=== PATIENT | female | born 1935 | race Caucasian/White ===

== ENCOUNTER → 2016-04-23 | Outpatient (CLI) | payer MEDICARE ==
--- NOTE | 2016-04-27 07:36 | CAROTID DOPPLER PRO FEE REPORT ---
CAROTID DUPLEX DOPPLER REPORT PAT[id number] ROOM#: DATE OF STUDY: 04/23/16 DATE OF : 1935 REFERRING MD: PACHECO FRAUSTO M.D. ORDER NO: [id number] TECHNOLOGIST: VINNY INDICATION: Syncope and TIA. STUDY: The color carotid duplex scan was performed with real time images and real time Doppler velocity measurements. Real time images indicated moderate bilateral heterogenous plaque formation in both carotid arteries. Doppler velocity measurements were as follows: MEASUREMENT: RIGHT LEFT CCA PSV (prox/mid) 84 cm/sec 86 cm/sec CCA PSV (distal) 58 cm/sec 82 cm/sec CCA EDV (prox/mid) 14 cm/sec 14 cm/sec CCA EDV (distal) 12 cm/sec 15 cm/sec ICA PSV (proximal) 51 cm/sec 73 cm/sec ICA PSV (distal) 49 cm/sec 108 cm/sec ICA EDV (proximal) 14 cm/sec 20 cm/sec ICA EDV (distal) 16 cm/sec 26 cm/sec ECA 49 cm/sec 59 cm/sec ICA/CCA RATIO: 0.9 1.3 Vertebrals are patent. Flow is cephalad. FINAL IMPRESSION: MODERATE BILATERAL PLAQUE FORMATION. LESS THAN 50% STENOTIC FLOW. INTERPRETING PHYSICIAN: PACHECO FRAUSTO M.D. /: LSUD TT: [id number] ID: [id number] /: [id number] TD: 1334 JOB: [id number] cc:PACHECO FRAUSTO M.D. >
== END ==
LOC: SP 10:10
PROVIDERS: ATTEND Specialist
DX: G45.9 Transient cerebral ischemic attack, unspecified (principal); R56.9 Unspecified convulsions; R55 Syncope and collapse
CPT/HCPCS: 93880

== ENCOUNTER → 2016-10-12 | Outpatient (CLI) | payer MEDICARE ==
--- NOTE | 2016-10-12 16:46 | RADIOLOGY REPORT (SQ) ---
EXAM DESCRIPTION: HIP LEFT AP/LATERAL COMPLETED DATE/TIME: 10/12/2016 1:33 pm REASON FOR STUDY: PAIN IN LEFT LEG M79.605 PAIN IN LEFT LEG COMPARISON: 02/05/2016 NUMBER OF VIEWS: Two views. TECHNIQUE: AP pelvis and additional frog-leg view of the left hip. LIMITATIONS: None. FINDINGS: MINERALIZATION: Normal. LEFT HIP: There is no acute fracture or dislocation. There is internal fixation for prior femoral ne ck fracture. The joint space is narrowed. Small marginal osteophytes are seen on the femoral head. RIGHT HIP: No fracture or dislocation. No worrisome bone lesions. PUBIS AND ISCHIUM: No fracture. PELVIS: No fracture. SACRUM: No fracture or dislocation. No worrisome bone lesions. LOWER LUMBAR SPINE: No fracture or dislocation. No worrisome bone lesions. No significant disc disea se. SOFT TISSUES: No findings. OTHER: No other significant finding. 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 Internal fixation of a prior fracture. TECHNICAL DOCUMENTATION: JOB ID: [id number] [employer] All Rights Reserved
== END ==
LOC: OD 13:03
PROVIDERS: ATTEND Family Medicine
DX: M79.605 Pain in left leg (principal); M16.12 Unilateral primary osteoarthritis, left hip

== ENCOUNTER → 2016-11-17 | Outpatient (CLI) | payer MEDICARE ==
--- NOTE | 2016-11-17 17:44 | XCELERA REPORT ---
[address] [address] Transthoracic Echocardiogram Report Name: THEODORA JACKSON Age: 81 yrs Gender: Female : 1935 Patient Status: Outpatient Patient Location: Study Date: 11/17/2016 11:09 AM Height: 62 in Weight: 120 lb BSA: 1.5 m2 Procedure: A two-dimensional transthoracic echocardiogram with color flow and Doppler was performed. Study Quality: Fair. Reason For Study: SYNCOPE History: SYNCOPE. Ordering Physician: LUCIE BRADY Performed By: Viky Robertson Interpretation Summary The left ventricle is normal in size. There is normal left ventricular wall thickness. LV EF is > than 60% Left ventricular systolic function is normal. Doppler measurements suggest impaired left ventricular relaxation, which is associated with grade I/IV or mild diastolic dysfunction The left ventricular wall motion is normal. There is no thrombus. There is no ventricular septal defect visualized. The right atrium is normal. The left atrial size is normal. The interatrial septum is intact with no evidence for an atrial septal defect. There is no evidence of mitral valve prolapse. There is no mitral valve stenosis. There is no mitral regurgitation noted. There is no aortic valvular vegetation. There is Aortic Sclerosis without stenosis. There is no LVOT obstruction. There is a mild amount of aortic regurgitation There is no tricuspid stenosis. There is a trace amount of tricuspid regurgitation Right ventricular systolic pressure is normal. RVSP is 12 m of Hg , with RA mean of 5. There is no pericardial effusion. MMode/2D Measurements & Calculations RVDd: 2.5 cm LVIDd: 4.1 cm FS: 33.3 % Ao root diam: 2.9 cm IVSd: 0.89 cm LVIDs: 2.7 cm EDV(Teich): 72.2 ml LVPWd: 0.93 cmESV(Teich): 27.1 ml Ao root area: 6.7 cm2 EF(Teich): 62.5 % LVOT diam: 2.2 cm LVOT area: 4.0 cm2 Doppler Measurements & Calculations MV E max leigh: MV dec slope: Ao V2 max: AI max leigh: 65.9 cm/sec 337.1 cm/sec2 191.6 cm/sec 536.8 cm/sec MV A max leigh: MV dec time: Ao max PG: AI max P.4 cm/sec 0.20 sec 14.7 mmHg 115.3 mmHg MV E/A: 0.80 DARSHAN(V,D): 2.1 cm2AI dec slope: 273.7 cm/sec2 AI P1/2t: 574.6 msec LV V1 max PG: PA V2 max: TR max leigh: 4.3 mmHg 102.5 cm/sec 132.5 cm/sec LV V1 max: PA max P.2 mmHg TR max P.4 cm/sec 7.0 mmHg Left Ventricle The left ventricle is normal in size. There is normal left ventricular wall thickness. LV EF is > than 60%. Left ventricular systolic function is normal. Doppler measurements suggest impaired left ventricular relaxation, which is associated with grade I/IV or mild diastolic dysfunction. The left ventricular wall motion is normal. There is no thrombus. There is no ventricular septal defect visualized. Right Ventricle The right ventricle is normal in size and function. Atria The right atrium is normal. The left atrial size is normal. The interatrial septum is intact with no evidence for an atrial septal defect. Mitral Valve There is no evidence of mitral valve prolapse. There is no vegetation seen on the mitral valve. There is no mitral valve stenosis. There is no mitral regurgitation noted. Aortic Valve There is no aortic valvular vegetation. There is Aortic Sclerosis without stenosis. There is no LVOT obstruction. There is a mild amount of aortic regurgitation. Tricuspid Valve There is no tricuspid stenosis. There is a trace amount of tricuspid regurgitation. Right ventricular systolic pressure is normal. RVSP is 12 m of Hg , with RA mean of 5. Pulmonic Valve There is no pulmonic valvular stenosis. There is no pulmonic valvular regurgitation. Great Vessels The aortic root is normal size. Effusions There is no pericardial effusion. : LUCIE BRADY > Lucie Brady
== END ==
LOC: SP 11:00
PROVIDERS: ATTEND Specialist
DX: R55 Syncope and collapse (principal)
CPT/HCPCS: 93306

== ENCOUNTER → 2017-01-25 | Outpatient (CLI) | payer MEDICARE ==
--- NOTE | 2017-01-25 17:57 | RADIOLOGY REPORT (SQ) ---
EXAM DESCRIPTION: HIPS BILATERAL COMPLETED DATE/TIME: 01/25/2017 5:35 pm REASON FOR STUDY: PAIN IN RIGHT HIP,PAIN IN LEFT HIP M25.551 PAIN IN RIGHT HIP M25.552 PAIN IN LEF T HIP COMPARISON: None. NUMBER OF VIEWS: Two views TECHNIQUE: AP pelvis and additional frog-leg view of both hips. LIMITATIONS: None. FINDINGS: MINERALIZATION: Normal. HIPS: There is pinning of the left hip. The joint spaces are maintained. No acute abnormality is se en in either hip. PELVIS AND SACRUM: No acute fracture or dislocation. No worrisome bone lesions. PUBIS AND ISCHIUM: No acute fracture. LOWER LUMBAR SPINE: No significant findings as visualized. SOFT TISSUES: No findings. OTHER: No other significant finding. IMPRESSION: NEGATIVE STUDY OF THE PELVIS AND HIPS. TECHNICAL DOCUMENTATION: JOB ID: [id number] [employer]- All Rights Reserved
== END ==
LOC: OD 17:01
PROVIDERS: ATTEND Family Medicine
DX: M25.551 Pain in right hip (principal); M25.552 Pain in left hip
CPT/HCPCS: 73522

== ENCOUNTER → 2017-02-17 | Outpatient (CLI) | payer MEDICARE ==
--- NOTE | 2017-02-17 13:44 | WOMENS IMAGING REPORT ---
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 TECHNIQUE: Dual-Energy X-ray Absorptiometry (DEXA) of the AP Spine and Hip. LIMITATIONS: None. FINDINGS: LUMBAR SPINE: The bone mineral density (BMD) measured from L1-L4 in the AP projection correlates with a T-score of -2.2, which is osteopenia as defined by the World Health Organization. Formal: The bone mineral density (BMD) measured in the left forearm correlates with a T-score of -3.6, which is osteoporosis as defined by the World Health Organization. IMPRESSION: 1. LUMBAR SPINE: Osteopenia 2. Forearm: Osteoporosis COMMENT: The World Health Organization defines low BMD as follows: T-score: Normal: Greater than -1.0 Osteopenia: Between -1.0 and -2.5 Osteoporosis: Less than -2.5 without fractures Established osteoporosis: Less than -2.5 with fractures In general, you may wish to consider: Diagnosis Treatment Follow-up DEXA Normal BMD Prevention 2-3 years Osteopenia Prevention/Therapy 1-2 years Osteoporosis Therapy Yearly TECHNICAL DOCUMENTATION: JOB ID: [id number] [employer]- All Rights Reserved
== END ==
LOC: WI 10:40
PROVIDERS: ATTEND Physician Assistant Surgical
DX: M81.0 Age-related osteoporosis without current pathological fracture (principal)
CPT/HCPCS: 77080

== ENCOUNTER → 2017-03-03 | Outpatient (CLI) | payer MEDICARE, MEDICAID ==
[2017-03-03 15:14] LABS: ABSOLUTE EOSINOPHILS # (AUTO) 0.4 10^3/uL (0.0-0.6); ABSOLUTE LYMPHOCYTES (AUTO) 2.1 10^3/uL (0.5-4.7); ABSOLUTE NEUT (AUTO) 7.1 10^3/uL (1.7-8.2); BASOPHILS % (AUTO) 0.4 % (0-2); EOSINOPHILS % (AUTO) 3.8 % (0-6); HEMATOCRIT 38.2 % (36.0-47.0); HEMOGLOBIN 12.8 g/dL (12.0-15.5); LYMPHOCYTES % (AUTO) 19.8 % (13-45); MEAN CORPUSCULAR HEMOGLOBIN 29.4 pg (27.0-33.4); MEAN CORPUSCULAR HGB CONC 33.6 g/dL (32.0-36.0); MEAN CORPUSCULAR VOLUME 87 fl (80-97); MONOCYTES % (AUTO) 9.5 % (3-13); PLATELET COUNT 300 10^3/uL (150-450); RED BLOOD COUNT 4.37 10^6/uL (3.72-5.28); RED CELL DISTRIBUTION WIDTH 14.5 % (11.5-14.0); SEGMENTED NEUTROPHILS % (AUTO) 66.5 % (42-78); TOTAL CELLS COUNTED % (AUTO) 100 %; WHITE BLOOD COUNT 10.7 10^3/uL (4.0-10.5)
[2017-03-03 15:43] LABS: ALANINE AMINOTRANSFERASE 24 U/L (9-52); ALBUMIN 4.3 g/dL (3.5-5.0); ALKALINE PHOSPHATASE 88 U/L (38-126); ANION GAP 10 (5-19); ASPARTATE AMINO TRANSFERASE 22 U/L (14-36); BILIRUBIN,DIRECT 0.1 mg/dL (0.0-0.4); BILIRUBIN,TOTAL 0.7 mg/dL (0.2-1.3); BLOOD UREA NITROGEN 26 mg/dL (7-20); CARBON DIOXIDE 30 mmol/L (22-30); CHLORIDE 104 mmol/L (98-107); GLUCOSE 74 mg/dL (75-110); POTASSIUM 4.1 mmol/L (3.6-5.0); SODIUM 144.4 mmol/L (137-145); TOTAL PROTEIN 7.3 g/dL (6.3-8.2)
== END ==
LOC: OD 14:32
PROVIDERS: ATTEND Physician Assistant Surgical
DX: M81.0 Age-related osteoporosis without current pathological fracture (principal); M16.11 Unilateral primary osteoarthritis, right hip; E21.3 Hyperparathyroidism, unspecified
CPT/HCPCS: 36415; 80053; 82308; 83970; 85025

== ENCOUNTER 2017-08-11 11:06 | Day surgery (SDC) | payer MEDICARE, MEDICAID ==
[~2017-08-11 11:06] MED LIST: PROPOFOL INJ 200 MG/20 ML VIAL IV ONE
[2017-08-11 12:25] VITALS: BP 121/64
--- NOTE | 2017-08-11 13:43 | Operative Report ---
Operative Report DATE OF SURGERY: 08/11/17 Operative Report: The risks, benefits and alternatives of the procedure including risks of bleeding, perforation requiring surgery are explained to the patient in detail and informed consent was obtained. She was taken back to the endoscopy suite and placed in the left, lateral decubital position. Timeout was called. Propofol medications administered. A rectal examination is done which did not reveal any masses, tears or fissures. An Olympus videoscope was inserted into the patient's rectum. The scope was then carefully advanced all the way to the cecum. The cecum was identified by the usual anatomical landmarks including the ileocecal valve as well as the appendiceal office. Photodocumentation is obtained. The scope was then sequentially pulled back via the various segments of the colon including the ascending colon, hepatic flexure, transverse colon, splenic flexure, descending colon and finally into the rectosigmoid portions of the colon. Retroflexion maneuvers performed. The risks benefits and alternatives of the procedure explained to the patient in detail and informed consent is obtained.A GIF Olympus video scope was inserted into the patient's mouth and hypopharynx, the esophagus is identified intubated and insufflated, the scope was then advanced through the esophagus stomach and duodenum, retroflexion maneuver is done, the esophagus stomach and first and second portions of the duodenum examined PREOPERATIVE DIAGNOSIS: Personal history of polyp. Diverticulosis. Abdominal pain, gastroesophageal reflux disease POSTOPERATIVE DIAGNOSIS: Diverticulosis. Right-sided colon inflammation status post biopsy. Gastritis status post biopsy rule out Helicobacter pylori. Internal hemorrhoids OPERATION: Colonoscopy with biopsy. EGD with biopsy SURGEON: WILSON CARNEY ANESTHESIA: LMAC TISSUE REMOVED OR ALTERED: As noted above. COMPLICATIONS: None. ESTIMATED BLOOD LOSS: None. INTRAOPERATIVE FINDINGS: As noted above. PROCEDURE: Patient tolerated the procedure well. No immediate postprocedure complications are noted. Patient discharged in good condition. Discharge date 08/11/2017. Discharge diet: Regular. Discharge activity: Regular. 2-3 week follow-up to discuss findings. Patient is instructed to call the office or proceed to the emergency room should there be any further problems or questions. We will wait on pathology.
== END 2017-08-11 12:10 | disposition home or self-care (01) ==
LOC: END 11:06
PROVIDERS: ATTEND Internal Medicine Gastroenterology
DX: K57.30 Diverticulosis of large intestine without perforation or abscess without bleeding (principal); K52.9 Noninfective gastroenteritis and colitis, unspecified; K29.50 Unspecified chronic gastritis without bleeding; K21.0 Gastro-esophageal reflux disease with esophagitis; K64.8 Other hemorrhoids; Z86.010 Personal history of colon polyps; J44.9 Chronic obstructive pulmonary disease, unspecified; I10 Essential (primary) hypertension; E78.5 Hyperlipidemia, unspecified; D64.9 Anemia, unspecified; E21.3 Hyperparathyroidism, unspecified; I38 Endocarditis, valve unspecified; Z79.899 Other long term (current) drug therapy; Z79.51 Long term (current) use of inhaled steroids; Z79.1 Long term (current) use of non-steroidal anti-inflammatories (NSAID); Z88.2 Allergy status to sulfonamides; Z88.1 Allergy status to other antibiotic agents; Z88.0 Allergy status to penicillin; Z86.73 Personal history of transient ischemic attack (TIA), and cerebral infarction without residual deficits
CPT/HCPCS: 43239; 45380; 88342 ×2; 88305 ×2; J2704; 813

== ENCOUNTER → 2017-12-27 | Outpatient (CLI) | payer MEDICAID, MEDICARE ==
--- NOTE | 2017-12-27 17:41 | RADIOLOGY REPORT (SQ) ---
EXAM DESCRIPTION: CHEST 2 VIEWS COMPLETED DATE/TIME: 12/27/2017 5:23 pm REASON FOR STUDY: MRI SCREENING COMPARISON: None. EXAM PARAMETERS: NUMBER OF VIEWS: two views TECHNIQUE: Digital Frontal and Lateral radiographic views of the chest acquired. RADIATION DOSE: NA LIMITATIONS: none FINDINGS: LUNGS AND PLEURA: Hyperexpansion of the lungs. Subsegmental atelectasis in the bases. MEDIASTINUM AND HILAR STRUCTURES: No masses or contour abnormalities. HEART AND VASCULAR STRUCTURES: Heart normal size. No evidence for failure. BONES: No acute findings. HARDWARE: Heart valve. Sternotomy wires. OTHER: No other significant finding. IMPRESSION: Chronic lung changes. Hardware as described. TECHNICAL DOCUMENTATION: JOB ID: [id number] [employer]- All Rights Reserved Reading location - IP/workstation name: [email or web address]
== END ==
LOC: RAD 16:54
PROVIDERS: ATTEND Family Medicine
DX: R29.810 Facial weakness (principal)
CPT/HCPCS: 71046

== ENCOUNTER 2019-04-27 11:54 | Inpatient (IN) | payer MEDICARE, MEDICAID ==
[~2019-04-27 11:54] MED LIST changes: +DEXAMETHASONE SOD PHOSPHATE INJ 4 MG/1 ML VIAL ONE; -PROPOFOL INJ 200 MG/20 ML VIAL IV ONE
--- NOTE | 2019-04-27 13:09 | RADIOLOGY REPORT (SQ) ---
EXAM DESCRIPTION: SHOULDER RIGHT 2 OR MORE VIEWS COMPLETED DATE/TIME: 04/27/2019 12:54 pm REASON FOR STUDY: fall, decreased ROM COMPARISON: None. NUMBER OF VIEWS: Two views. TECHNIQUE: Frontal and lateral images acquired of the right shoulder. LIMITATIONS: Limited visualization. FINDINGS: MINERALIZATION: Normal. BONES: Possible fracture on the inferior glenoid. Suboptimal visualization of the humeral head. JOINTS: Anterior dislocation of the humeral head. VISUALIZED LUNGS AND RIBS: No pneumothorax. No rib fracture. SOFT TISSUES: No radiopaque foreign body. OTHER: No other significant finding. IMPRESSION: LIMITED STUDY. ANTERIOR DISLOCATION OF THE HUMERAL HEAD. SUBOPTIMAL VISUALIZATION OF T HE HUMERAL HEAD, CANNOT EXCLUDE FRACTURE. THERE IS A POSSIBLE FRACTURE OF THE INFERIOR GLENOID. TECHNICAL DOCUMENTATION: JOB ID: [id number] 2010 [employer]- All Rights Reserved Reading location - IP/workstation name: [email or web address]
[2019-04-27] MEDS ORDERED: ONDANSETRON HCL INJ/PF 4 MG/2 ML SDV IV ONE (13:32)
[2019-04-27] MEDS: FENTANYL CITRATE INJ/PF 100 MCG/2 ML AMPUL IV PRN ×3 (14:20→18:12)
[2019-04-27 14:53] LABS: ABSOLUTE BASOPHILS # (AUTO) 0.1 10^3/uL (0.0-0.2); ABSOLUTE MONOCYTES (AUTO) 0.9 10^3/uL (0.1-1.4); ABSOLUTE NEUT (AUTO) 16.1 10^3/uL (1.7-8.2); BASOPHILS % (AUTO) 0.4 % (0-2); EOSINOPHILS % (AUTO) 0.1 % (0-6); HEMATOCRIT 35.8 % (36.0-47.0); HEMOGLOBIN 12.5 g/dL (12.0-15.5); LYMPHOCYTES % (AUTO) 5.4 % (13-45); MEAN CORPUSCULAR HEMOGLOBIN 29.9 pg (27.0-33.4); MEAN CORPUSCULAR HGB CONC 34.9 g/dL (32.0-36.0); MEAN CORPUSCULAR VOLUME 86 fl (80-97); PLATELET COUNT 248 10^3/uL (150-450); RED BLOOD COUNT 4.18 10^6/uL (3.72-5.28); RED CELL DISTRIBUTION WIDTH 14.5 % (11.5-14.0); SEGMENTED NEUTROPHILS % (AUTO) 89.1 % (42-78); TOTAL CELLS COUNTED % (AUTO) 100 %; WHITE BLOOD COUNT 18.1 10^3/uL (4.0-10.5)
--- NOTE | 2019-04-27 15:00 | RADIOLOGY REPORT (SQ) ---
EXAM DESCRIPTION: CT CERVICAL SPINE WITHOUT COMPLETED DATE/TIME: 04/27/2019 2:45 pm REASON FOR STUDY: neck pain, fall COMPARISON: None. TECHNIQUE: Axial images acquired through the cervical spine without intravenous contrast. Images re viewed with lung, soft tissue and bone windows. Reconstructed coronal and sagittal MPR images review ed. Images stored on PACS. All CT scanners at this facility use dose modulation, iterative reconstruction, and/or weight based d osing when appropriate to reduce radiation dose to as low as reasonably achievable (ALARA). [facility]: Dose Right [facility]: CareDose [facility]: Dose Right [facility]: Teradose 4D [facility]: [employer] RADIATION DOSE: CT Rad equipment meets quality standard of care and radiation dose reduction techniq ues were employed. CTDIvol: 9.5 mGy. DLP: 180 mGy-cm. mGy. LIMITATIONS: None. FINDINGS: ALIGNMENT: Anatomic. MINERALIZATION: Normal. VERTEBRAL BODIES: No fractures or dislocation. DISCS: Multilevel disc space narrowing with osteophytes. FACETS, LATERAL MASSES, POSTERIOR ELEMENTS: Facet arthropathy. No fractures. No dislocation. No ac [place] findings. HARDWARE: None in the spine. VISUALIZED RIBS: No fractures. LUNG APICES AND SOFT TISSUES: No significant or acute findings. OTHER: No other significant finding. IMPRESSION: CHRONIC DEGENERATIVE CHANGES. NO ACUTE FINDINGS. TECHNICAL DOCUMENTATION: JOB ID: [id number] Quality ID # [id number]: Final reports with documentation of one or more dose reduction techniques (e.g., Au tomated exposure control, adjustment of the mA and/or kV according to patient size, use of iterative reconstruction technique) 2010 [employer]- All Rights Reserved Reading location - IP/workstation name: [email or web address]
--- NOTE | 2019-04-27 15:06 | RADIOLOGY REPORT (SQ) ---
EXAM DESCRIPTION: CT RT UPPER EXTREMITY WITHOUT COMPLETED DATE/TIME: 04/27/2019 2:45 pm REASON FOR STUDY: pain, injury, equivocal plain film COMPARISON: X-ray dated 04/27/2019. TECHNIQUE: Axial imaging performed through the right shoulder with reformatted coronal and sagittal imaging windowed for bone and soft tissues. Images saved to PACS. 3D IMAGING: Were 3D images as MIP, SSD, or volume rendering performed at the work station? Yes. All CT scanners at this facility use dose modulation, iterative reconstruction, and/or weight based d osing when appropriate to reduce radiation dose to as low as reasonably achievable (ALARA). [facility]: Dose Right [facility]: CareDose [facility]: Dose Right [facility]: Teradose 4D [facility]: [employer] LIMITATIONS: None. RADIATION DOSE: CT Rad equipment meets quality standard of care and radiation dose reduction techniq ues were employed. CTDIvol: 12.4 mGy. DLP: 261 mGy-cm. mGy. FINDINGS: SOFT TISSUES: No obvious swelling or foreign body. BONES: There is anterior dislocation of the humeral head. There is a displaced comminuted fracture o f the greater tuberosity. The glenoid is interposed between the humeral head and greater tuberosity fragment. The glenoid appears intact. MINERALIZATION: Normal. OTHER: There is airspace disease in the right lower lobe, incompletely imaged. IMPRESSION: 1. ANTERIOR DISLOCATION WITH DISPLACED COMMINUTED FRACTURE OF THE GREATER TUBEROSITY. 2. AIRSPACE DISEASE IN THE RIGHT LOWER LOBE, INCOMPLETELY IMAGED. TECHNICAL DOCUMENTATION: JOB ID: [id number] Quality ID # [id number]: Final reports with documentation of one or more dose reduction techniques (e.g., Au tomated exposure control, adjustment of the mA and/or kV according to patient size, use of iterative reconstruction technique) 2010 [employer]- All Rights Reserved Reading location - IP/workstation name: [email or web address]
[2019-04-27 15:11] LABS: ALBUMIN 3.8 g/dL (3.5-5.0); ALKALINE PHOSPHATASE 79 U/L (38-126); ANION GAP 6 (5-19); ASPARTATE AMINO TRANSFERASE 27 U/L (14-36); BLOOD UREA NITROGEN 23 mg/dL (7-20); CALCIUM 9.2 mg/dL (8.4-10.2); CARBON DIOXIDE 29 mmol/L (22-30); CHLORIDE 101 mmol/L (98-107); GLUCOSE 136 mg/dL (75-110); POTASSIUM 4.4 mmol/L (3.6-5.0); TOTAL PROTEIN 6.6 g/dL (6.3-8.2)
[2019-04-27 16:04] LABS: INTERNATIONAL RATION (INR) 0.94; PROTHROMBIN TIME 12.5 SEC (11.4-15.4)
[2019-04-27 16:05] LABS: PARTIAL THROMBOPLASTIN TIME 30.4 SEC (23.5-35.8)
[2019-04-27] MEDS ORDERED: ETOMIDATE INJ/PF 20 MG/10 ML SDV IV ONE (16:06)
--- NOTE | 2019-04-27 16:41 | ER Document Report ---
ED General - General Chief Complaint: Shoulder Injury Stated Complaint: LEFT SHOULDER PAIN Time Seen by Provider: 04/27/19 13:22 Primary Care Provider: ROBERT SIMEON DO [Primary Care Provider] - Follow up as needed TRAVEL OUTSIDE OF THE [place] IN LAST 30 DAYS: No - HPI Notes: 83-year-old female followed by Dr. Siemon with a history of multiple chronic medical problems and some chronic gait instability now presenting with a chief complaint of fall with injury to right shoulder. The patient has apparently had multiple falls in the past and has been worked up extensively by her primary care doctor with no specific etiology established. She is known to have severe generalized osteoarthritis and has had a previous left hip replacement. She was walking across the floor in her home this morning when she felt like both legs "gave out" and she crumpled to the floor striking her right shoulder against furniture. There was no loss of consciousness but she does complain of some neck discomfort and some abrasions of both knees. - Related Data Allergies/Adverse Reactions: Sulfa (Sulfonamide Antibiotics) Allergy (Severe, Verified 08/11/17 11:00) Anaphylaxis latex Allergy (Mild, Verified 08/11/17 11:00) Generalized rash codeine Allergy (Verified 04/27/19 16:20) Penicillins Adverse Reaction (Severe, Verified 08/11/17 11:00) Anaphylaxis Past Medical History - General Information source: Patient, Relative - Social History Smoking Status: Never Smoker Frequency of alcohol use: None Drug Abuse: None Family History: Reviewed & Not Pertinent Patient has suicidal ideation: No Patient has homicidal ideation: No - Past Medical History Cardiac Medical History: Reports: Hx Coronary Artery Disease, Hx Hypercholesterolemia, Hx Hypertension Denies: Hx Heart Attack Pulmonary Medical History: Reports: Hx Asthma, Hx Bronchitis, Hx COPD - SEVERE Denies: Hx Pneumonia Neurological Medical History: Denies: Hx Cerebrovascular Accident, Hx Seizures Musculoskeletal Medical History: 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 Past Surgical History: Reports: Hx Orthopedic Surgery, Other - Vascular surgery of thoracic aorta - Immunizations Hx Diphtheria, Pertussis, Tetanus Vaccination: No Hx Pneumococcal Vaccination: 01/13/17 Review of Systems - Review of Systems Notes: Constitutional: Negative for fever. HENT: Negative for sore throat. Eyes: Negative for visual changes. Cardiovascular: Negative for chest pain. Respiratory: Negative for shortness of breath. Gastrointestinal: Negative for abdominal pain, vomiting or diarrhea. Genitourinary: Negative for dysuria. Musculoskeletal: As per HPI. Skin: Negative for rash. Neurological: Negative for headaches, weakness or numbness. 10 point ROS negative except as marked above and in HPI. Physical Exam - Vital signs Vitals: Resp BP Pulse Ox 15 160/63 H 96 04/27/19 12:21 04/27/19 12:21 04/27/19 12:21 - Notes Notes: GENERAL: Female patient approximately stated age holding right upper extremity close to her chest in a sling with obvious anterior dislocation. She appears in moderate pain. SKIN: Good turgor no rashes. HEAD: Normocephalic atraumatic. EYES: PERRLA. EOMI. Conjunctivae and sclerae clear. EARS: CANALS AND TMS CLEAR. NOSE: CLEAR. MOUTH: Moist mucosa. Good dentition. No stridor or edema. No drooling. NECK: Mild tenderness posterior C-spine area midline without step-off or crepitus. No masses or thyromegaly. No adenopathy. Carotids 2+ without bruits. No JVD. BACK: Symmetrical without tenderness. CHEST: Respirations unlabored. Breath sounds clear and symmetrical. HEART: Regular rhythm. No murmur gallop or rub. ABDOMEN: Soft nontender without masses, organomegaly or rebound. Bowel sounds normally active. No bruits. GENITALIA: Deferred. EXTREMITIES: Obvious anterior dislocation right shoulder with associated tenderness. Distal neurovascular exam is normal. No calf tenderness. Cap refill less than 1.5 seconds. Dorsalis pedis and posterior tibial pulses 3+ and symmetrical. NEUROLOGICAL: GCS 15. Alert and oriented x3. Fluent speech. Cranial nerves II through XII intact. Sensorimotor and cerebellar normal. Normal tone. PSYCHIATRIC: Anxious affect. Course - Re-evaluation Re-evalutation: 04/27/19 16:39 Patient was given the canal IV for analgesia. She has some superficial abrasions over both knees with no bony deformity or bony tenderness. She has an obvious right shoulder dislocation. Plain film showed significant osteoporosis and question of a fracture of the greater tuberosity. We subsequently got a CT of the C-spine and right shoulder. C-spine shows degenerative changes only. Right shoulder shows a comminuted fracture of the greater tuberosity. There is also an anterior dislocation of the glenohumeral joint. Findings were reviewed with the on-call orthopedist, Dr. Garcia, who is also reviewed the CT scan. He feels that we should be able to reduce this in the emergency department. We will proceed with procedural sedation and closed reduction for the patient at this time. Findings are discussed with the patient and her daughter. Informed consent has been obtained for these procedures. - Vital Signs Vital signs: Temp Pulse Resp BP Pulse Ox 97.7 F 69 14 179/73 H 100 04/27/19 12:27 04/27/19 17:31 04/27/19 17:31 04/27/19 17:41 04/27/19 17:41 - Laboratory Result Diagrams: 04/27/19 14:29 04/27/19 14:29 Laboratory results interpreted by me: 04/27/19 04/27/19 14:29 14:29 WBC 18.1 H Hct 35.8 L RDW 14.5 H Lymph % (Auto) 5.4 L Absolute Neuts (auto) 16.1 H Seg Neutrophils % 89.1 H Sodium 135.6 L BUN 23 H Glucose 136 H Procedures - Conscious Sedation Conscious sedation Time started: 17:00 Time completed: 17:25 Consent obtained: Yes Indication: Anterior dislocation right shoulder Last meal: Greater than 12 hours Emergent conditions applies.: E. - ASA Classification Pt with a severe systemic disease.: P3. - ASA Classification. Airway Evaluation: Normal anatomy Mallampati Classification: Class 2 Used during procedure: Suction available, IV access obtained, Pulse ox on pt., monitor tech on pt. Medications administered: Etomidate I personally performed/intraservice time: Sedation, Procedure, 30 min or less Complications: Yes - Briefly desaturated required minimal bagging with mask. - Joint Reduction/Fracture Care Right Shoulder Time completed: 17:25 Consent obtained: Yes Conscious sedation: Yes Pre-procedure NV exam: Yes Fracture: Closed Manipulation comment: Traction countertraction Post-procedure NV exam: Yes Post-reduction x-ray: Joint not reduced Reduction attempts: 2 Complications: No Notes: 04/27/19 17:43 Orthopedics to admit for reduction in OR Discharge - Discharge Clinical Impression: Fracture dislocation right humerus Fall Qualifiers: Encounter type: initial encounter Qualified Code(s): W19.XXXA - Unspecified fall, initial encounter COPD (chronic obstructive pulmonary disease) Qualifiers: COPD type: unspecified COPD Qualified Code(s): J44.9 - Chronic obstructive pulmonary disease, unspecified CAD (coronary artery disease) Qualifiers: Coronary Disease-Associated Artery/Lesion type: unspecified vessel or lesion type [place] vs. transplanted heart: [place] heart Associated angina: without angina Qualified Code(s): I25.10 - Atherosclerotic heart disease of [place] coronary artery without angina pectoris Condition: Good Disposition: ADMITTED INPATIENT Admitting Provider: Ramakrishna (Hospitalist) Unit Admitted: Medical Floor Referrals: ROBERT SIMEON DO [Primary Care Provider] - Follow up as needed
--- NOTE | 2019-04-27 18:00 | RADIOLOGY REPORT (SQ) ---
EXAM DESCRIPTION: SHOULDER RIGHT 1 VIEW COMPLETED DATE/TIME: 04/27/2019 5:34 pm REASON FOR STUDY: post reduction COMPARISON: 04/27/2019 NUMBER OF VIEWS: One view. TECHNIQUE: An AP image acquired of the right shoulder. LIMITATIONS: None. FINDINGS: MINERALIZATION: Normal. BONES: There is a fracture of the greater tuberosity. JOINTS: Anterior dislocation. VISUALIZED LUNGS AND RIBS: No pneumothorax. No rib fracture. SOFT TISSUES: No radiopaque foreign body. OTHER: No other significant finding. IMPRESSION: Dislocation has not been reduced. There is a displaced fracture of the greater tuberosi ty. TECHNICAL DOCUMENTATION: JOB ID: [id number] 2010 [employer] All Rights Reserved Reading location - IP/workstation name: [email or web address]
--- NOTE | 2019-04-27 18:15 | PDOC H&P ---
History of Present Illness Admission Date/PCP: ROBERT ROSALES DO History of Present Illness: THEODORA JACKSON is a 83 year old female history past medical history of CAD, hyperlipidemia, asthma, arthritis, COPD setting to ED after fall with injury to right shoulder. Patient has history of multiple mechanical falls and has severe osteoarthritis but no definitive cause has been identified by PCP so far, stating that he was walking across the floor this morning her legs gave out and she fell to the ground landing on the right shoulder. Not sustain any other trauma, did not sustain any head trauma did not have any syncope or presyncope. Imaging ED showed anterior dislocation with displaced of the right shoulder. Orthopedic surgery consulted however they want hospitalist to admit Past Medical History Cardiac Medical History: Reports: Coronary Artery Disease, Hyperlipidema, Hypertension Denies: Myocardial Infarction Pulmonary Medical History: Reports: Asthma, Bronchitis, Chronic Obstructive Pulmonary Disease (COPD) - SEVERE Denies: Pneumonia Neurological Medical History: Denies: Seizures Musculoskeltal Medical History: Reports: Arthritis - GENERALIZED Hematology: Denies: Anemia Past Surgical History Past Surgical History: Reports: Orthopedic Surgery, Other - Vascular surgery of thoracic aorta Social History Smoking Status: Never Smoker Family History Family History: Reviewed & Not Pertinent Parental Family History Reviewed: Yes Children Family History Reviewed: Yes Sibling(s) Family History Reviewed.: Yes Medication/Allergy Allergies/Adverse Reactions: Sulfa (Sulfonamide Antibiotics) Allergy (Severe, Verified 08/11/17 11:00) Anaphylaxis latex Allergy (Mild, Verified 08/11/17 11:00) Generalized rash codeine Allergy (Verified 04/27/19 16:20) Penicillins Adverse Reaction (Severe, Verified 08/11/17 11:00) Anaphylaxis Physical Exam Vital Signs: Temp Pulse Resp BP Pulse Ox 97.7 F 69 14 179/73 H 100 04/27/19 12:27 04/27/19 17:31 04/27/19 17:31 04/27/19 17:41 04/27/19 17:41 Intake & Output 04/26/19 04/27/19 04/28/19 06:59 06:59 06:59 Weight 58.9 kg General appearance: PRESENT: no acute distress, well-developed, well-nourished Head exam: PRESENT: atraumatic, normocephalic Respiratory exam: PRESENT: clear to auscultation fabián. ABSENT: rales, rhonchi, wheezes Cardiovascular exam: PRESENT: RRR. ABSENT: diastolic murmur, rubs, systolic murmur GI/Abdominal exam: PRESENT: normal bowel sounds, soft. ABSENT: distended, guarding, mass, organolmegaly, rebound, tenderness Musculoskeletal exam: PRESENT: tenderness - Right shoulder in brace, limited range of motion due to pain, neurovascularly intact. Neurological exam: PRESENT: alert, awake, oriented to person, oriented to place, oriented to time, oriented to situation, CN II-XII grossly intact. ABSENT: motor sensory deficit Results Laboratory Results: 04/27/19 14:29 04/27/19 14:29 04/27/19 04/27/19 14:29 14:29 WBC 18.1 H RBC 4.18 Hgb 12.5 Hct 35.8 L MCV 86 MCH 29.9 MCHC 34.9 RDW 14.5 H Plt Count 248 Seg Neutrophils % 89.1 H Sodium 135.6 L Potassium 4.4 Chloride 101 Carbon Dioxide 29 Anion Gap 6 BUN 23 H Creatinine 0.75 Est GFR ( Amer) > 60 Glucose 136 H Calcium 9.2 Total Bilirubin 1.0 AST 27 Alkaline Phosphatase 79 Total Protein 6.6 Albumin 3.8 Impressions: Shoulder X-Ray 04/27/19 00:00 IMPRESSION: Dislocation has not been reduced. There is a displaced fracture of the greater tuberosity. Cervical Spine CT 04/27/19 13:32 IMPRESSION: CHRONIC DEGENERATIVE CHANGES. NO ACUTE FINDINGS. Upper Extremity CT 04/27/19 13:34 IMPRESSION: 1. ANTERIOR DISLOCATION WITH DISPLACED COMMINUTED FRACTURE OF THE GREATER TUBEROSITY. 2. AIRSPACE DISEASE IN THE RIGHT LOWER LOBE, INCOMPLETELY IMAGED. Assessment and Plan - Diagnosis (1) Shoulder fracture, right Is this a current diagnosis for this admission?: Yes Plan: Traumatic. Supportive measures. Orthopedic surgery consulted. Pending recommendations. (2) CAD (coronary artery disease) Qualifiers: Coronary Disease-Associated Artery/Lesion type: unspecified vessel or lesion type [place] vs. transplanted heart: [place] heart Associated angina: without angina Qualified Code(s): I25.10 - Atherosclerotic heart disease of [place] coronary artery without angina pectoris Is this a current diagnosis for this admission?: Yes Plan: Restart home meds. (3) COPD (chronic obstructive pulmonary disease) Qualifiers: COPD type: unspecified COPD Qualified Code(s): J44.9 - Chronic obstructive pulmonary disease, unspecified Is this a current diagnosis for this admission?: Yes Plan: Restart home meds.
[2019-04-27] MEDS ORDERED: ACETAMINOPHEN 325 MG TABLET PO PRN (18:16)
[2019-04-27] MEDS ORDERED: HYDRALAZINE HCL INJ/PF 20 MG/1 ML SDV IV PRN (18:33)
[2019-04-27] MEDS ORDERED: METOPROLOL TARTRATE PF/INJ 5 MG/5 ML SDV IV PRN (18:33)
--- NOTE | 2019-04-27 19:27 | RADIOLOGY REPORT (SQ) ---
EXAM DESCRIPTION: CT HEAD WITHOUT COMPLETED DATE/TIME: 04/27/2019 7:10 pm REASON FOR STUDY: fall COMPARISON: None. TECHNIQUE: Axial images acquired through the brain without intravenous contrast. Images reviewed wit h bone, brain and subdural windows. Images stored on PACS. All CT scanners at this facility use dose modulation, iterative reconstruction, and/or weight based d osing when appropriate to reduce radiation dose to as low as reasonably achievable (ALARA). [facility]: Dose Right [facility]: CareDose [facility]: Dose Right [facility]: Teradose 4D [facility]: IKOTECH RADIATION DOSE: CT Rad equipment meets quality standard of care and radiation dose reduction techniq ues were employed. CTDIvol: 53.2 mGy. DLP: 937 mGy-cm.. LIMITATIONS: None. FINDINGS: VENTRICLES: Normal size and contour. CEREBRUM: No masses. No hemorrhage. No midline shift. Age appropriate white matter. No evidence for a cute infarction. CEREBELLUM: No masses. No hemorrhage. No alteration of density. No evidence for acute infarction. EXTRA-AXIAL SPACES: No fluid collections. ORBITS AND GLOBE: No intra- or extraconal masses. Normal contour of globe without masses. CALVARIUM: No fracture. PARANASAL SINUSES: No fluid or mucosal thickening. SOFT TISSUES: No mass or hematoma. OTHER: No other significant finding. IMPRESSION: NO ACUTE INTRACRANIAL FINDINGS. EVIDENCE OF ACUTE STROKE: NO. TECHNICAL DOCUMENTATION: JOB ID: [id number] [place]-72 Quality ID # [id number]: Final reports with documentation of one or more dose reduction techniques (e.g., Au tomated exposure control, adjustment of the mA and/or kV according to patient size, use of iterative reconstruction technique) 2010 [employer]- All Rights Reserved Reading location - IP/workstation name: [email or web address]
[2019-04-27] MEDS: HYDROMORPHONE HCL INJ/PF 2 MG/ML AMPULE IV PRN ×2 (20:09→23:21)
[2019-04-27] MEDS: NORMAL SALINE 1000 ML 1,000 ML IV PRN (20:10)
[2019-04-27] MEDS: IPRATROPIUM/ALBUTEROL 0.5-2.5 MG/3 ML AMPUL NEB SCH (20:38)
[2019-04-27] MEDS: FAMOTIDINE 20 MG TABLET PO SCH (22:33)
--- NOTE | 2019-04-27 23:19 | EKG REPORT ---
SEVERITY:- ABNORMAL ECG - SINUS RHYTHM RIGHT BUNDLE BRANCH BLOCK : Confirmed by: Roger Carnes MD 27-Apr-2019 23:18:53
[2019-04-28] MEDS: HYDROMORPHONE HCL INJ/PF 2 MG/ML AMPULE IV PRN ×4 (00:36→14:18)
[2019-04-28 05:44] LABS: ABSOLUTE EOSINOPHILS # (AUTO) 0.1 10^3/uL (0.0-0.6); ABSOLUTE LYMPHOCYTES (AUTO) 2.6 10^3/uL (0.5-4.7); ABSOLUTE MONOCYTES (AUTO) 1.4 10^3/uL (0.1-1.4); ABSOLUTE NEUT (AUTO) 9.6 10^3/uL (1.7-8.2); BASOPHILS % (AUTO) 0.4 % (0-2); EOSINOPHILS % (AUTO) 0.9 % (0-6); HEMATOCRIT 35.7 % (36.0-47.0); HEMOGLOBIN 11.9 g/dL (12.0-15.5); LYMPHOCYTES % (AUTO) 18.7 % (13-45); MEAN CORPUSCULAR HEMOGLOBIN 29.1 pg (27.0-33.4); MEAN CORPUSCULAR HGB CONC 33.4 g/dL (32.0-36.0); MEAN CORPUSCULAR VOLUME 87 fl (80-97); MONOCYTES % (AUTO) 10.1 % (3-13); PLATELET COUNT 236 10^3/uL (150-450); RED BLOOD COUNT 4.09 10^6/uL (3.72-5.28); RED CELL DISTRIBUTION WIDTH 14.5 % (11.5-14.0); SEGMENTED NEUTROPHILS % (AUTO) 69.9 % (42-78); TOTAL CELLS COUNTED % (AUTO) 100 %; WHITE BLOOD COUNT 13.8 10^3/uL (4.0-10.5)
[2019-04-28 05:46] LABS: INTERNATIONAL RATION (INR) 1.02; PROTHROMBIN TIME 13.4 SEC (11.4-15.4)
[2019-04-28 05:47] LABS: PARTIAL THROMBOPLASTIN TIME 34.1 SEC (23.5-35.8)
[2019-04-28 06:00] LABS: ALKALINE PHOSPHATASE 77 U/L (38-126); ANION GAP 9 (5-19); ASPARTATE AMINO TRANSFERASE 33 U/L (14-36); BILIRUBIN,DIRECT 0.1 mg/dL (0.0-0.4); BILIRUBIN,TOTAL 1.8 mg/dL (0.2-1.3); BLOOD UREA NITROGEN 22 mg/dL (7-20); CARBON DIOXIDE 28 mmol/L (22-30); CHLORIDE 100 mmol/L (98-107); GLUCOSE 105 mg/dL (75-110); POTASSIUM 4.6 mmol/L (3.6-5.0); TOTAL PROTEIN 7.1 g/dL (6.3-8.2)
[2019-04-28] MEDS: NORMAL SALINE 1000 ML 1,000 ML IV PRN (06:36)
[2019-04-28] MEDS: IPRATROPIUM/ALBUTEROL 0.5-2.5 MG/3 ML AMPUL NEB SCH ×3 (08:28→19:46)
[2019-04-28] MEDS ORDERED: OXYCODONE-ACETAMINOPHEN 5-325 MG TABLET PO PRN ×4 (09:09→19:21)
[2019-04-28] MEDS: FAMOTIDINE 20 MG TABLET PO SCH ×3 (10:10→22:01)
[2019-04-28] MEDS: FLUTICASONE/UMECLIDIN/VILANTER 100-62.5-25 MCG/DOSE IH SCH (10:19)
[2019-04-28] MEDS: ONDANSETRON HCL INJ/PF 4 MG/2 ML SDV IV PRN (11:17)
[2019-04-28] MEDS ORDERED: ALBUTEROL SULFATE HFA (90 MCG/PUFF) 200 PUFF/8.5 GM MDI IH PRN (12:16)
--- NOTE | 2019-04-28 12:19 | PDOC PROGRESS REPORT ---
Subjective Progress Note for:: 04/28/19 Subjective:: THEODORA JACKSON is a 83 year old female history past medical history of CAD, hyperlipidemia, asthma, arthritis, COPD setting to ED after fall with injury to right shoulder. Patient has history of multiple mechanical falls and has severe osteoarthritis but no definitive cause has been identified by PCP so far, stating that he was walking across the floor this morning her legs gave out and she fell to the ground landing on the right shoulder. Not sustain any other trauma, did not sustain any head trauma did not have any syncope or presyncope. Imaging ED showed anterior dislocation with displaced of the right shoulder. Orthopedic surgery consulted however they want hospitalist to admit 04/28/2019. No acute events overnight. Patient still complaining of persistent right shoulder pain. Stating that Dilaudid does not help much. Pending evaluation by orthopedic surgeon. Reason For Visit: RIGHT SHOULDER FRACTURE Physical Exam Vital Signs: Temp Pulse Resp BP Pulse Ox 98.4 F 82 16 123/91 H 99 04/28/19 07:26 04/28/19 08:30 04/28/19 08:30 04/28/19 07:26 04/28/19 08:30 Intake & Output 04/27/19 04/28/19 04/29/19 06:59 06:59 06:59 Intake Total 835 Balance 835 Weight 58.2 kg General appearance: PRESENT: no acute distress, well-developed, well-nourished Head exam: PRESENT: atraumatic, normocephalic Neck exam: ABSENT: carotid bruit, JVD, lymphadenopathy, thyromegaly Respiratory exam: PRESENT: clear to auscultation fabián. ABSENT: rales, rhonchi, wheezes Cardiovascular exam: PRESENT: RRR. ABSENT: diastolic murmur, rubs, systolic murmur GI/Abdominal exam: PRESENT: normal bowel sounds, soft. ABSENT: distended, guarding, mass, organolmegaly, rebound, tenderness Extremities exam: PRESENT: full ROM, other - Shoulder limited range of motion due to severe pain. Neurovascularly intact. Refuses to move right upper extremity stating is too painful.. ABSENT: calf tenderness, clubbing, pedal edema Neurological exam: PRESENT: alert, awake, oriented to person, oriented to place, oriented to time, oriented to situation, CN II-XII grossly intact. ABSENT: motor sensory deficit Results Laboratory Results: 04/28/19 04:23 04/28/19 04:23 04/27/19 04/27/19 04/28/19 14:29 14:29 04:23 WBC 18.1 H 13.8 H RBC 4.18 4.09 Hgb 12.5 11.9 L Hct 35.8 L 35.7 L MCV 86 87 MCH 29.9 29.1 MCHC 34.9 33.4 RDW 14.5 H 14.5 H Plt Count 248 236 Seg Neutrophils % 89.1 H 69.9 Sodium 135.6 L Potassium 4.4 Chloride 101 Carbon Dioxide 29 Anion Gap 6 BUN 23 H Creatinine 0.75 Est GFR ( Amer) > 60 Glucose 136 H Calcium 9.2 Magnesium Total Bilirubin 1.0 AST 27 Alkaline Phosphatase 79 Total Protein 6.6 Albumin 3.8 04/28/19 04:23 WBC RBC Hgb Hct MCV MCH MCHC RDW Plt Count Seg Neutrophils % Sodium 136.7 L Potassium 4.6 Chloride 100 Carbon Dioxide 28 Anion Gap 9 BUN 22 H Creatinine 0.67 Est GFR ( Amer) > 60 Glucose 105 Calcium 9.0 Magnesium 2.3 Total Bilirubin 1.8 H AST 33 Alkaline Phosphatase 77 Total Protein 7.1 Albumin 4.0 Impressions: Shoulder X-Ray 04/27/19 00:00 IMPRESSION: Dislocation has not been reduced. There is a displaced fracture of the greater tuberosity. Cervical Spine CT 04/27/19 13:32 IMPRESSION: CHRONIC DEGENERATIVE CHANGES. NO ACUTE FINDINGS. Upper Extremity CT 04/27/19 13:34 IMPRESSION: 1. ANTERIOR DISLOCATION WITH DISPLACED COMMINUTED FRACTURE OF THE GREATER TUBEROSITY. 2. AIRSPACE DISEASE IN THE RIGHT LOWER LOBE, INCOMPLETELY IMAGED. Head CT 04/27/19 18:39 IMPRESSION: NO ACUTE INTRACRANIAL FINDINGS. EVIDENCE OF ACUTE STROKE: NO. Assessment and Plan - Diagnosis (1) Shoulder fracture, right Is this a current diagnosis for this admission?: Yes Plan: Traumatic. Supportive measures. Orthopedic surgery consulted. Pending recommendations. (2) CAD (coronary artery disease) Qualifiers: Coronary Disease-Associated Artery/Lesion type: unspecified vessel or lesion type [place] vs. transplanted heart: [place] heart Associated angina: without angina Qualified Code(s): I25.10 - Atherosclerotic heart disease of [place] coronary artery without angina pectoris Is this a current diagnosis for this admission?: Yes Plan: Denies any history of CAD. 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 (3) COPD (chronic obstructive pulmonary disease) Qualifiers: COPD type: unspecified COPD Qualified Code(s): J44.9 - Chronic obstructive pulmonary disease, unspecified Is this a current diagnosis for this admission?: Yes (4) Fall Qualifiers: Encounter type: initial encounter Qualified Code(s): W19.XXXA - Unspecified fall, initial encounter Is this a current diagnosis for this admission?: Yes Plan: History of recurrent mechanical falls. Setting that usually her knees give out. Denies any lightheadedness, palpitation, syncope or presyncope. Denies any history of seizure. Continue fall and seizure precautions. (5) Hypertension Is this a current diagnosis for this admission?: Yes Plan: Normotensive. Euvolemic. Restart home meds. (6) Hyperlipidemia Is this a current diagnosis for this admission?: Yes Plan: Resume home meds.
--- NOTE | 2019-04-28 12:38 | RADIOLOGY REPORT (SQ) ---
EXAM DESCRIPTION: CHEST SINGLE VIEW COMPLETED DATE/TIME: 04/28/2019 10:01 am REASON FOR STUDY: preop COMPARISON: PA and lateral views of the chest from 12/27/2017. EXAM PARAMETERS: NUMBER OF VIEWS: One view. TECHNIQUE: An AP view of the chest was obtained. RADIATION DOSE: NA LIMITATIONS: None. FINDINGS: LUNGS AND PLEURA: No consolidation, pleural effusion or pneumothorax. MEDIASTINUM AND HILAR STRUCTURES: No mediastinal or hilar contour abnormality. HEART AND VASCULAR STRUCTURES: The cardiac silhouette is enlarged. BONES: Fracture dislocation of the right humerus. HARDWARE: Status post median sternotomy. There is a left atrial appendage occlusion device in place. OTHER: No other finding. IMPRESSION: Cardiomegaly without a superimposed acute cardiopulmonary process. TECHNICAL DOCUMENTATION: JOB ID: [id number] 2010 [employer]- All Rights Reserved Reading location - IP/workstation name: [email or web address]
[2019-04-28] MEDS: ENOXAPARIN SODIUM INJ 40 MG/0.4 ML DISP.SYRIN SUBCUT SCH (14:22)
[2019-04-28] MEDS: LISINOPRIL 10 MG TABLET PO SCH (14:29)
[2019-04-28] MEDS ORDERED: ROPIVACAINE HCL 0.5% INJ/PF (5 MG/1 ML) 30 ML SDV ONE ×2 (15:48→19:54)
[2019-04-28] MEDS ORDERED: LIDOCAINE 1%/EPINEPHRINE INJ 20 ML VIAL ONE (15:49)
[2019-04-28] MEDS ORDERED: LIDOCAINE 2% INJ-PF (20 MG/ML) 10 ML AMPUL ONE (15:50)
[2019-04-28] MEDS ORDERED: LIDOCAINE 2% INJ (20 MG/ML) 20 ML MDV ONE ×2 (15:51→19:54)
[2019-04-28] MEDS ORDERED: PROPOFOL INJ 200 MG/20 ML VIAL IV ONE (16:27)
[2019-04-28] MEDS ORDERED: MIDAZOLAM 2 MG/2 ML INJ ONE (16:27)
[2019-04-28] MEDS ORDERED: FENTANYL CITRATE INJ/PF 100 MCG/2 ML AMPUL ONE ×2 (16:27→17:04)
--- NOTE | 2019-04-28 16:58 | PDOC CONSULTATION ---
Consultation Consult Date: 04/28/19 Attending physician:: CYNDIE HARTMANN Provider Consulted: SAMUEL HAMMONDS Consult reason:: Right shoulder anterior dislocation with associated greater tuberosity fracture History of Present Illness Admission Date/PCP: 04/27/19 18:15 ROBERT ROSALES DO Patient complains of: Right shoulder pain post dislocation History of Present Illness: THEODORA JACKSON is a 83 year old female with a history of multiple falls. She sustained a low-energy fall yesterday when her knee just gave out. She sustained a closed anterior dislocation of the right shoulder with associated greater tuberosity fracture. Manipulative reduction in the emergency department under sedation was unsuccessful. She has been admitted to the hospitalist service for optimization. Past Medical History Cardiac Medical History: Reports: Coronary Artery Disease, Hyperlipidema, Hypertension Denies: Myocardial Infarction Pulmonary Medical History: Reports: Asthma, Bronchitis, Chronic Obstructive Pulmonary Disease (COPD) - SEVERE Denies: Pneumonia Neurological Medical History: Denies: Seizures Endocrine Medical History: Denies: None, Diabetes Mellitus Type 1, Diabetes Mellitus Type 2, Gestational Diabetes, Hyperthyroidism, Hypothyroidism, Obesity, Other Renal/ Medical History: Denies: None, Chronic Kidney Disease, End Stage Renal Disease, Nephrolithiasis, Other Malignancy Medical History: Denies: None, Bone Cancer, Brain Cancer, Breast Cancer, Cervical Cancer, Colorectal Cancer, Leukemia, Liver Cancer, Lung Cancer, Lymphoma, Ovarian Cancer, Pancreatic Cancer, Renal (Kidney) Cancer, Skin Cancer, Other GI Medical History: Denies: None, Cirrhosis, Crohn's Disease, Diverticulitis, Gastroesophageal Reflux Disease, Hepatitis, Hiatal Hernia, Peptic Ulcer Disease, Ulcerative Colitis, Other Musculoskeltal Medical History: Reports: Arthritis - GENERALIZED Skin Medical History: Denies: None, Eczema, Psoriasis, Other Psychiatric Medical History: Denies: Depression Traumatic Medical History: Denies: None, Gunshot Wound, Pneumothorax, Stab Wound, Traumatic Brain Injury, Other Infectious Medical History: Denies: None, Clostridium Difficile, Hepatitis B, Hepatitis C, HIV, Methicillin-Resistant Staph Aureus, Vancomycin-Resistant Enterococci, Other Past Surgical History Past Surgical History: Reports: Orthopedic Surgery - Percutaneous pinning of hip fracture, Vascular Surgery - Repair of aortic rupture, Other - Vascular surgery of thoracic aorta Social History Smoking Status: Smoker,Current Status Unk Electronic Cigarette use?: No Frequency of Alcohol Use: None Hx Recreational Drug Use: No Drugs: None Hx Prescription Drug Abuse: No - Advance Directive Resuscitation Status: Full Code Family History Family History: Reviewed & Not Pertinent, COPD Parental Family History Reviewed: Yes Children Family History Reviewed: Yes Sibling(s) Family History Reviewed.: Yes Medication/Allergy Home Medications: Albuterol Sulfate [Proair HFA Inhalation Aerosol 8.5 gm MDI] 2 puff IH Q6HP PRN 04/27/19 Amlodipine Besylate [Norvasc 5 mg Tablet] 5 mg PO DAILY 04/27/19 Aspirin [Ecotrin 81 mg EC Tablet] 81 mg PO DAILY 04/27/19 Atorvastatin Calcium [Lipitor 40 mg Tablet] 40 mg PO QHS 04/27/19 Budesonide/Formoterol Fumarate [Symbicort HFA 160-4.5 mcg Inhaler 6 gm] 2 puff IH Q12 04/27/19 Cholecalciferol (Vitamin D3) [Vitamin D3 1000 Unit Tablet] 1,000 unit PO DAILY 04/27/19 Lisinopril [Zestril] 10 mg PO DAILY 04/27/19 Oxycodone HCl/Acetaminophen [Percocet 5-325 mg Tablet] 1 tab PO DAILYP PRN Psyllium Husk (with Sugar) [Metamucil Packet] 1 packet PO DAILY 04/27/19 Allergies/Adverse Reactions: Sulfa (Sulfonamide Antibiotics) Allergy (Severe, Verified 04/27/19 18:46) Anaphylaxis latex Allergy (Mild, Verified 04/27/19 18:46) Generalized rash codeine Allergy (Verified 04/27/19 18:46) Penicillins Adverse Reaction (Severe, Verified 04/27/19 18:46) Anaphylaxis Review of Systems Constitutional: ABSENT: chills, fever(s), headache(s), weight gain, weight loss Eyes: ABSENT: as per HPI, visual disturbances, other Ears: ABSENT: as per HPI, hearing changes, other Nose, Mouth, and Throat: ABSENT: as per HPI, headache(s), mouth pain, sore throat, vertigo, other Breasts: ABSENT: as per HPI, other Respiratory: PRESENT: as per HPI Gastrointestinal: ABSENT: abdominal pain, constipation, diarrhea, hematemesis, hematochezia, nausea, vomiting Genitourinary: ABSENT: dysuria, hematuria Musculoskeletal: PRESENT: as per HPI Integumentary: ABSENT: as per HPI, diaphoresis, erythema, lesions, pruritus, rash, wounds, other Neurological: ABSENT: as per HPI, abnormal gait, abnormal movements, abnormal speech, confusion, convulsions, dizziness, focal weakness, frequent falls, lack of coordination, memory loss, numbness, paresthesias, restless legs, syncope, tingling, tremor(s), vertigo, weakness, other Psychiatric: ABSENT: as per HPI, anxiety, depression, hallucinations, homidical ideation, suicidal ideation, other Endocrine: ABSENT: as per HPI, cold intolerance, flushing, heat intolerance, menstrual abnormalities, polydipsia, polyphagia, polyuria, other Hematologic/Lymphatic: ABSENT: as per HPI, easy bleeding, easy bruising, lymphadenopathy, other Physical Exam Vital Signs: Temp Pulse Resp BP Pulse Ox 98.6 F 93 12 138/59 H 99 04/28/19 14:30 04/28/19 14:30 04/28/19 14:30 04/28/19 14:30 04/28/19 14:30 Intake & Output 04/27/19 04/28/19 04/29/19 06:59 06:59 06:59 Intake Total 835 Balance 835 Weight 58.2 kg General appearance: PRESENT: no acute distress, well-developed, well-nourished Head exam: PRESENT: atraumatic, normocephalic Eye exam: PRESENT: conjunctiva pink, EOMI, PERRLA. ABSENT: scleral icterus Ear exam: PRESENT: normal external ear exam Mouth exam: PRESENT: moist, tongue midline. ABSENT: dry mucosa, laceration, neck supple, other Neck exam: ABSENT: carotid bruit, JVD, lymphadenopathy, thyromegaly Respiratory exam: PRESENT: accessory muscle use, clear to auscultation fabián, decreased breath sounds Cardiovascular exam: PRESENT: RRR. ABSENT: diastolic murmur, rubs, systolic murmur Pulses: PRESENT: normal dorsalis pedis pul GI/Abdominal exam: PRESENT: normal bowel sounds, soft. ABSENT: distended, guarding, mass, organolmegaly, rebound, tenderness Rectal exam: PRESENT: deferred Extremities exam: PRESENT: full ROM. ABSENT: calf tenderness, clubbing, pedal edema Musculoskeletal exam: PRESENT: other - The right shoulder is immobilized in a sling. The right shoulder is obviously dislocated. The patient is able to move her elbow, wrist, and hand. 2+ radial and ulnar pulses are present. Sensation is intact to touch. There is a slight decrease in sensation on the lateral aspect of her shoulder. Neurological exam: PRESENT: alert, awake, oriented to person, oriented to place, oriented to time, oriented to situation, CN II-XII grossly intact. ABSENT: motor sensory deficit Psychiatric exam: PRESENT: appropriate affect, normal mood. ABSENT: homicidal ideation, suicidal ideation Results Laboratory Results: 04/28/19 04:23 04/28/19 04:23 04/28/19 04/28/19 04:23 04:23 WBC 13.8 H RBC 4.09 Hgb 11.9 L Hct 35.7 L MCV 87 MCH 29.1 MCHC 33.4 RDW 14.5 H Plt Count 236 Seg Neutrophils % 69.9 Sodium 136.7 L Potassium 4.6 Chloride 100 Carbon Dioxide 28 Anion Gap 9 BUN 22 H Creatinine 0.67 Est GFR ( Amer) > 60 Glucose 105 Calcium 9.0 Magnesium 2.3 Total Bilirubin 1.8 H AST 33 Alkaline Phosphatase 77 Total Protein 7.1 Albumin 4.0 Impressions: Shoulder X-Ray 04/27/19 00:00 IMPRESSION: Dislocation has not been reduced. There is a displaced fracture of the greater tuberosity. Cervical Spine CT 04/27/19 13:32 IMPRESSION: CHRONIC DEGENERATIVE CHANGES. NO ACUTE FINDINGS. Upper Extremity CT 04/27/19 13:34 IMPRESSION: 1. ANTERIOR DISLOCATION WITH DISPLACED COMMINUTED FRACTURE OF THE GREATER TUBER OSITY. 2. AIRSPACE DISEASE IN THE RIGHT LOWER LOBE, INCOMPLETELY IMAGED. Head CT 04/27/19 18:39 IMPRESSION: NO ACUTE INTRACRANIAL FINDINGS. EVIDENCE OF ACUTE STROKE: NO. Chest X-Ray 04/28/19 00:00 IMPRESSION: Cardiomegaly without a superimposed acute cardiopulmonary process. Assessment & Plan - Time Time Spent: 30 to 50 Minutes Anticipated discharge: Home Within: within 24 hours - Plan Summary Plan Summary: I have reviewed the findings with the patient and her daughter. The patient has sustained a closed dislocation of the right shoulder with an associated displaced fracture of the greater tuberosity. We have discussed treatment options including simple closed reduction with later imaging of the greater tuberosity. The patient and family understand that if the greater tuberosity is displaced greater than 5 mm she would require an additional surgical procedure i ncluding anesthesia. The other treatment option is repair of the greater tuberosity acutely along with the anesthetic for reduction of the shoulder dislocation. Risks, benefits, and alternatives of both of these procedures were discussed with the patient and her daughter. An opportunity for questions was provided. All questions were answered to their satisfaction. In particular the risk of with anesthesia, the risk of infection, the risk of injury to nerves and vessels, the risk of nonunion and malunion, and the possible need for additional surgical procedures were discussed. The patient and daughter both expressed understanding of these issues. They have chosen to proceed with acute open reduction with internal fixation of the greater tuberosity fracture to be performed concurrently with reduction of the shoulder dislocation.
[2019-04-28] MEDS ORDERED: ONDANSETRON HCL INJ/PF 4 MG/2 ML SDV ONE (17:04)
[2019-04-28] MEDS ORDERED: DEXAMETHASONE SOD PHOSPHATE INJ 4 MG/1 ML VIAL ONE (17:04)
[2019-04-28] MEDS ORDERED: CEFAZOLIN INJ 1 GM VIAL ONE (17:07)
[2019-04-28] MEDS ORDERED: MEPERIDINE HCL/PF INJ 25 MG/1 ML DISP.SYRIN IV PRN (19:21)
[2019-04-28] MEDS ORDERED: FENTANYL CITRATE INJ/PF 100 MCG/2 ML AMPUL IV PRN ×3 (19:21)
[2019-04-28] MEDS ORDERED: MORPHINE SULFATE 10 MG/ML INJ IV PRN (19:21)
[2019-04-28] MEDS ORDERED: ONDANSETRON HCL INJ/PF 4 MG/2 ML SDV IV PRN (19:21)
--- NOTE | 2019-04-28 19:39 | Operative Report ---
Operative Report DATE OF SURGERY: 04/28/19 PREOPERATIVE DIAGNOSIS: Right shoulder anterior dislocation. Right shoulder gr eater tuberosity fracture POSTOPERATIVE DIAGNOSIS: Right shoulder anterior dislocation. Right shoulder greater tuberosity fracture. Right shoulder rotator cuff tear OPERATION: 1. Right shoulder open reduction anterior shoulder dislocation. 2. Right shoulder open reduction internal fixation greater tuberosity fracture. 3. Open rotator cuff repair SURGEON: SAMUEL HAMMONDS ANESTHESIA: GA COMPLICATIONS: None ESTIMATED BLOOD LOSS: 50 cc INTRAOPERATIVE FINDINGS: Same PROCEDURE: Indications for procedure: Ms. Monson is an 83-year-old woman who sustained a low-energy fall yesterday. She presented to the emergency department at [facility]. She sustained a closed anterior shoulder dislocation with associated greater tuberosity fracture. Several attempts at closed reduction of the right shoulder dislocation were attempted in the emergency department but were unsuccessful. Description of procedure: Following the administration of general anesthesia and 2 g of Ancef, the patient was positioned in the beachchair position. All bony prominences were padded. The right upper extremity was sterilely prepped with ChloraPrep and draped in standard fashion. Under image intensification manipulative reduction of the shoulder was performed for a closed reduction under anesthesia. The shoulder would reduce but spontaneously re-dislocate. This occurred 3 times. It was therefore decided to perform an open reduction. A saber type incision was performed in line with the acromion and in line with Sandhya's lines. Sharp incision was performed through skin with cautery used to coagulate small superficial bleeders. The deltoid was split in line with its fibers. A stay suture was placed 4 cm below the acromion to prevent propagation of the deltoid split. The dislocated humerus was grasped and reduced. The greater tuberosity fracture was then manipulated and placed back into its bony bed. It was initially fixed in place with 2 cannulated 4.0 millimeter screws with washers from the [place] [employer] set. The rotator cuff attachment was then grasped with 2, #2 FiberWire sutures. The sutures were then crossed in a [id number] fashion and docked into a tunnel in the humerus using a swivel lock Arthrex anchor. The additional suture in the Arthrex anchor was also used in a crossing figure of 8 suture technique and tied to itself proximally. The shoulder was taken through a full range of motion. Following repair of the greater tuberosity there was no longer instability and the shoulder did not demonstrate a propensity to re-dislocate. An additional #2 FiberWire suture was used to perform side to side repair of the rotator cuff in the region where the large greater tuberosity fragment had ruptured the rotator cuff. Multiple interrupted horizontal mattress sutures were performed side to side. The wound was then irrigated.The deltoid split was reapproximated [id number] with 0 Vicryl. The subcutaneous tissue was closed with 2-0 Vicryl. The skin was reapproximated with a subcuticular 3-0 Monocryl suture. Steri-Strips were then applied. A sterile dressing was then applied. The patient tolerated the procedure well without complications and was brought to recovery room in stable condition.
--- NOTE | 2019-04-28 19:43 | PDOC PROGRESS REPORT ---
Subjective Progress Note for:: 04/28/19 Subjective:: Postoperative communication with medical staff Reason For Visit: RIGHT SHOULDER FRACTURE The patient is status post open reduction of the anterior shoulder dislocation, osteosynthesis of the greater tuberosity fracture, and rotator cuff repair. Physical Exam Vital Signs: Temp Pulse Resp BP Pulse Ox 98.6 F 93 12 138/59 H 99 04/28/19 14:30 04/28/19 14:30 04/28/19 14:30 04/28/19 14:30 04/28/19 14:30 Intake & Output 04/27/19 04/28/19 04/29/19 06:59 06:59 06:59 Intake Total 835 Balance 835 Weight 58.2 kg Results Laboratory Results: 04/28/19 04:23 04/28/19 04:23 04/28/19 04/28/19 04:23 04:23 WBC 13.8 H RBC 4.09 Hgb 11.9 L Hct 35.7 L MCV 87 MCH 29.1 MCHC 33.4 RDW 14.5 H Plt Count 236 Seg Neutrophils % 69.9 Sodium 136.7 L Potassium 4.6 Chloride 100 Carbon Dioxide 28 Anion Gap 9 BUN 22 H Creatinine 0.67 Est GFR ( Amer) > 60 Glucose 105 Calcium 9.0 Magnesium 2.3 Total Bilirubin 1.8 H AST 33 Alkaline Phosphatase 77 Total Protein 7.1 Albumin 4.0 Impressions: Shoulder X-Ray 04/27/19 00:00 IMPRESSION: Dislocation has not been reduced. There is a displaced fracture of the greater tuberosity. Cervical Spine CT 04/27/19 13:32 IMPRESSION: CHRONIC DEGENERATIVE CHANGES. NO ACUTE FINDINGS. Upper Extremity CT 04/27/19 13:34 IMPRESSION: 1. ANTERIOR DISLOCATION WITH DISPLACED COMMINUTED FRACTURE OF THE GREATER TUBEROSITY. 2. AIRSPACE DISEASE IN THE RIGHT LOWER LOBE, INCOMPLETELY IMAGED. Head CT 04/27/19 18:39 IMPRESSION: NO ACUTE INTRACRANIAL FINDINGS. EVIDENCE OF ACUTE STROKE: NO. Chest X-Ray 04/28/19 00:00 IMPRESSION: Cardiomegaly without a superimposed acute cardiopulmonary process. Assessment & Plan - Time Time Spent with patient: 35 or more minutes - Plan Summary Plan Summary: The patient is clear for discharge from an orthopedic standpoint. The patient surgery is essentially an outpatient procedure requiring overnight admission due to medical comorbidities. She may be discharged to home when medically stable. She should be maintained in a sling at all times. There is a prescription in her chart for Percocet. She should schedule a follow-up appointment with Dr. Garcia in 2 weeks.
[2019-04-28] MEDS: ATORVASTATIN CALCIUM 40 MG TABLET PO SCH ×2 (21:59→22:01)
[2019-04-28] MEDS ORDERED: CEFAZOLIN 2 GM/D5W RTU 2 GM/50 ML RTUPB IV SCH (22:00)
[2019-04-29] MEDS: CEFAZOLIN SODIUM 2 GM in DEXTROSE 5%-WATER 100 ML IV SCH ×2 (01:17→13:11)
[2019-04-29] MEDS: ONDANSETRON HCL INJ/PF 4 MG/2 ML SDV IV PRN ×4 (06:39→21:14)
[2019-04-29] MEDS: OXYCODONE-ACETAMINOPHEN 5-325 MG TABLET PO PRN ×4 (06:39→21:14)
--- NOTE | 2019-04-29 08:05 | RADIOLOGY REPORT (SQ) ---
EXAM DESCRIPTION: NO CHG FLUORO; SHOULDER RIGHT 1 VIEW COMPLETED DATE/TIME: 04/28/2019 7:59 pm REASON FOR STUDY: SCREWS AND CR OF SHOULDER COMPARISON: None. FLUOROSCOPY TIME: 0.3 minutes 3 images saved to PACS. TECHNIQUE: Intra-operative images acquired during surgical procedure to evaluate progress. NUMBER OF IMAGES: 3 LIMITATIONS: None. FINDINGS: Images reveal open reduction internal fixation of proximal humerus fracture. Correlate wi th operative note. IMPRESSION: IMAGE(S) OBTAINED DURING PROCEDURE. COMMENT: Quality ID [id number]: Final reports for procedures using fluoroscopy that document radiation exp osure indices, or exposure time and number of fluorographic images (if radiation exposure indices are not available) Please consult full operative report of the attending physician for description of the procedure. TECHNICAL DOCUMENTATION: JOB ID: [id number] 2010 [employer]- All Rights Reserved Reading location - IP/workstation name: [email or web address]
--- NOTE | 2019-04-29 08:05 | RADIOLOGY REPORT (SQ) ---
EXAM DESCRIPTION: NO CHG FLUORO; SHOULDER RIGHT 1 VIEW COMPLETED DATE/TIME: 04/28/2019 7:59 pm REASON FOR STUDY: SCREWS AND CR OF SHOULDER COMPARISON: None. FLUOROSCOPY TIME: 0.3 minutes 3 images saved to PACS. TECHNIQUE: Intra-operative images acquired during surgical procedure to evaluate progress. NUMBER OF IMAGES: 3 LIMITATIONS: None. FINDINGS: Images reveal open reduction internal fixation of proximal humerus fracture. Correlate wi th operative note. IMPRESSION: IMAGE(S) OBTAINED DURING PROCEDURE. COMMENT: Quality ID [id number]: Final reports for procedures using fluoroscopy that document radiation exp osure indices, or exposure time and number of fluorographic images (if radiation exposure indices are not available) Please consult full operative report of the attending physician for description of the procedure. TECHNICAL DOCUMENTATION: JOB ID: [id number] 2010 [employer] All Rights Reserved Reading location - IP/workstation name: [email or web address]
[2019-04-29 08:22] LABS: ABSOLUTE LYMPHOCYTES (AUTO) 0.9 10^3/uL (0.5-4.7); ABSOLUTE MONOCYTES (AUTO) 0.4 10^3/uL (0.1-1.4); ABSOLUTE NEUT (AUTO) 9.7 10^3/uL (1.7-8.2); BASOPHILS % (AUTO) 0.2 % (0-2); HEMATOCRIT 30.3 % (36.0-47.0); HEMOGLOBIN 10.4 g/dL (12.0-15.5); LYMPHOCYTES % (AUTO) 8.3 % (13-45); MEAN CORPUSCULAR HEMOGLOBIN 29.6 pg (27.0-33.4); MEAN CORPUSCULAR HGB CONC 34.5 g/dL (32.0-36.0); MEAN CORPUSCULAR VOLUME 86 fl (80-97); MONOCYTES % (AUTO) 3.9 % (3-13); PLATELET COUNT 207 10^3/uL (150-450); RED BLOOD COUNT 3.53 10^6/uL (3.72-5.28); RED CELL DISTRIBUTION WIDTH 14.5 % (11.5-14.0); SEGMENTED NEUTROPHILS % (AUTO) 87.6 % (42-78); TOTAL CELLS COUNTED % (AUTO) 100 %; WHITE BLOOD COUNT 11.1 10^3/uL (4.0-10.5)
[2019-04-29] MEDS: IPRATROPIUM/ALBUTEROL 0.5-2.5 MG/3 ML AMPUL NEB SCH ×3 (09:45→19:41)
[2019-04-29] MEDS: FLUTICASONE/VILANTEROL 200-25 MCG/DOSE IH SCH (10:00)
[2019-04-29] MEDS: ASPIRIN 81 MG TABLET, ENT COATED PO SCH (10:00)
[2019-04-29] MEDS: AMLODIPINE BESYLATE 5 MG TABLET PO SCH (10:00)
[2019-04-29] MEDS: FLUTICASONE/UMECLIDIN/VILANTER 100-62.5-25 MCG/DOSE IH SCH (10:00)
[2019-04-29] MEDS: LISINOPRIL 10 MG TABLET PO SCH (10:00)
[2019-04-29] MEDS: FAMOTIDINE 20 MG TABLET PO SCH ×2 (10:00→21:14)
[2019-04-29] MEDS: CHOLECALCIFEROL (D3) 1,000 UNIT (25 MCG) TABLET PO SCH (10:00)
[2019-04-29] MEDS: ENOXAPARIN SODIUM INJ 40 MG/0.4 ML DISP.SYRIN SUBCUT SCH (10:26)
[2019-04-29] MEDS: DOCUSATE SODIUM 100 MG/10 ML UDC PO SCH (13:11)
--- NOTE | 2019-04-29 15:50 | PDOC PROGRESS REPORT ---
Subjective Progress Note for:: 04/29/19 Subjective:: THEODORA JACKSON is a 83 year old female history past medical history of CAD, hyperlipidemia, asthma, arthritis, COPD setting to ED after fall with injury to right shoulder. Patient has history of multiple mechanical falls and has severe osteoarthritis but no definitive cause has been identified by PCP so far, stating that he was walking across the floor this morning her legs gave out and she fell to the ground landing on the right shoulder. Not sustain any other trauma, did not sustain any head trauma did not have any syncope or presyncope. Imaging ED showed anterior dislocation with displaced of the right shoulder. Orthopedic surgery consulted however they want hospitalist to admit 04/28/2019. No acute events overnight. Patient still complaining of persistent right shoulder pain. Stating that Dilaudid does not help much. Pending evaluation by orthopedic surgeon. 04/29/2019. No acute events overnight. Status post open reduction internal fi xation of the right shoulder. Resting comfortably in. No apparent distress. Denies any fever, chills, nausea, vomiting, diarrhea, constipation or any urinary symptoms. Pending placement. Reason For Visit: RIGHT SHOULDER FRACTURE Physical Exam Vital Signs: Temp Pulse Resp BP Pulse Ox 99 F 87 16 121/60 95 04/29/19 11:00 04/29/19 14:54 04/29/19 14:54 04/29/19 11:00 04/29/19 14:54 Intake & Output 04/28/19 04/29/19 04/30/19 06:59 06:59 06:59 Intake Total 835 750 817 Output Total 50 Balance 835 700 817 Weight 58.2 kg 58.2 kg General appearance: PRESENT: no acute distress, well-developed, well-nourished Head exam: PRESENT: atraumatic, normocephalic Respiratory exam: PRESENT: clear to auscultation fabián. ABSENT: rales, rhonchi, wheezes Cardiovascular exam: PRESENT: RRR. ABSENT: diastolic murmur, rubs, systolic murmur Pulses: PRESENT: normal dorsalis pedis pul GI/Abdominal exam: PRESENT: normal bowel sounds, soft. ABSENT: distended, guarding, mass, organolmegaly, rebound, tenderness Musculoskeletal exam: PRESENT: other - Right shoulder wound looks clean. Neurovascularly intact. Neurological exam: PRESENT: alert, awake, oriented to person, oriented to place, oriented to time, oriented to situation, CN II-XII grossly intact. ABSENT: motor sensory deficit Results Laboratory Results: 04/29/19 08:13 04/28/19 04:23 04/29/19 08:13 WBC 11.1 H RBC 3.53 L Hgb 10.4 L Hct 30.3 L MCV 86 MCH 29.6 MCHC 34.5 RDW 14.5 H Plt Count 207 Seg Neutrophils % 87.6 H Impressions: Cervical Spine CT 04/27/19 13:32 IMPRESSION: CHRONIC DEGENERATIVE CHANGES. NO ACUTE FINDINGS. Upper Extremity CT 04/27/19 13:34 IMPRESSION: 1. ANTERIOR DISLOCATION WITH DISPLACED COMMINUTED FRACTURE OF THE GREATER TUBEROSITY. 2. AIRSPACE DISEASE IN THE RIGHT LOWER LOBE, INCOMPLETELY IMAGED. Head CT 04/27/19 18:39 IMPRESSION: NO ACUTE INTRACRANIAL FINDINGS. EVIDENCE OF ACUTE STROKE: NO. Chest X-Ray 04/28/19 00:00 IMPRESSION: Cardiomegaly without a superimposed acute cardiopulmonary process. Fluoroscopy 04/28/19 00:00 IMPRESSION: IMAGE(S) OBTAINED DURING PROCEDURE. Shoulder X-Ray 04/28/19 00:00 IMPRESSION: IMAGE(S) OBTAINED DURING PROCEDURE. Assessment and Plan - Diagnosis (1) Shoulder fracture, right Is this a current diagnosis for this admission?: Yes Plan: Day 2 status post open reduction of anterior shoulder dislocation, osteosynthesis of the greater tuberosity fracture and rotator cuff repair. Continue PT. Continue supportive measures. Surgery following. Pending p lacement. (2) CAD (coronary artery disease) Qualifiers: Coronary Disease-Associated Artery/Lesion type: unspecified vessel or lesion type [place] vs. transplanted heart: [place] heart Associated angina: without angina Qualified Code(s): I25.10 - Atherosclerotic heart disease of [place] coronary artery without angina pectoris Is this a current diagnosis for this admission?: Yes Plan: Denies any history of CAD. 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 (3) COPD (chronic obstructive pulmonary disease) Qualifiers: COPD type: unspecified COPD Qualified Code(s): J44.9 - Chronic obstructive pulmonary disease, unspecified Is this a current diagnosis for this admission?: Yes Plan: Restart home meds. (4) Fall Qualifiers: Encounter type: initial encounter Qualified Code(s): W19.XXXA - Unspecified fall, initial encounter Is this a current diagnosis for this admission?: Yes Plan: History of recurrent mechanical falls. Stating that usually her knees give out. Head and neck CT negative for any acute abnormalities. Denies any lightheadedness, palpitation, syncope or presyncope. Denies any history of seizure. Continue fall and seizure precautions. (5) Hypertension Is this a current diagnosis for this admission?: Yes Plan: Normotensive. Euvolemic. Restart home meds. (6) Hyperlipidemia Is this a current diagnosis for this admission?: Yes Plan: Resume home meds.
[2019-04-29] MEDS: ATORVASTATIN CALCIUM 40 MG TABLET PO SCH (21:14)
[2019-04-29] MEDS: NORMAL SALINE 1000 ML 1,000 ML IV PRN (21:14)
[2019-04-30] MEDS: ONDANSETRON HCL INJ/PF 4 MG/2 ML SDV IV PRN ×2 (08:14→23:41)
[2019-04-30] MEDS: HYDROMORPHONE HCL INJ/PF 2 MG/ML AMPULE IV PRN ×2 (08:14→23:41)
[2019-04-30] MEDS: IPRATROPIUM/ALBUTEROL 0.5-2.5 MG/3 ML AMPUL NEB SCH ×3 (08:30→19:18)
[2019-04-30] MEDS: MAG HYDROX/AL HYDROX/SIMETH SUSP 30 ML UDCUP PO PRN (09:23)
[2019-04-30] MEDS: NORMAL SALINE 1000 ML 1,000 ML IV PRN ×2 (09:23→21:01)
[2019-04-30] MEDS: ASPIRIN 81 MG TABLET, ENT COATED PO SCH (09:25)
[2019-04-30] MEDS: AMLODIPINE BESYLATE 5 MG TABLET PO SCH (09:25)
[2019-04-30] MEDS: LISINOPRIL 10 MG TABLET PO SCH (09:25)
[2019-04-30] MEDS: FAMOTIDINE 20 MG TABLET PO SCH ×2 (09:25→21:01)
[2019-04-30] MEDS: CHOLECALCIFEROL (D3) 1,000 UNIT (25 MCG) TABLET PO SCH (09:25)
[2019-04-30] MEDS: ENOXAPARIN SODIUM INJ 40 MG/0.4 ML DISP.SYRIN SUBCUT SCH (09:25)
[2019-04-30] MEDS: FLUTICASONE/VILANTEROL 200-25 MCG/DOSE IH SCH (09:26)
[2019-04-30] MEDS: DOCUSATE SODIUM 100 MG/10 ML UDC PO SCH (09:27)
[2019-04-30] MEDS: FLUTICASONE/UMECLIDIN/VILANTER 100-62.5-25 MCG/DOSE IH SCH (09:27)
--- NOTE | 2019-04-30 11:25 | PDOC PROGRESS REPORT ---
Subjective Progress Note for:: 04/30/19 Subjective:: THEODORA JACKSON is a 83 year old female history past medical history of CAD, hyperlipidemia, asthma, arthritis, COPD setting to ED after fall with injury to right shoulder. Patient has history of multiple mechanical falls and has severe osteoarthritis but no definitive cause has been identified by PCP so far, stating that he was walking across the floor this morning her legs gave out and she fell to the ground landing on the right shoulder. Not sustain any other trauma, did not sustain any head trauma did not have any syncope or presyncope. Imaging ED showed anterior dislocation with displaced of the right shoulder. Orthopedic surgery consulted however they want hospitalist to admit 04/28/2019. No acute events overnight. Patient still complaining of persistent right shoulder pain. Stating that Dilaudid does not help much. Pending evaluation by orthopedic surgeon. 04/29/2019. No acute events overnight. Status post open reduction internal fi xation of the right shoulder. Resting comfortably in. No apparent distress. Denies any fever, chills, nausea, vomiting, diarrhea, constipation or any urinary symptoms. Pending placement. 04/30/2019. No acute events overnight. Right shoulder pain improved. Limited range of motion due to pain. Pending transfer to SNF. Reason For Visit: RIGHT SHOULDER FRACTURE Physical Exam Vital Signs: Temp Pulse Resp BP Pulse Ox 97.4 F 86 18 104/75 92 04/30/19 10:52 04/30/19 10:52 04/30/19 10:52 04/30/19 10:52 04/30/19 10:52 Intake & Output 04/29/19 04/30/19 05/01/19 06:59 06:59 06:59 Intake Total 1750 1154 972 Output Total 50 Balance 1700 1154 972 Weight 58.2 kg 61.3 kg General appearance: PRESENT: no acute distress, well-developed, well-nourished Head exam: PRESENT: atraumatic, normocephalic Respiratory exam: PRESENT: clear to auscultation fabián. ABSENT: rales, rhonchi, wheezes Cardiovascular exam: PRESENT: RRR. ABSENT: diastolic murmur, rubs, systolic m urmur Vascular exam: PRESENT: normal capillary refill Extremities exam: PRESENT: full ROM, other - Right shoulder wound looks clean. Limited range of motion due to pain. Neurovascular intact.. ABSENT: calf tenderness, clubbing, pedal edema Results Laboratory Results: 04/29/19 08:13 04/28/19 04:23 Impressions: Cervical Spine CT 04/27/19 13:32 IMPRESSION: CHRONIC DEGENERATIVE CHANGES. NO ACUTE FINDINGS. Upper Extremity CT 04/27/19 13:34 IMPRESSION: 1. ANTERIOR DISLOCATION WITH DISPLACED COMMINUTED FRACTURE OF THE GREATER TUBEROSITY. 2. AIRSPACE DISEASE IN THE RIGHT LOWER LOBE, INCOMPLETELY IMAGED. Head CT 04/27/19 18:39 IMPRESSION: NO ACUTE INTRACRANIAL FINDINGS. EVIDENCE OF ACUTE STROKE: NO. Chest X-Ray 04/28/19 00:00 IMPRESSION: Cardiomegaly without a superimposed acute cardiopulmonary process. Fluoroscopy 04/28/19 00:00 IMPRESSION: IMAGE(S) OBTAINED DURING PROCEDURE. Shoulder X-Ray 04/28/19 00:00 IMPRESSION: IMAGE(S) OBTAINED DURING PROCEDURE. Assessment and Plan - Diagnosis (1) Shoulder fracture, right Is this a current diagnosis for this admission?: Yes Plan: Day 3 status post open reduction of anterior shoulder dislocation, osteosynthesis of the greater tuberosity fracture and rotator cuff repair. Continue PT. Continue supportive measures. Surgery following. Pending placement. (2) CAD (coronary artery disease) Qualifiers: Coronary Disease-Associated Artery/Lesion type: unspecified vessel or lesion type [place] vs. transplanted heart: [place] heart Associated angina: without angina Qualified Code(s): I25.10 - Atherosclerotic heart disease of [place] coronary artery without angina pectoris Is this a current diagnosis for this admission?: Yes Plan: Denies any history of CAD. 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 (3) COPD (chronic obstructive pulmonary disease) Qualifiers: COPD type: unspecified COPD Qualified Code(s): J44.9 - Chronic obstructive pulmonary disease, unspecified Is this a current diagnosis for this admission?: Yes Plan: Restart home meds. (4) Fall Qualifiers: Encounter type: initial encounter Qualified Code(s): W19.XXXA - Unspecified fall, initial encounter Is this a current diagnosis for this admission?: Yes Plan: History of recurrent mechanical falls. Stating that usually her knees give out. Head and neck CT negative for any acute abnormalities. Denies any lightheadedness, palpitation, syncope or presyncope. Denies any history of seizure. Continue fall and seizure precautions. (5) Hypertension Is this a current diagnosis for this admission?: Yes Plan: Normotensive. Euvolemic. Restart home meds. (6) Hyperlipidemia Is this a current diagnosis for this admission?: Yes Plan: Resume home meds.
[2019-04-30] MEDS: OXYCODONE-ACETAMINOPHEN 5-325 MG TABLET PO PRN ×2 (13:33→17:13)
[2019-04-30] MEDS: ATORVASTATIN CALCIUM 40 MG TABLET PO SCH (21:01)
[2019-05-01] MEDS: OXYCODONE-ACETAMINOPHEN 5-325 MG TABLET PO PRN ×2 (04:46→12:50)
[2019-05-01 05:38] LABS: ABSOLUTE BASOPHILS # (AUTO) 0.1 10^3/uL (0.0-0.2); ABSOLUTE EOSINOPHILS # (AUTO) 0.6 10^3/uL (0.0-0.6); ABSOLUTE LYMPHOCYTES (AUTO) 2.2 10^3/uL (0.5-4.7); ABSOLUTE MONOCYTES (AUTO) 0.9 10^3/uL (0.1-1.4); ABSOLUTE NEUT (AUTO) 5.5 10^3/uL (1.7-8.2); BASOPHILS % (AUTO) 0.6 % (0-2); EOSINOPHILS % (AUTO) 6.8 % (0-6); HEMATOCRIT 25.7 % (36.0-47.0); HEMOGLOBIN 8.8 g/dL (12.0-15.5); LYMPHOCYTES % (AUTO) 23.2 % (13-45); MEAN CORPUSCULAR HGB CONC 34.4 g/dL (32.0-36.0); MEAN CORPUSCULAR VOLUME 87 fl (80-97); PLATELET COUNT 198 10^3/uL (150-450); RED BLOOD COUNT 2.94 10^6/uL (3.72-5.28); RED CELL DISTRIBUTION WIDTH 14.9 % (11.5-14.0); SEGMENTED NEUTROPHILS % (AUTO) 59.4 % (42-78); TOTAL CELLS COUNTED % (AUTO) 100 %; WHITE BLOOD COUNT 9.3 10^3/uL (4.0-10.5)
[2019-05-01] MEDS: IPRATROPIUM/ALBUTEROL 0.5-2.5 MG/3 ML AMPUL NEB SCH ×3 (08:43→19:46)
[2019-05-01] MEDS: LISINOPRIL 10 MG TABLET PO SCH (09:35)
[2019-05-01] MEDS: AMLODIPINE BESYLATE 5 MG TABLET PO SCH (09:35)
[2019-05-01] MEDS: FAMOTIDINE 20 MG TABLET PO SCH ×2 (09:35→21:59)
[2019-05-01] MEDS: CHOLECALCIFEROL (D3) 1,000 UNIT (25 MCG) TABLET PO SCH (09:35)
[2019-05-01] MEDS: ENOXAPARIN SODIUM INJ 40 MG/0.4 ML DISP.SYRIN SUBCUT SCH (09:35)
[2019-05-01] MEDS: ASPIRIN 81 MG TABLET, ENT COATED PO SCH (09:35)
[2019-05-01] MEDS: DOCUSATE SODIUM 100 MG/10 ML UDC PO SCH (09:35)
[2019-05-01] MEDS: FLUTICASONE/UMECLIDIN/VILANTER 100-62.5-25 MCG/DOSE IH SCH (09:36)
[2019-05-01] MEDS: FLUTICASONE/VILANTEROL 200-25 MCG/DOSE IH SCH (09:36)
[2019-05-01] MEDS: NORMAL SALINE 1000 ML 1,000 ML IV PRN (09:44)
--- NOTE | 2019-05-01 15:18 | PDOC PROGRESS REPORT ---
Subjective Progress Note for:: 05/01/19 Subjective:: THEODORA JACKSON is a 83 year old female history past medical history of CAD, hyperlipidemia, asthma, arthritis, COPD setting to ED after fall with injury to right shoulder. Patient has history of multiple mechanical falls and has severe osteoarthritis but no definitive cause has been identified by PCP so far, stating that he was walking across the floor this morning her legs gave out and she fell to the ground landing on the right shoulder. Not sustain any other trauma, did not sustain any head trauma did not have any syncope or presyncope. Imaging ED showed anterior dislocation with displaced of the right shoulder. Orthopedic surgery consulted however they want hospitalist to admit 04/28/2019. No acute events overnight. Patient still complaining of persistent right shoulder pain. Stating that Dilaudid does not help much. Pending evaluation by orthopedic surgeon. 04/29/2019. No acute events overnight. Status post open reduction internal fi xation of the right shoulder. Resting comfortably in. No apparent distress. Denies any fever, chills, nausea, vomiting, diarrhea, constipation or any urinary symptoms. Pending placement. 04/30/2019. No acute events overnight. Right shoulder pain improved. Limited range of motion due to pain. Pending transfer to SNF. 05/01/2019. No acute events overnight. Patient is endorsing improvement of right shoulder pain, still has on. As any fever, chills, nausea, vomiting, diarrhea, constipation or any urinary symptoms. Patient is pending transfer to short-term rehab. Reason For Visit: RIGHT SHOULDER FRACTURE Physical Exam Vital Signs: Temp Pulse Resp BP Pulse Ox 98.7 F 73 16 127/50 H 93 05/01/19 10:57 05/01/19 13:26 05/01/19 13:26 05/01/19 10:57 05/01/19 13:26 Intake & Output 04/30/19 05/01/19 05/02/19 06:59 06:59 06:59 Intake Total 1154 3037 1000 Output Total 1150 Balance 1154 1887 1000 Weight 61.3 kg 65.1 kg General appearance: PRESENT: no acute distress, well-developed, well-nourished Head exam: PRESENT: atraumatic, normocephalic Respiratory exam: PRESENT: clear to auscultation fabián. ABSENT: rales, rhonchi, wheezes Cardiovascular exam: PRESENT: RRR. ABSENT: diastolic murmur, rubs, systolic murmur GI/Abdominal exam: PRESENT: normal bowel sounds, soft. ABSENT: distended, guarding, mass, organolmegaly, rebound, tenderness Musculoskeletal exam: PRESENT: tenderness - Tenderness over the right shoulder. Surgical area looks clean. No discharge no erythema. Neurological exam: PRESENT: alert, awake, oriented to person, oriented to place, oriented to time, oriented to situation, CN II-XII grossly intact. ABSENT: motor sensory deficit Results Laboratory Results: 05/01/19 05:14 04/28/19 04:23 05/01/19 05:14 WBC 9.3 RBC 2.94 L Hgb 8.8 L Hct 25.7 L MCV 87 MCH 30.0 MCHC 34.4 RDW 14.9 H Plt Count 198 Seg Neutrophils % 59.4 Impressions: Cervical Spine CT 04/27/19 13:32 IMPRESSION: CHRONIC DEGENERATIVE CHANGES. NO ACUTE FINDINGS. Upper Extremity CT 04/27/19 13:34 IMPRESSION: 1. ANTERIOR DISLOCATION WITH DISPLACED COMMINUTED FRACTURE OF THE GREATER TUBEROSITY. 2. AIRSPACE DISEASE IN THE RIGHT LOWER LOBE, INCOMPLETELY IMAGED. Head CT 04/27/19 18:39 IMPRESSION: NO ACUTE INTRACRANIAL FINDINGS. EVIDENCE OF ACUTE STROKE: NO. Chest X-Ray 04/28/19 00:00 IMPRESSION: Cardiomegaly without a superimposed acute cardiopulmonary process. Fluoroscopy 04/28/19 00:00 IMPRESSION: IMAGE(S) OBTAINED DURING PROCEDURE. Shoulder X-Ray 04/28/19 00:00 IMPRESSION: IMAGE(S) OBTAINED DURING PROCEDURE. Assessment and Plan - Diagnosis (1) Shoulder fracture, right Is this a current diagnosis for this admission?: Yes Plan: Day 4 status post open reduction of anterior shoulder dislocation, osteosynthesis of the greater tuberosity fracture and rotator cuff repair. Continue PT. Continue supportive measures. Surgery following. Pending placement. (2) CAD (coronary artery disease) Qualifiers: Coronary Disease-Associated Artery/Lesion type: unspecified vessel or lesion type [place] vs. transplanted heart: [place] heart Associated angina: without angina Qualified Code(s): I25.10 - Atherosclerotic heart disease of [place] coronary artery without angina pectoris Is this a current diagnosis for this admission?: Yes Plan: Denies any history of CAD. 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 (3) COPD (chronic obstructive pulmonary disease) Qualifiers: COPD type: unspecified COPD Qualified Code(s): J44.9 - Chronic obstructive pulmonary disease, unspecified Is this a current diagnosis for this admission?: Yes Plan: Restart home meds. (4) Fall Qualifiers: Encounter type: initial encounter Qualified Code(s): W19.XXXA - Unspecified fall, initial encounter Is this a current diagnosis for this admission?: Yes Plan: History of recurrent mechanical falls. Stating that usually her knees give out. Head and neck CT negative for any acute abnormalities. Denies any lightheadedness, palpitation, syncope or presyncope. Denies any history of seizure. Continue fall and seizure precautions. PT OT recommended. Patient will be transferred to short-term rehab for continuation of PT OT. (5) Hypertension Is this a current diagnosis for this admission?: Yes Plan: Normotensive. Euvolemic. Restart home meds. (6) Hyperlipidemia Is this a current diagnosis for this admission?: Yes Plan: Resume home meds.
[2019-05-01] MEDS: ATORVASTATIN CALCIUM 40 MG TABLET PO SCH (21:59)
[2019-05-02] MEDS: OXYCODONE-ACETAMINOPHEN 5-325 MG TABLET PO PRN ×2 (01:47→16:48)
[2019-05-02] MEDS: NORMAL SALINE 1000 ML 1,000 ML IV PRN (03:09)
[2019-05-02] MEDS: IPRATROPIUM/ALBUTEROL 0.5-2.5 MG/3 ML AMPUL NEB SCH ×3 (08:28→20:00)
[2019-05-02] MEDS: LISINOPRIL 10 MG TABLET PO SCH (09:55)
[2019-05-02] MEDS: FLUTICASONE/VILANTEROL 200-25 MCG/DOSE IH SCH (09:55)
[2019-05-02] MEDS: FLUTICASONE/UMECLIDIN/VILANTER 100-62.5-25 MCG/DOSE IH SCH (09:55)
[2019-05-02] MEDS: CHOLECALCIFEROL (D3) 1,000 UNIT (25 MCG) TABLET PO SCH (09:55)
[2019-05-02] MEDS: ASPIRIN 81 MG TABLET, ENT COATED PO SCH (09:55)
[2019-05-02] MEDS: FAMOTIDINE 20 MG TABLET PO SCH ×2 (09:55→21:17)
[2019-05-02] MEDS: AMLODIPINE BESYLATE 5 MG TABLET PO SCH (09:55)
[2019-05-02] MEDS: DOCUSATE SODIUM 100 MG/10 ML UDC PO SCH (09:56)
[2019-05-02] MEDS: ENOXAPARIN SODIUM INJ 40 MG/0.4 ML DISP.SYRIN SUBCUT SCH (09:56)
[2019-05-02] MEDS ORDERED: ALBUTEROL SULFATE HFA (90 MCG/PUFF) 8 GM MDI IH PRN (12:53)
--- NOTE | 2019-05-02 15:08 | PDOC PROGRESS REPORT ---
Subjective Progress Note for:: 05/02/19 Subjective:: No adverse events overnight. Complaining of some constipation and asked for some Metamucil. She walked 600 feet with physical therapy with standby assistance and went up 1 flight of stairs with contact-guard assistance only. Reason For Visit: RIGHT SHOULDER FRACTURE Physical Exam Vital Signs: Temp Pulse Resp BP Pulse Ox 98.2 F 102 H 12 115/54 L 94 05/02/19 12:00 05/02/19 14:00 05/02/19 13:50 05/02/19 12:00 05/02/19 13:50 Intake & Output 05/01/19 05/02/19 05/03/19 06:59 06:59 06:59 Intake Total 3037 2580 858 Output Total 1150 850 400 Balance 1887 1730 458 Weight 65.1 kg 65.5 kg General appearance: PRESENT: no acute distress, well-developed, well-nourished Head exam: PRESENT: atraumatic, normocephalic Respiratory exam: PRESENT: clear to auscultation fabián. ABSENT: rales, rhonchi, wheezes Cardiovascular exam: PRESENT: RRR. ABSENT: diastolic murmur, rubs, systolic murmur GI/Abdominal exam: PRESENT: normal bowel sounds, soft. ABSENT: distended, guarding, mass, organolmegaly, rebound, tenderness Musculoskeletal exam: PRESENT: tenderness - Tenderness over the right shoulder. Surgical area looks clean. No discharge no erythema. Neurological exam: PRESENT: alert, awake, oriented to person, oriented to place, oriented to situation Results Laboratory Results: 05/01/19 05:14 04/28/19 04:23 Impressions: Cervical Spine CT 04/27/19 13:32 IMPRESSION: CHRONIC DEGENERATIVE CHANGES. NO ACUTE FINDINGS. Upper Extremity CT 04/27/19 13:34 IMPRESSION: 1. ANTERIOR DISLOCATION WITH DISPLACED COMMINUTED FRACTURE OF THE GREATER TUBEROSITY. 2. AIRSPACE DISEASE IN THE RIGHT LOWER LOBE, INCOMPLETELY IMAGED. Head CT 04/27/19 18:39 IMPRESSION: NO ACUTE INTRACRANIAL FINDINGS. EVIDENCE OF ACUTE STROKE: NO. Chest X-Ray 04/28/19 00:00 IMPRESSION: Cardiomegaly without a superimposed acute cardiopulmonary process. Fluoroscopy 04/28/19 00:00 IMPRESSION: IMAGE(S) OBTAINED DURING PROCEDURE. Shoulder X-Ray 04/28/19 00:00 IMPRESSION: IMAGE(S) OBTAINED DURING PROCEDURE. Assessment and Plan - Diagnosis (1) CAD (coronary artery disease) Qualifiers: Coronary Disease-Associated Artery/Lesion type: unspecified vessel or lesion type [place] vs. transplanted heart: [place] heart Associated angina: without angina Qualified Code(s): I25.10 - Atherosclerotic heart disease of [place] coronary artery without angina pectoris Is this a current diagnosis for this admission?: Yes Plan: Continue home meds (2) COPD (chronic obstructive pulmonary disease) Qualifiers: COPD type: unspecified COPD Qualified Code(s): J44.9 - Chronic obstructive pulmonary disease, unspecified Is this a current diagnosis for this admission?: Yes Plan: Not exacerbated (3) Closed fracture of greater tuberosity of right humerus Qualifiers: Encounter type: initial encounter Fracture alignment: displaced Qualified Code(s): S42.251A - Displaced fracture of greater tuberosity of right humerus, initial encounter for closed fracture Is this a current diagnosis for this admission?: Yes Plan: Status post open reduction and internal fixation. Activity restrictions per s urgery. The family wants her placed but given how well she did for physical therapy today I do not know if that is going to happen. The only concern would be that she lives by herself and may benefit from being in a monitored setting for a few days from a safety standpoint. (4) Hyperlipidemia Qualifiers: Hyperlipidemia type: unspecified Qualified Code(s): E78.5 - Hyperlipidemia, unspecified Is this a current diagnosis for this admission?: Yes Plan: Continue home meds (5) Hypertension Qualifiers: Hypertension type: essential hypertension Qualified Code(s): I10 - Essential (primary) hypertension Is this a current diagnosis for this admission?: Yes Plan: Continue home meds - Time Time Spent with patient: 15-24 minutes
[2019-05-02] MEDS: PSYLLIUM SEED-SF 5.85 GM PACKET PO PRN (16:44)
[2019-05-02] MEDS: ATORVASTATIN CALCIUM 40 MG TABLET PO SCH (21:17)
[2019-05-03] MEDS: IPRATROPIUM/ALBUTEROL 0.5-2.5 MG/3 ML AMPUL NEB SCH ×3 (08:53→20:23)
[2019-05-03] MEDS: ASPIRIN 81 MG TABLET, ENT COATED PO SCH (09:19)
[2019-05-03] MEDS: LISINOPRIL 10 MG TABLET PO SCH (09:19)
[2019-05-03] MEDS: FAMOTIDINE 20 MG TABLET PO SCH ×2 (09:19→21:24)
[2019-05-03] MEDS: AMLODIPINE BESYLATE 5 MG TABLET PO SCH (09:20)
[2019-05-03] MEDS: ENOXAPARIN SODIUM INJ 40 MG/0.4 ML DISP.SYRIN SUBCUT SCH (09:20)
[2019-05-03] MEDS: CHOLECALCIFEROL (D3) 1,000 UNIT (25 MCG) TABLET PO SCH (09:20)
[2019-05-03] MEDS: DOCUSATE SODIUM 100 MG/10 ML UDC PO SCH (09:21)
[2019-05-03] MEDS: FLUTICASONE/UMECLIDIN/VILANTER 100-62.5-25 MCG/DOSE IH SCH (09:21)
[2019-05-03] MEDS: FLUTICASONE/VILANTEROL 200-25 MCG/DOSE IH SCH (09:21)
[2019-05-03] MEDS: PSYLLIUM SEED-SF 5.85 GM PACKET PO PRN (09:22)
[2019-05-03] MEDS: MAGNESIUM HYDROXIDE SUSP 30 ML UDCUP PO PRN (14:26)
--- NOTE | 2019-05-03 14:41 | PDOC PROGRESS REPORT ---
Subjective Progress Note for:: 05/03/19 Subjective:: No adverse events overnight. No new complaints. Vital signs been stable. Her stay in rehab is been denied by [employer]. Reason For Visit: RIGHT SHOULDER FRACTURE Physical Exam Vital Signs: Temp Pulse Resp BP Pulse Ox 98.3 F 82 16 124/79 96 05/03/19 11:21 05/03/19 13:52 05/03/19 13:52 05/03/19 11:21 05/03/19 13:52 Intake & Output 05/02/19 05/03/19 05/04/19 06:59 06:59 06:59 Intake Total 2580 1008 717 Output Total 850 2200 1400 Balance 3570 -5500 -554 Weight 65.5 kg 59.9 kg General appearance: PRESENT: no acute distress, well-developed, well-nourished Head exam: PRESENT: atraumatic, normocephalic Respiratory exam: PRESENT: clear to auscultation fabián. ABSENT: rales, rhonchi, wheezes Cardiovascular exam: PRESENT: RRR. ABSENT: diastolic murmur, rubs, systolic murmur GI/Abdominal exam: PRESENT: normal bowel sounds, soft. ABSENT: distended, guarding, mass, organolmegaly, rebound, tenderness Musculoskeletal exam: PRESENT: tenderness - Tenderness over the right shoulder. Surgical area looks clean. No discharge no erythema. Neurological exam: PRESENT: alert, awake, oriented to person, oriented to place, oriented to situation Results Laboratory Results: 05/01/19 05:14 04/28/19 04:23 04/28/19 04:23 Blood Blood Culture - Final NO GROWTH IN 5 DAYS 04/28/19 05:07 Blood Blood Culture - Final NO GROWTH IN 5 DAYS Impressions: Cervical Spine CT 04/27/19 13:32 IMPRESSION: CHRONIC DEGENERATIVE CHANGES. NO ACUTE FINDINGS. Upper Extremity CT 04/27/19 13:34 IMPRESSION: 1. ANTERIOR DISLOCATION WITH DISPLACED COMMINUTED FRACTURE OF THE GREATER TUBEROSITY. 2. AIRSPACE DISEASE IN THE RIGHT LOWER LOBE, INCOMPLETELY IMAGED. Head CT 04/27/19 18:39 IMPRESSION: NO ACUTE INTRACRANIAL FINDINGS. EVIDENCE OF ACUTE STROKE: NO. Chest X-Ray 04/28/19 00:00 IMPRESSION: Cardiomegaly without a superimposed acute cardiopulmonary process. Fluoroscopy 04/28/19 00:00 IMPRESSION: IMAGE(S) OBTAINED DURING PROCEDURE. Shoulder X-Ray 04/28/19 00:00 IMPRESSION: IMAGE(S) OBTAINED DURING PROCEDURE. Assessment and Plan - Diagnosis (1) CAD (coronary artery disease) Qualifiers: Coronary Disease-Associated Artery/Lesion type: unspecified vessel or lesion type [place] vs. transplanted heart: [place] heart Associated angina: without angina Qualified Code(s): I25.10 - Atherosclerotic heart disease of [place] coronary artery without angina pectoris Is this a current diagnosis for this admission?: Yes Plan: Continue home meds (2) COPD (chronic obstructive pulmonary disease) Qualifiers: COPD type: unspecified COPD Qualified Code(s): J44.9 - Chronic obstructive pulmonary disease, unspecified Is this a current diagnosis for this admission?: Yes Plan: Not exacerbated (3) Closed fracture of greater tuberosity of right humerus Qualifiers: Encounter type: initial encounter Fracture alignment: displaced Qualified Code(s): S42.251A - Displaced fracture of greater tuberosity of right humerus, initial encounter for closed fracture Is this a current diagnosis for this admission?: Yes Plan: Status post open reduction and internal fixation. Activity restrictions per surgery. Her rehab stay was denied by [facility]. Were giving her daughter a bit of time to figure out how she wants to handle this. At this point the only thing we can get her insurance to cover is home health with physical therapy. Patient really just needs somebody to be with her at home for a few days until she recovers little bit better. (4) Hyperlipidemia Qualifiers: Hyperlipidemia type: unspecified Qualified Code(s): E78.5 - Hyperlipidemia, unspecified Is this a current diagnosis for this admission?: Yes Plan: Continue home meds (5) Hypertension Qualifiers: Hypertension type: essential hypertension Qualified Code(s): I10 - Essential (primary) hypertension Is this a current diagnosis for this admission?: Yes Plan: Continue home meds - Time Time Spent with patient: 15-24 minutes
[2019-05-03] MEDS: ATORVASTATIN CALCIUM 40 MG TABLET PO SCH (21:24)
[2019-05-04] MEDS: IPRATROPIUM/ALBUTEROL 0.5-2.5 MG/3 ML AMPUL NEB SCH ×3 (08:16→19:42)
[2019-05-04] MEDS: ASPIRIN 81 MG TABLET, ENT COATED PO SCH (09:52)
[2019-05-04] MEDS: LISINOPRIL 10 MG TABLET PO SCH (09:52)
[2019-05-04] MEDS: PSYLLIUM SEED-SF 5.85 GM PACKET PO PRN (09:52)
[2019-05-04] MEDS: DOCUSATE SODIUM 100 MG/10 ML UDC PO SCH (09:52)
[2019-05-04] MEDS: FAMOTIDINE 20 MG TABLET PO SCH ×2 (09:52→21:39)
[2019-05-04] MEDS: CHOLECALCIFEROL (D3) 1,000 UNIT (25 MCG) TABLET PO SCH (09:52)
[2019-05-04] MEDS: FLUTICASONE/VILANTEROL 200-25 MCG/DOSE IH SCH (09:53)
[2019-05-04] MEDS: MAGNESIUM HYDROXIDE SUSP 30 ML UDCUP PO PRN ×2 (09:53→15:53)
[2019-05-04] MEDS: AMLODIPINE BESYLATE 5 MG TABLET PO SCH (09:53)
[2019-05-04] MEDS: FLUTICASONE/UMECLIDIN/VILANTER 100-62.5-25 MCG/DOSE IH SCH (09:53)
[2019-05-04] MEDS: ENOXAPARIN SODIUM INJ 40 MG/0.4 ML DISP.SYRIN SUBCUT SCH (09:55)
[2019-05-04] MEDS ORDERED: NA PHOS,M-B/NA PHOS,DI-BA (ADULT) 133 ML ENEMA PR ONE (14:30)
--- NOTE | 2019-05-04 16:19 | PDOC PROGRESS REPORT ---
Subjective Progress Note for:: 05/04/19 Subjective:: No adverse events overnight. No new complaints. Patient wants to go home and we were going to discharge her home with home health today but the patient's daughter has appealed the discharge, and no one is really sure why. Patient is able to transfer from the bed independently to the chair and to the commode. She is able to ambulate independently and toilet herself. She is able to feed herself. Patient says that her grandson is at her house frequently and she said that he could help her with any of her ADLs if needed, primarily with getting some groceries and having some food in the kitchen. Reason For Visit: RIGHT SHOULDER FRACTURE Physical Exam Vital Signs: Temp Pulse Resp BP Pulse Ox 97.1 F 88 19 141/69 H 97 05/04/19 14:59 05/04/19 14:59 05/04/19 14:59 05/04/19 14:59 05/04/19 14:59 Intake & Output 05/03/19 05/04/19 05/05/19 06:59 06:59 06:59 Intake Total 1008 1117 Output Total 2200 4100 Balance -1192 -2983 Weight 59.9 kg 60.4 kg 60.4 kg General appearance: PRESENT: no acute distress, well-developed, well-nourished Head exam: PRESENT: atraumatic, normocephalic Respiratory exam: PRESENT: clear to auscultation fabián. ABSENT: rales, rhonchi, wheezes Cardiovascular exam: PRESENT: RRR. ABSENT: diastolic murmur, rubs, systolic murmur GI/Abdominal exam: PRESENT: normal bowel sounds, soft. ABSENT: distended, guarding, mass, organolmegaly, rebound, tenderness Musculoskeletal exam: PRESENT: tenderness - Tenderness over the right shoulder. Surgical area looks clean. No discharge no erythema. Neurological exam: PRESENT: alert, awake, oriented to person, oriented to place, oriented to situation Results Laboratory Results: 05/01/19 05:14 04/28/19 04:23 Impressions: Cervical Spine CT 04/27/19 13:32 IMPRESSION: CHRONIC DEGENERATIVE CHANGES. NO ACUTE FINDINGS. Upper Extremity CT 04/27/19 13:34 IMPRESSION: 1. ANTERIOR DISLOCATION WITH DISPLACED COMMINUTED FRACTURE OF THE GREATER TUBEROSITY. 2. AIRSPACE DISEASE IN THE RIGHT LOWER LOBE, INCOMPLETELY IMAGED. Head CT 04/27/19 18:39 IMPRESSION: NO ACUTE INTRACRANIAL FINDINGS. EVIDENCE OF ACUTE STROKE: NO. Chest X-Ray 04/28/19 00:00 IMPRESSION: Cardiomegaly without a superimposed acute cardiopulmonary process. Fluoroscopy 04/28/19 00:00 IMPRESSION: IMAGE(S) OBTAINED DURING PROCEDURE. Shoulder X-Ray 04/28/19 00:00 IMPRESSION: IMAGE(S) OBTAINED DURING PROCEDURE. Assessment and Plan - Diagnosis (1) CAD (coronary artery disease) Qualifiers: Coronary Disease-Associated Artery/Lesion type: unspecified vessel or lesion type [place] vs. transplanted heart: [place] heart Associated angina: without angina Qualified Code(s): I25.10 - Atherosclerotic heart disease of [place] coronary artery without angina pectoris Is this a current diagnosis for this admission?: Yes Plan: Continue home meds (2) COPD (chronic obstructive pulmonary disease) Qualifiers: COPD type: unspecified COPD Qualified Code(s): J44.9 - Chronic obstructive pulmonary disease, unspecified Is this a current diagnosis for this admission?: Yes Plan: Not exacerbated (3) Closed fracture of greater tuberosity of right humerus Qualifiers: Encounter type: initial encounter Fracture alignment: displaced Qualified Code(s): S42.251A - Displaced fracture of greater tuberosity of right humerus, initial encounter for closed fracture Is this a current diagnosis for this admission?: Yes Plan: Status post open reduction and internal fixation. Activity restrictions per surgery. [facility]. We were going to send her home with home health today, which is what the patient wants, but the daughter has appealed the discharge despite the fact that the patient appears fairly capable to do for herself at home with just a little bit of assistance. (4) Hyperlipidemia Qualifiers: Hyperlipidemia type: unspecified Qualified Code(s): E78.5 - Hyperlipidemia, unspecified Is this a current diagnosis for this admission?: Yes Plan: Continue home meds (5) Hypertension Qualifiers: Hypertension type: essential hypertension Qualified Code(s): I10 - Essential (primary) hypertension Is this a current diagnosis for this admission?: Yes Plan: Continue home meds - Time Time Spent with patient: 15-24 minutes
[2019-05-04] MEDS ORDERED: MAGNESIUM CITRATE 296 ML BOTTLE PO ONE (16:30)
[2019-05-04] MEDS: ATORVASTATIN CALCIUM 40 MG TABLET PO SCH (21:39)
[2019-05-04] MEDS: MAG HYDROX/AL HYDROX/SIMETH SUSP 30 ML UDCUP PO PRN (23:04)
[2019-05-05] MEDS: MAG HYDROX/AL HYDROX/SIMETH SUSP 30 ML UDCUP PO PRN (06:38)
[2019-05-05] MEDS: IPRATROPIUM/ALBUTEROL 0.5-2.5 MG/3 ML AMPUL NEB SCH ×3 (08:16→19:19)
[2019-05-05] MEDS: ONDANSETRON HCL INJ/PF 4 MG/2 ML SDV IV PRN (09:03)
[2019-05-05] MEDS: MAGNESIUM HYDROXIDE SUSP 30 ML UDCUP PO PRN (09:22)
[2019-05-05] MEDS: PSYLLIUM SEED-SF 5.85 GM PACKET PO PRN (09:23)
[2019-05-05] MEDS: AMLODIPINE BESYLATE 5 MG TABLET PO SCH (09:24)
[2019-05-05] MEDS: CHOLECALCIFEROL (D3) 1,000 UNIT (25 MCG) TABLET PO SCH (09:24)
[2019-05-05] MEDS: ASPIRIN 81 MG TABLET, ENT COATED PO SCH (09:25)
[2019-05-05] MEDS: FAMOTIDINE 20 MG TABLET PO SCH ×2 (09:25→22:41)
[2019-05-05] MEDS: ENOXAPARIN SODIUM INJ 40 MG/0.4 ML DISP.SYRIN SUBCUT SCH (09:26)
[2019-05-05] MEDS: DOCUSATE SODIUM 100 MG/10 ML UDC PO SCH (09:30)
[2019-05-05] MEDS: FLUTICASONE/VILANTEROL 200-25 MCG/DOSE IH SCH (09:31)
[2019-05-05] MEDS: LISINOPRIL 10 MG TABLET PO SCH (09:32)
[2019-05-05] MEDS: FLUTICASONE/UMECLIDIN/VILANTER 100-62.5-25 MCG/DOSE IH SCH (09:33)
--- NOTE | 2019-05-05 16:35 | PDOC PROGRESS REPORT ---
Subjective Progress Note for:: 05/05/19 Subjective:: No adverse events overnight. No new complaints. Patient is able to transfer from the bed independently to the chair and to the commode. She is able to ambulate independently and toilet herself. She is able to feed herself. Reason For Visit: RIGHT SHOULDER FRACTURE Physical Exam Vital Signs: Temp Pulse Resp BP Pulse Ox 98.9 F 95 18 119/60 96 05/05/19 15:09 05/05/19 15:09 05/05/19 15:09 05/05/19 15:09 05/05/19 15:09 Intake & Output 05/04/19 05/05/19 05/06/19 06:59 06:59 06:59 Intake Total 1117 500 510 Output Total 4100 800 Balance -2983 -300 510 Weight 60.4 kg 60.4 kg General appearance: PRESENT: no acute distress, well-developed, well-nourished Head exam: PRESENT: atraumatic, normocephalic Respiratory exam: PRESENT: clear to auscultation fabián. ABSENT: rales, rhonchi, wheezes Cardiovascular exam: PRESENT: RRR. ABSENT: diastolic murmur, rubs, systolic murmur GI/Abdominal exam: PRESENT: normal bowel sounds, soft. ABSENT: distended, guarding, mass, organolmegaly, rebound, tenderness Musculoskeletal exam: PRESENT: tenderness - Tenderness over the right shoulder. Surgical area looks clean. No discharge no erythema. Neurological exam: PRESENT: alert, awake, oriented to person, oriented to place, oriented to situation Results Laboratory Results: 05/01/19 05:14 04/28/19 04:23 Impressions: Cervical Spine CT 04/27/19 13:32 IMPRESSION: CHRONIC DEGENERATIVE CHANGES. NO ACUTE FINDINGS. Upper Extremity CT 04/27/19 13:34 IMPRESSION: 1. ANTERIOR DISLOCATION WITH DISPLACED COMMINUTED FRACTURE OF THE GREATER TUBEROSITY. 2. AIRSPACE DISEASE IN THE RIGHT LOWER LOBE, INCOMPLETELY IMAGED. Head CT 04/27/19 18:39 IMPRESSION: NO ACUTE INTRACRANIAL FINDINGS. EVIDENCE OF ACUTE STROKE: NO. Chest X-Ray 04/28/19 00:00 IMPRESSION: Cardiomegaly without a superimposed acute cardiopulmonary process. Fluoroscopy 04/28/19 00:00 IMPRESSION: IMAGE(S) OBTAINED DURING PROCEDURE. Shoulder X-Ray 04/28/19 00:00 IMPRESSION: IMAGE(S) OBTAINED DURING PROCEDURE. Assessment and Plan - Diagnosis (1) CAD (coronary artery disease) Qualifiers: Coronary Disease-Associated Artery/Lesion type: unspecified vessel or lesion type [place] vs. transplanted heart: [place] heart Associated angina: without angina Qualified Code(s): I25.10 - Atherosclerotic heart disease of [place] coronary artery without angina pectoris Is this a current diagnosis for this admission?: Yes Plan: Continue home meds (2) COPD (chronic obstructive pulmonary disease) Qualifiers: COPD type: unspecified COPD Qualified Code(s): J44.9 - Chronic obstructive pulmonary disease, unspecified Is this a current diagnosis for this admission?: Yes Plan: Not exacerbated (3) Closed fracture of greater tuberosity of right humerus Qualifiers: Encounter type: initial encounter Fracture alignment: displaced Qualified Code(s): S42.251A - Displaced fracture of greater tuberosity of right humerus, initial encounter for closed fracture Is this a current diagnosis for this admission?: Yes Plan: Status post open reduction and internal fixation. Activity restrictions per surgery. Her rehab stay was denied by [employer]. Daughter has appealed the discharge. Once the appeal is overturned we will send her home with home health. (4) Hyperlipidemia Qualifiers: Hyperlipidemia type: unspecified Qualified Code(s): E78.5 - Hyperlipidemia, unspecified Is this a current diagnosis for this admission?: Yes Plan: Continue home meds (5) Hypertension Qualifiers: Hypertension type: essential hypertension Qualified Code(s): I10 - Essential (primary) hypertension Is this a current diagnosis for this admission?: Yes Plan: Continue home meds - Time Time Spent with patient: 15-24 minutes
[2019-05-05] MEDS: ATORVASTATIN CALCIUM 40 MG TABLET PO SCH (22:42)
[2019-05-06] MEDS: IPRATROPIUM/ALBUTEROL 0.5-2.5 MG/3 ML AMPUL NEB SCH ×3 (07:42→19:24)
[2019-05-06] MEDS: FLUTICASONE/UMECLIDIN/VILANTER 100-62.5-25 MCG/DOSE IH SCH (10:50)
[2019-05-06] MEDS: DOCUSATE SODIUM 100 MG/10 ML UDC PO SCH (10:51)
[2019-05-06] MEDS: CHOLECALCIFEROL (D3) 1,000 UNIT (25 MCG) TABLET PO SCH (10:51)
[2019-05-06] MEDS: AMLODIPINE BESYLATE 5 MG TABLET PO SCH (10:51)
[2019-05-06] MEDS: LISINOPRIL 10 MG TABLET PO SCH (10:51)
[2019-05-06] MEDS: ASPIRIN 81 MG TABLET, ENT COATED PO SCH (10:51)
[2019-05-06] MEDS: FLUTICASONE/VILANTEROL 200-25 MCG/DOSE IH SCH (10:51)
[2019-05-06] MEDS: FAMOTIDINE 20 MG TABLET PO SCH ×2 (10:51→22:19)
[2019-05-06] MEDS: ONDANSETRON HCL INJ/PF 4 MG/2 ML SDV IV PRN (10:59)
[2019-05-06] MEDS: ENOXAPARIN SODIUM INJ 40 MG/0.4 ML DISP.SYRIN SUBCUT SCH (11:08)
[2019-05-06] MEDS ORDERED: ONDANSETRON 4 MG TAB.RAPDIS PO PRN (11:42)
--- NOTE | 2019-05-06 14:05 | PDOC PROGRESS REPORT ---
Subjective Progress Note for:: 05/06/19 Subjective:: No adverse events overnight. No new complaints. Patient is able to transfer from the bed independently to the chair and to the commode. She is able to ambulate independently and toilet herself. She is able to feed herself. She complains about some pain in her left knee but there is a bruise from where she fell prior to admission. She is complaining intermittently of some nausea but never appears to be uncomfortable and is drinking liquids without any problems. Reason For Visit: RIGHT SHOULDER FRACTURE Physical Exam Vital Signs: Temp Pulse Resp BP Pulse Ox 97.9 F 79 19 122/63 97 05/06/19 12:00 05/06/19 12:00 05/06/19 12:00 05/06/19 12:00 05/06/19 12:00 Intake & Output 05/05/19 05/06/19 05/07/19 06:59 06:59 06:59 Intake Total 500 710 Output Total 800 Balance -300 710 Weight 60.4 kg 60.5 kg General appearance: PRESENT: no acute distress, well-developed, well-nourished Head exam: PRESENT: atraumatic, normocephalic Respiratory exam: PRESENT: clear to auscultation fabián. ABSENT: rales, rhonchi, wheezes Cardiovascular exam: PRESENT: RRR. ABSENT: diastolic murmur, rubs, systolic murmur GI/Abdominal exam: PRESENT: normal bowel sounds, soft. ABSENT: distended, guarding, mass, organolmegaly, rebound, tenderness Musculoskeletal exam: PRESENT: tenderness - Tenderness over the right shoulder. Old bruise on left knee. Neurological exam: PRESENT: alert, awake, oriented to person, oriented to place, oriented to situation Results Laboratory Results: 05/01/19 05:14 04/28/19 04:23 Impressions: Cervical Spine CT 04/27/19 13:32 IMPRESSION: CHRONIC DEGENERATIVE CHANGES. NO ACUTE FINDINGS. Upper Extremity CT 04/27/19 13:34 IMPRESSION: 1. ANTERIOR DISLOCATION WITH DISPLACED COMMINUTED FRACTURE OF THE GREATER TUBEROSITY. 2. AIRSPACE DISEASE IN THE RIGHT LOWER LOBE, INCOMPLETELY IMAGED. Head CT 04/27/19 18:39 IMPRESSION: NO ACUTE INTRACRANIAL FINDINGS. EVIDENCE OF ACUTE STROKE: NO. Chest X-Ray 04/28/19 00:00 IMPRESSION: Cardiomegaly without a superimposed acute cardiopulmonary process. Fluoroscopy 04/28/19 00:00 IMPRESSION: IMAGE(S) OBTAINED DURING PROCEDURE. Shoulder X-Ray 04/28/19 00:00 IMPRESSION: IMAGE(S) OBTAINED DURING PROCEDURE. Assessment and Plan - Diagnosis (1) CAD (coronary artery disease) Qualifiers: Coronary Disease-Associated Artery/Lesion type: unspecified vessel or lesion type [place] vs. transplanted heart: [place] heart Associated angina: without angina Qualified Code(s): I25.10 - Atherosclerotic heart disease of [place]ary artery without angina pectoris Is this a current diagnosis for this admission?: Yes Plan: Continue home meds (2) COPD (chronic obstructive pulmonary disease) Qualifiers: COPD type: unspecified COPD Qualified Code(s): J44.9 - Chronic obstructive pulmonary disease, unspecified Is this a current diagnosis for this admission?: Yes Plan: Not exacerbated (3) Closed fracture of greater tuberosity of right humerus Qualifiers: Encounter type: initial encounter Fracture alignment: displaced Qualified Code(s): S42.251A - Displaced fracture of greater tuberosity of right humerus, initial encounter for closed fracture Is this a current diagnosis for this admission?: Yes Plan: Status post open reduction and internal fixation. Activity restrictions per surgery. Her rehab stay was denied by [employer]. Daughter has appealed the discharge. Once the appeal is overturned we will send her home with home health. (4) Hyperlipidemia Qualifiers: Hyperlipidemia type: unspecified Qualified Code(s): E78.5 - Hyperlipidemia, unspecified Is this a current diagnosis for this admission?: Yes Plan: Continue home meds (5) Hypertension Qualifiers: Hypertension type: essential hypertension Qualified Code(s): I10 - Essential (primary) hypertension Is this a current diagnosis for this admission?: Yes Plan: Continue home meds - Time Time Spent with patient: 15-24 minutes
[2019-05-06] MEDS: PSYLLIUM SEED-SF 5.85 GM PACKET PO PRN (14:19)
[2019-05-06] MEDS: SIMETHICONE 80 MG TAB.CHEW PO PRN ×2 (15:27→22:23)
[2019-05-06] MEDS: ATORVASTATIN CALCIUM 40 MG TABLET PO SCH (22:19)
[2019-05-07] MEDS: IPRATROPIUM/ALBUTEROL 0.5-2.5 MG/3 ML AMPUL NEB SCH ×2 (07:50→14:28)
[2019-05-07] MEDS: DOCUSATE SODIUM 100 MG/10 ML UDC PO SCH (10:09)
[2019-05-07] MEDS: FLUTICASONE/VILANTEROL 200-25 MCG/DOSE IH SCH (10:09)
[2019-05-07] MEDS: FLUTICASONE/UMECLIDIN/VILANTER 100-62.5-25 MCG/DOSE IH SCH (10:09)
[2019-05-07] MEDS: SIMETHICONE 80 MG TAB.CHEW PO PRN (10:10)
[2019-05-07] MEDS: PSYLLIUM SEED-SF 5.85 GM PACKET PO PRN (10:10)
[2019-05-07] MEDS: OXYCODONE-ACETAMINOPHEN 5-325 MG TABLET PO PRN ×2 (10:10→22:02)
[2019-05-07] MEDS: ENOXAPARIN SODIUM INJ 40 MG/0.4 ML DISP.SYRIN SUBCUT SCH (11:09)
[2019-05-07] MEDS: AMLODIPINE BESYLATE 5 MG TABLET PO SCH (14:09)
[2019-05-07] MEDS: ASPIRIN 81 MG TABLET, ENT COATED PO SCH (14:09)
[2019-05-07] MEDS: CHOLECALCIFEROL (D3) 1,000 UNIT (25 MCG) TABLET PO SCH (14:09)
[2019-05-07] MEDS: FAMOTIDINE 20 MG TABLET PO SCH ×2 (14:09→22:02)
[2019-05-07] MEDS: LISINOPRIL 10 MG TABLET PO SCH (14:09)
--- NOTE | 2019-05-07 15:30 | PDOC PROGRESS REPORT ---
Subjective Progress Note for:: 05/07/19 Subjective:: No adverse events overnight. No new complaints. Patient is able to transfer from the bed independently to the chair and to the commode. She is able to ambulate independently and toilet herself. She is able to feed herself. She complains about some pain in her left knee but there is a bruise from where she fell prior to admission. She is complaining intermittently of some nausea but never appears to be uncomfortable and is drinking liquids without any problems. She had a large bowel movement Wednesday and feels better now. I have made multiple attempts to try to contact her daughter. Reason For Visit: RIGHT SHOULDER FRACTURE Physical Exam Vital Signs: Temp Pulse Resp BP Pulse Ox 98.0 F 76 16 119/67 96 05/07/19 08:00 05/07/19 14:28 05/07/19 14:28 05/07/19 08:00 05/07/19 14:28 Intake & Output 05/06/19 05/07/19 05/08/19 06:59 06:59 06:59 Intake Total 710 620 Balance 710 620 Weight 60.5 kg 60.8 kg General appearance: PRESENT: no acute distress, well-developed, well-nourished Head exam: PRESENT: atraumatic, normocephalic Respiratory exam: PRESENT: clear to auscultation fabián. ABSENT: rales, rhonchi, wheezes Cardiovascular exam: PRESENT: RRR. ABSENT: diastolic murmur, rubs, systolic murmur GI/Abdominal exam: PRESENT: normal bowel sounds, soft. ABSENT: distended, guarding, mass, organolmegaly, rebound, tenderness Musculoskeletal exam: PRESENT: tenderness - Tenderness over the right shoulder. Old bruise on left knee. Neurological exam: PRESENT: alert, awake, oriented to person, oriented to place, oriented to situation Results Laboratory Results: 05/01/19 05:14 04/28/19 04:23 Impressions: Cervical Spine CT 04/27/19 13:32 IMPRESSION: CHRONIC DEGENERATIVE CHANGES. NO ACUTE FINDINGS. Upper Extremity CT 04/27/19 13:34 IMPRESSION: 1. ANTERIOR DISLOCATION WITH DISPLACED COMMINUTED FRACTURE OF THE GREATER TUBEROSITY. 2. AIRSPACE DISEASE IN THE RIGHT LOWER LOBE, INCOMPLETELY IMAGED. Head CT 04/27/19 18:39 IMPRESSION: NO ACUTE INTRACRANIAL FINDINGS. EVIDENCE OF ACUTE STROKE: NO. Chest X-Ray 04/28/19 00:00 IMPRESSION: Cardiomegaly without a superimposed acute cardiopulmonary process. Fluoroscopy 04/28/19 00:00 IMPRESSION: IMAGE(S) OBTAINED DURING PROCEDURE. Shoulder X-Ray 04/28/19 00:00 IMPRESSION: IMAGE(S) OBTAINED DURING PROCEDURE. Assessment and Plan - Diagnosis (1) CAD (coronary artery disease) Qualifiers: Coronary Disease-Associated Artery/Lesion type: unspecified vessel or lesion type [place] vs. transplanted heart: [place] heart Associated angina: without angina Qualified Code(s): I25.10 - Atherosclerotic heart disease of [place] oronary artery without angina pectoris Is this a current diagnosis for this admission?: Yes Plan: Continue home meds (2) COPD (chronic obstructive pulmonary disease) Qualifiers: COPD type: unspecified COPD Qualified Code(s): J44.9 - Chronic obstructive pulmonary disease, unspecified Is this a current diagnosis for this admission?: Yes Plan: Not exacerbated (3) Closed fracture of greater tuberosity of right humerus Qualifiers: Encounter type: initial encounter Fracture alignment: displaced Qualified Code(s): S42.251A - Displaced fracture of greater tuberosity of right humerus, initial encounter for closed fracture Is this a current diagnosis for this admission?: Yes Plan: Status post open reduction and internal fixation. Activity restrictions per al oconnor. Her rehab stay was denied by [employer]. Daughter has appealed the discharge. Once the appeal is overturned we will send her home with home health. (4) Hyperlipidemia Qualifiers: Hyperlipidemia type: unspecified Qualified Code(s): E78.5 - Hyperlipidemia, unspecified Is this a current diagnosis for this admission?: Yes Plan: Continue home meds (5) Hypertension Qualifiers: Hypertension type: essential hypertension Qualified Code(s): I10 - Essential (primary) hypertension Is this a current diagnosis for this admission?: Yes Plan: Continue home meds - Time Time Spent with patient: 15-24 minutes
[2019-05-07] MEDS ORDERED: IPRATROPIUM/ALBUTEROL 0.5-2.5 MG/3 ML AMPUL NEB PRN (17:44)
[2019-05-07] MEDS: ATORVASTATIN CALCIUM 40 MG TABLET PO SCH (22:02)
[2019-05-08] MEDS: PSYLLIUM SEED-SF 5.85 GM PACKET PO PRN (11:45)
[2019-05-08] MEDS: FAMOTIDINE 20 MG TABLET PO SCH ×2 (11:46→22:00)
[2019-05-08] MEDS: DOCUSATE SODIUM 100 MG/10 ML UDC PO SCH (11:46)
[2019-05-08] MEDS: ASPIRIN 81 MG TABLET, ENT COATED PO SCH (11:47)
[2019-05-08] MEDS: AMLODIPINE BESYLATE 5 MG TABLET PO SCH (11:47)
[2019-05-08] MEDS: LISINOPRIL 10 MG TABLET PO SCH (11:48)
[2019-05-08] MEDS: CHOLECALCIFEROL (D3) 1,000 UNIT (25 MCG) TABLET PO SCH (11:48)
[2019-05-08] MEDS: ENOXAPARIN SODIUM INJ 40 MG/0.4 ML DISP.SYRIN SUBCUT SCH (11:49)
[2019-05-08] MEDS: FLUTICASONE/VILANTEROL 200-25 MCG/DOSE IH SCH (11:49)
[2019-05-08] MEDS: FLUTICASONE/UMECLIDIN/VILANTER 100-62.5-25 MCG/DOSE IH SCH (11:49)
--- NOTE | 2019-05-08 17:32 | PDOC PROGRESS REPORT ---
Subjective Progress Note for:: 05/08/19 Subjective:: No adverse events overnight. No new complaints. Patient is able to transfer from the bed independently to the chair and to the commode. She is able to ambulate independently and toilet herself. She is able to feed herself. Her nausea has resolved. She had a large bowel movement Wednesday and feels better now. We are still awaiting a word about her Medicare appeal. Reason For Visit: RIGHT SHOULDER FRACTURE Physical Exam Vital Signs: Temp Pulse Resp BP Pulse Ox 97.9 F 86 18 139/67 H 96 05/08/19 12:00 05/08/19 12:00 05/08/19 12:00 05/08/19 12:00 05/08/19 12:00 Intake & Output 05/07/19 05/08/19 05/09/19 06:59 06:59 06:59 Intake Total 620 838 Balance 620 838 Weight 60.8 kg 60.3 kg General appearance: PRESENT: no acute distress, well-developed, well-nourished Head exam: PRESENT: atraumatic, normocephalic Respiratory exam: PRESENT: clear to auscultation fabián. ABSENT: rales, rhonchi, wheezes Cardiovascular exam: PRESENT: RRR. ABSENT: diastolic murmur, rubs, systolic murmur GI/Abdominal exam: PRESENT: normal bowel sounds, soft. ABSENT: distended, guarding, mass, organolmegaly, rebound, tenderness Musculoskeletal exam: PRESENT: tenderness - Tenderness over the right shoulder. Old bruise on left knee. Neurological exam: PRESENT: alert, awake, oriented to person, oriented to place, oriented to situation Results Laboratory Results: 05/01/19 05:14 04/28/19 04:23 Impressions: Cervical Spine CT 04/27/19 13:32 IMPRESSION: CHRONIC DEGENERATIVE CHANGES. NO ACUTE FINDINGS. Upper Extremity CT 04/27/19 13:34 IMPRESSION: 1. ANTERIOR DISLOCATION WITH DISPLACED COMMINUTED FRACTURE OF THE GREATER TUBEROSITY. 2. AIRSPACE DISEASE IN THE RIGHT LOWER LOBE, INCOMPLETELY IMAGED. Head CT 04/27/19 18:39 IMPRESSION: NO ACUTE INTRACRANIAL FINDINGS. EVIDENCE OF ACUTE STROKE: NO. Chest X-Ray 04/28/19 00:00 IMPRESSION: Cardiomegaly without a superimposed acute cardiopulmonary process. Fluoroscopy 04/28/19 00:00 IMPRESSION: IMAGE(S) OBTAINED DURING PROCEDURE. Shoulder X-Ray 04/28/19 00:00 IMPRESSION: IMAGE(S) OBTAINED DURING PROCEDURE. Assessment and Plan - Diagnosis (1) CAD (coronary artery disease) Qualifiers: Coronary Disease-Associated Artery/Lesion type: unspecified vessel or lesion type [place] vs. transplanted heart: [place] heart Associated angina: without angina Qualified Code(s): I25.10 - Atherosclerotic heart disease of [place] coronary artery without angina pectoris Is this a current diagnosis for this admission?: Yes Plan: Continue home meds (2) COPD (chronic obstructive pulmonary disease) Qualifiers: COPD type: unspecified COPD Qualified Code(s): J44.9 - Chronic obstructive pulmonary disease, unspecified Is this a current diagnosis for this admission?: Yes Plan: Not exacerbated (3) Closed fracture of greater tuberosity of right humerus Qualifiers: Encounter type: initial encounter Fracture alignment: displaced Qualified Code(s): S42.251A - Displaced fracture of greater tuberosity of right humerus, initial encounter for closed fracture Is this a current diagnosis for this admission?: Yes Plan: Status post open reduction and internal fixation. Activity restrictions per surgery. Her rehab stay was denied by [employer]. Daughter has appealed the discharge. Once the appeal is overturned we will send her home with home health. (4) Hyperlipidemia Qualifiers: Hyperlipidemia type: unspecified Qualified Code(s): E78.5 - Hyperlipidemia, unspecified Is this a current diagnosis for this admission?: Yes Plan: Continue home meds (5) Hypertension Qualifiers: Hypertension type: essential hypertension Qualified Code(s): I10 - Essential (primary) hypertension Is this a current diagnosis for this admission?: Yes Plan: Continue home meds - Time Time Spent with patient: 15-24 minutes
[2019-05-08] MEDS: ATORVASTATIN CALCIUM 40 MG TABLET PO SCH (22:00)
[2019-05-09] MEDS: PSYLLIUM SEED-SF 5.85 GM PACKET PO SCH (08:09)
[2019-05-09] MEDS: ASPIRIN 81 MG TABLET, ENT COATED PO SCH (10:47)
[2019-05-09] MEDS: ENOXAPARIN SODIUM INJ 40 MG/0.4 ML DISP.SYRIN SUBCUT SCH (10:47)
[2019-05-09] MEDS: AMLODIPINE BESYLATE 5 MG TABLET PO SCH (11:03)
[2019-05-09] MEDS: DOCUSATE SODIUM 100 MG/10 ML UDC PO SCH (11:03)
[2019-05-09] MEDS: CHOLECALCIFEROL (D3) 1,000 UNIT (25 MCG) TABLET PO SCH (11:03)
[2019-05-09] MEDS: LISINOPRIL 10 MG TABLET PO SCH (11:03)
[2019-05-09] MEDS: FAMOTIDINE 20 MG TABLET PO SCH ×2 (11:03→21:52)
[2019-05-09] MEDS: FLUTICASONE/VILANTEROL 200-25 MCG/DOSE IH SCH (11:03)
[2019-05-09] MEDS: FLUTICASONE/UMECLIDIN/VILANTER 100-62.5-25 MCG/DOSE IH SCH (11:04)
[2019-05-09 12:09] LABS: ABSOLUTE BASOPHILS # (AUTO) 0.1 10^3/uL (0.0-0.2); ABSOLUTE EOSINOPHILS # (AUTO) 0.5 10^3/uL (0.0-0.6); ABSOLUTE LYMPHOCYTES (AUTO) 1.6 10^3/uL (0.5-4.7); ABSOLUTE NEUT (AUTO) 6.9 10^3/uL (1.7-8.2); BASOPHILS % (AUTO) 0.7 % (0-2); EOSINOPHILS % (AUTO) 5.1 % (0-6); HEMOGLOBIN 10.5 g/dL (12.0-15.5); LYMPHOCYTES % (AUTO) 15.7 % (13-45); MEAN CORPUSCULAR HEMOGLOBIN 29.5 pg (27.0-33.4); MEAN CORPUSCULAR HGB CONC 33.7 g/dL (32.0-36.0); MEAN CORPUSCULAR VOLUME 88 fl (80-97); MONOCYTES % (AUTO) 9.8 % (3-13); PLATELET COUNT 363 10^3/uL (150-450); RED BLOOD COUNT 3.54 10^6/uL (3.72-5.28); RED CELL DISTRIBUTION WIDTH 14.7 % (11.5-14.0); SEGMENTED NEUTROPHILS % (AUTO) 68.7 % (42-78); TOTAL CELLS COUNTED % (AUTO) 100 %; WHITE BLOOD COUNT 10.1 10^3/uL (4.0-10.5)
[2019-05-09 12:32] LABS: ANION GAP 10 (5-19); BLOOD UREA NITROGEN 16 mg/dL (7-20); CALCIUM 9.1 mg/dL (8.4-10.2); CARBON DIOXIDE 29 mmol/L (22-30); CHLORIDE 96 mmol/L (98-107); GLUCOSE 75 mg/dL (75-110); POTASSIUM 4.2 mmol/L (3.6-5.0)
--- NOTE | 2019-05-09 14:17 | PDOC PROGRESS REPORT ---
Subjective Progress Note for:: 05/09/19 Subjective:: This is an 83-year-old female who was admitted with a right shoulder anterior dislocation with a greater tuberosity fracture. Patient underwent open reduction of the dislocation and open reduction internal fixation of the greater tuberosity fracture by orthopedics. Patient was discharged on 05/04/19 but family has appealed the discharge as they have requested patient to be discharged to a SNF. Upon encounter, patient denies acute complaints per denies chest pain or shortness of breath. Reason For Visit: RIGHT SHOULDER FRACTURE Physical Exam Vital Signs: Temp Pulse Resp BP Pulse Ox 98.0 F 83 16 141/62 H 98 05/09/19 12:00 05/09/19 12:00 05/09/19 12:00 05/09/19 12:00 05/09/19 12:00 Intake & Output 05/08/19 05/09/19 05/10/19 06:59 06:59 06:59 Intake Total 838 780 Balance 838 780 Weight 132 lb 15.02 oz 134 lb 14.766 oz General appearance: PRESENT: no acute distress, well-developed, well-nourished Head exam: PRESENT: atraumatic, normocephalic Eye exam: PRESENT: conjunctiva pink, EOMI, PERRLA. ABSENT: scleral icterus Ear exam: PRESENT: normal external ear exam Mouth exam: PRESENT: moist, tongue midline Neck exam: ABSENT: carotid bruit, JVD, lymphadenopathy, thyromegaly Respiratory exam: PRESENT: clear to auscultation fabián. ABSENT: rales, rhonchi, wheezes Cardiovascular exam: PRESENT: RRR. ABSENT: diastolic murmur, rubs, systolic murmur Pulses: PRESENT: normal dorsalis pedis pul GI/Abdominal exam: PRESENT: normal bowel sounds, soft. ABSENT: distended, guarding, mass, organolmegaly, rebound, tenderness Rectal exam: PRESENT: deferred Neurological exam: PRESENT: alert, awake, oriented to person, oriented to place, oriented to time, oriented to situation, CN II-XII grossly intact. ABSENT: motor sensory deficit Results Laboratory Results: 05/09/19 11:46 05/09/19 11:46 05/09/19 05/09/19 11:46 11:46 WBC 10.1 RBC 3.54 L Hgb 10.5 L Hct 31.0 L MCV 88 MCH 29.5 MCHC 33.7 RDW 14.7 H Plt Count 363 Seg Neutrophils % 68.7 Sodium 135.0 L Potassium 4.2 Chloride 96 L Carbon Dioxide 29 Anion Gap 10 BUN 16 Creatinine 0.61 Est GFR ( Amer) > 60 Glucose 75 Calcium 9.1 Impressions: Cervical Spine CT 04/27/19 13:32 IMPRESSION: CHRONIC DEGENERATIVE CHANGES. NO ACUTE FINDINGS. Upper Extremity CT 04/27/19 13:34 IMPRESSION: 1. ANTERIOR DISLOCATION WITH DISPLACED COMMINUTED FRACTURE OF THE GREATER TUBEROSITY. 2. AIRSPACE DISEASE IN THE RIGHT LOWER LOBE, INCOMPLETELY IMAGED. Head CT 04/27/19 18:39 IMPRESSION: NO ACUTE INTRACRANIAL FINDINGS. EVIDENCE OF ACUTE STROKE: NO. Chest X-Ray 04/28/19 00:00 IMPRESSION: Cardiomegaly without a superimposed acute cardiopulmonary process. Fluoroscopy 04/28/19 00:00 IMPRESSION: IMAGE(S) OBTAINED DURING PROCEDURE. Shoulder X-Ray 04/28/19 00:00 IMPRESSION: IMAGE(S) OBTAINED DURING PROCEDURE. Assessment and Plan - Diagnosis (1) Closed fracture of greater tuberosity of right humerus Qualifiers: Encounter type: initial encounter Fracture alignment: displaced Qualified Code(s): S42.251A - Displaced fracture of greater tuberosity of right humerus, initial encounter for closed fracture Is this a current diagnosis for this admission?: Yes Plan: Status post open reduction by ortho. (2) Dislocation of shoulder, anterior, right, closed Is this a current diagnosis for this admission?: Yes Plan: S/Popen reduction internal fixation of the greater tuberosity fracture. (3) Hypertension Qualifiers: Hypertension type: essential hypertension Qualified Code(s): I10 - Essential (primary) hypertension Is this a current diagnosis for this admission?: Yes Plan: Continue home meds. (4) CAD (coronary artery disease) Qualifiers: Coronary Disease-Associated Artery/Lesion type: unspecified vessel or lesion type [place] vs. transplanted heart: [place] heart Associated angina: without angina Qualified Code(s): I25.10 - Atherosclerotic heart disease of [place] coronary artery without angina pectoris Is this a current diagnosis for this admission?: Yes Plan: Continue home meds. (5) COPD (chronic obstructive pulmonary disease) Qualifiers: COPD type: unspecified COPD Qualified Code(s): J44.9 - Chronic obstructive pulmonary disease, unspecified Is this a current diagnosis for this admission?: Yes Plan: Not in exacerbation. - Time Time Spent with patient: 15-24 minutes
[2019-05-09] MEDS: OXYCODONE-ACETAMINOPHEN 5-325 MG TABLET PO PRN (15:11)
[2019-05-09] MEDS: ATORVASTATIN CALCIUM 40 MG TABLET PO SCH (21:52)
[2019-05-10] MEDS: PSYLLIUM SEED-SF 5.85 GM PACKET PO SCH (07:36)
[2019-05-10] MEDS: FAMOTIDINE 20 MG TABLET PO SCH ×2 (09:30→22:08)
[2019-05-10] MEDS: ASPIRIN 81 MG TABLET, ENT COATED PO SCH (09:30)
[2019-05-10] MEDS: CHOLECALCIFEROL (D3) 1,000 UNIT (25 MCG) TABLET PO SCH (09:30)
[2019-05-10] MEDS: LISINOPRIL 10 MG TABLET PO SCH (09:30)
[2019-05-10] MEDS: FLUTICASONE/VILANTEROL 200-25 MCG/DOSE IH SCH (09:30)
[2019-05-10] MEDS: DOCUSATE SODIUM 100 MG/10 ML UDC PO SCH (09:30)
[2019-05-10] MEDS: AMLODIPINE BESYLATE 5 MG TABLET PO SCH (09:30)
[2019-05-10] MEDS: FLUTICASONE/UMECLIDIN/VILANTER 100-62.5-25 MCG/DOSE IH SCH (09:32)
[2019-05-10] MEDS: ENOXAPARIN SODIUM INJ 40 MG/0.4 ML DISP.SYRIN SUBCUT SCH (09:34)
--- NOTE | 2019-05-10 12:24 | RADIOLOGY REPORT (SQ) ---
EXAM DESCRIPTION: VENOUS UNILATERAL LOWER COMPLETED DATE/TIME: 05/10/2019 12:13 pm REASON FOR STUDY: left foot pain, r/o dvt COMPARISON: None. TECHNIQUE: Dynamic and static thompson scale and color images acquired of the left leg venous system. Se lected spectral images acquired with additional compression and augmentation maneuvers. The contralat eral common femoral vein and saphenofemoral junction were also imaged. Images stored on PACS. LIMITATIONS: None. FINDINGS: COMMON FEMORAL: Normal phasicity, compression and augmentation. No visualized echogenic ma terial on thompson scale. No defects on color images. FEMORAL: Normal compression and augmentation. No visualized echogenic material on thompson scale. No defe cts on color images. POPLITEAL: Normal compression, augmentation. No visualized echogenic material on thompson scale. No defec ts on color images. CALF VESSELS: Normal compression, augmentation. No visualized echogenic material on thompson scale. No de fects on color images. GSV and SSV: Normal compression, augmentation. No visualized echogenic material on thompson scale. No def ects on color images. ANY DEEP VENOUS INSUFFICIENCY: Not evaluated. ANY EVIDENCE OF POPLITEAL CYST: No. OTHER: No other significant finding. CONTRALATERAL COMMON FEMORAL VEIN AND SAPHENOFEMORAL JUNCTION: Normal phasicity, compression and augmentation. No visualized echogenic material on thompson scale. No de fects on color images. IMPRESSION: NO EVIDENCE DVT OR SVT IN THE LEFT LEG. TECHNICAL DOCUMENTATION: JOB ID: [id number] 2010 [employer]- All Rights Reserved Reading location - IP/workstation name: [email or web address]
--- NOTE | 2019-05-10 15:39 | PDOC PROGRESS REPORT ---
Subjective Progress Note for:: 05/10/19 Subjective:: This is an 83-year-old female who was admitted with a right shoulder anterior dislocation with a greater tuberosity fracture. Patient underwent open reduction of the dislocation and open reduction internal fixation of the greater tuberosity fracture by orthopedics. 05/09: Patient was discharged on 05/04/19 but family has appealed the discharge as they have requested patient to be discharged to a SNF. Upon encounter, patient denies acute complaints per denies chest pain or shortness of breath. 05/10: No acute event overnight. Still awaiting for response to patient's appeal to discharge. This morning, she appears comfortable. She reports of left foot and leg pain. Venous Doppler was negative for any DVT. Patient has been ambulating the hallways by herself using a walker but not requiring any other form of assistance. She has refused going to an assisted living facility as well. Reason For Visit: RIGHT SHOULDER FRACTURE Physical Exam Vital Signs: Temp Pulse Resp BP Pulse Ox 98.3 F 69 16 126/65 H 96 05/10/19 12:34 05/10/19 12:34 05/10/19 12:34 05/10/19 12:34 05/10/19 12:34 Intake & Output 05/09/19 05/10/19 05/11/19 06:59 06:59 06:59 Intake Total 780 950 240 Output Total 300 Balance 780 950 -60 Weight 134 lb 14.766 oz 138 lb 7.205 oz General appearance: PRESENT: no acute distress, well-developed, well-nourished Head exam: PRESENT: atraumatic, normocephalic Eye exam: PRESENT: conjunctiva pink, EOMI, PERRLA. ABSENT: scleral icterus Ear exam: PRESENT: normal external ear exam Mouth exam: PRESENT: moist, tongue midline Neck exam: ABSENT: carotid bruit, JVD, lymphadenopathy, thyromegaly Respiratory exam: PRESENT: clear to auscultation fabián. ABSENT: rales, rhonchi, wheezes Cardiovascular exam: PRESENT: RRR. ABSENT: diastolic murmur, rubs, systolic murmur Pulses: PRESENT: normal dorsalis pedis pul GI/Abdominal exam: PRESENT: normal bowel sounds, soft. ABSENT: distended, guarding, mass, organolmegaly, rebound, tenderness Rectal exam: PRESENT: deferred Extremities exam: ABSENT: calf tenderness, clubbing, pedal edema Neurological exam: PRESENT: alert, awake, oriented to person, oriented to place, oriented to time, oriented to situation, CN II-XII grossly intact. ABSENT: motor sensory deficit Results Laboratory Results: 05/09/19 11:46 05/09/19 11:46 Impressions: Cervical Spine CT 04/27/19 13:32 IMPRESSION: CHRONIC DEGENERATIVE CHANGES. NO ACUTE FINDINGS. Upper Extremity CT 04/27/19 13:34 IMPRESSION: 1. ANTERIOR DISLOCATION WITH DISPLACED COMMINUTED FRACTURE OF THE GREATER TUBEROSITY. 2. AIRSPACE DISEASE IN THE RIGHT LOWER LOBE, INCOMPLETELY IMAGED. Head CT 04/27/19 18:39 IMPRESSION: NO ACUTE INTRACRANIAL FINDINGS. EVIDENCE OF ACUTE STROKE: NO. Chest X-Ray 04/28/19 00:00 IMPRESSION: Cardiomegaly without a superimposed acute cardiopulmonary process. Fluoroscopy 04/28/19 00:00 IMPRESSION: IMAGE(S) OBTAINED DURING PROCEDURE. Shoulder X-Ray 04/28/19 00:00 IMPRESSION: IMAGE(S) OBTAINED DURING PROCEDURE. Venous Doppler Study 05/10/19 00:00 IMPRESSION: NO EVIDENCE DVT OR SVT IN THE LEFT LEG. Assessment and Plan - Diagnosis (1) Closed fracture of greater tuberosity of right humerus Qualifiers: Encounter type: initial encounter Fracture alignment: displaced Qualified Code(s): S42.251A - Displaced fracture of greater tuberosity of right humerus, initial encounter for closed fracture Is this a current diagnosis for this admission?: Yes Plan: Status post open reduction by ortho. (2) Dislocation of shoulder, anterior, right, closed Is this a current diagnosis for this admission?: Yes Plan: S/P open reduction internal fixation of the greater tuberosity fracture. (3) Hypertension Qualifiers: Hypertension type: essential hypertension Qualified Code(s): I10 - Essential (primary) hypertension Is this a current diagnosis for this admission?: Yes Plan: Continue home meds. (4) CAD (coronary artery disease) Qualifiers: Coronary Disease-Associated Artery/Lesion type: unspecified vessel or lesion type [place] vs. transplanted heart: [place] heart Associated angina: without angina Qualified Code(s): I25.10 - Atherosclerotic heart disease of [place] coronary artery without angina pectoris Is this a current diagnosis for this admission?: Yes Plan: Continue home meds. (5) COPD (chronic obstructive pulmonary disease) Qualifiers: COPD type: unspecified COPD Qualified Code(s): J44.9 - Chronic obstructive pulmonary disease, unspecified Is this a current diagnosis for this admission?: Yes Plan: Not in exacerbation. - Time Time Spent with patient: 25-34 minutes
[2019-05-10] MEDS: ATORVASTATIN CALCIUM 40 MG TABLET PO SCH (22:08)
[2019-05-10] MEDS: OXYCODONE-ACETAMINOPHEN 5-325 MG TABLET PO PRN (22:10)
[2019-05-11] MEDS: PSYLLIUM SEED-SF 5.85 GM PACKET PO SCH (08:25)
[2019-05-11] MEDS: ENOXAPARIN SODIUM INJ 40 MG/0.4 ML DISP.SYRIN SUBCUT SCH (09:37)
[2019-05-11] MEDS: ASPIRIN 81 MG TABLET, ENT COATED PO SCH (09:37)
[2019-05-11] MEDS: FLUTICASONE/VILANTEROL 200-25 MCG/DOSE IH SCH (09:37)
[2019-05-11] MEDS: CHOLECALCIFEROL (D3) 1,000 UNIT (25 MCG) TABLET PO SCH (09:37)
[2019-05-11] MEDS: LISINOPRIL 10 MG TABLET PO SCH (09:37)
[2019-05-11] MEDS: FAMOTIDINE 20 MG TABLET PO SCH ×2 (09:37→21:38)
[2019-05-11] MEDS: FLUTICASONE/UMECLIDIN/VILANTER 100-62.5-25 MCG/DOSE IH SCH (09:37)
[2019-05-11] MEDS: AMLODIPINE BESYLATE 5 MG TABLET PO SCH (09:37)
[2019-05-11] MEDS: DOCUSATE SODIUM 100 MG/10 ML UDC PO SCH (10:02)
--- NOTE | 2019-05-11 15:13 | PDOC PROGRESS REPORT ---
Subjective Progress Note for:: 05/11/19 Subjective:: This is an 83-year-old female who was admitted with a right shoulder anterior dislocation with a greater tuberosity fracture. Patient underwent open reduction of the dislocation and open reduction internal fixation of the greater tuberosity fracture by orthopedics. 05/09: Patient was discharged on 05/04/19 but family has appealed the discharge as they have requested patient to be discharged to a SNF. Upon encounter, patient denies acute complaints per denies chest pain or shortness of breath. 05/10: No acute event overnight. Still awaiting for response to patient's appeal to discharge. This morning, she appears comfortable. She reports of left foot and leg pain. Venous Doppler was negative for any DVT. Patient has been ambulating the hallways by herself using a walker but not requiring any other form of assistance. She has refused going to an assisted living facility as well. 05/11: No acute event overnight. Patient denies acute complaints. She continues to ambulate the hallways without any acute issues. Still awaiting for results of patient's appeal to discharge. Reason For Visit: RIGHT SHOULDER FRACTURE Physical Exam Vital Signs: Temp Pulse Resp BP Pulse Ox 98.3 F 83 19 138/75 H 95 05/11/19 12:00 05/11/19 12:00 05/11/19 12:00 05/11/19 12:00 05/11/19 12:00 Intake & Output 05/10/19 05/11/19 05/12/19 06:59 06:59 06:59 Intake Total 950 740 580 Output Total 300 750 Balance 950 440 -170 Weight 138 lb 7.205 oz 132 lb 11.492 oz General appearance: PRESENT: no acute distress, well-developed, well-nourished Head exam: PRESENT: atraumatic, normocephalic Eye exam: PRESENT: conjunctiva pink, EOMI, PERRLA. ABSENT: scleral icterus Ear exam: PRESENT: normal external ear exam Mouth exam: PRESENT: moist, tongue midline Neck exam: ABSENT: carotid bruit, JVD, lymphadenopathy, thyromegaly Respiratory exam: PRESENT: clear to auscultation fabián. ABSENT: rales, rhonchi, wheezes Cardiovascular exam: PRESENT: RRR. ABSENT: diastolic murmur, rubs, systolic murmur Pulses: PRESENT: normal dorsalis pedis pul GI/Abdominal exam: PRESENT: normal bowel sounds, soft. ABSENT: distended, guarding, mass, organolmegaly, rebound, tenderness Rectal exam: PRESENT: deferred Extremities exam: ABSENT: calf tenderness, clubbing, pedal edema Neurological exam: PRESENT: alert, awake, oriented to person, oriented to place, oriented to time, oriented to situation, CN II-XII grossly intact. ABSENT: motor sensory deficit Results Laboratory Results: 05/09/19 11:46 05/09/19 11:46 Impressions: Cervical Spine CT 04/27/19 13:32 IMPRESSION: CHRONIC DEGENERATIVE CHANGES. NO ACUTE FINDINGS. Upper Extremity CT 04/27/19 13:34 IMPRESSION: 1. ANTERIOR DISLOCATION WITH DISPLACED COMMINUTED FRACTURE OF THE GREATER TUBEROSITY. 2. AIRSPACE DISEASE IN THE RIGHT LOWER LOBE, INCOMPLETELY IMAGED. Head CT 04/27/19 18:39 IMPRESSION: NO ACUTE INTRACRANIAL FINDINGS. EVIDENCE OF ACUTE STROKE: NO. Chest X-Ray 04/28/19 00:00 IMPRESSION: Cardiomegaly without a superimposed acute cardiopulmonary process. Fluoroscopy 04/28/19 00:00 IMPRESSION: IMAGE(S) OBTAINED DURING PROCEDURE. Shoulder X-Ray 04/28/19 00:00 IMPRESSION: IMAGE(S) OBTAINED DURING PROCEDURE. Venous Doppler Study 05/10/19 00:00 IMPRESSION: NO EVIDENCE DVT OR SVT IN THE LEFT LEG. Assessment and Plan - Diagnosis (1) Closed fracture of greater tuberosity of right humerus Qualifiers: Encounter type: initial encounter Fracture alignment: displaced Qualified Code(s): S42.251A - Displaced fracture of greater tuberosity of right humerus, initial encounter for closed fracture Is this a current diagnosis for this admission?: Yes Plan: Status post open reduction by ortho. (2) Dislocation of shoulder, anterior, right, closed Is this a current diagnosis for this admission?: Yes Plan: S/P open reduction internal fixation of the greater tuberosity fracture. (3) Hypertension Qualifiers: Hypertension type: essential hypertension Qualified Code(s): I10 - Essential (primary) hypertension Is this a current diagnosis for this admission?: Yes Plan: Continue home meds. (4) CAD (coronary artery disease) Qualifiers: Coronary Disease-Associated Artery/Lesion type: unspecified vessel or lesion type [place] vs. transplanted heart: [place] heart Associated angina: without angina Qualified Code(s): I25.10 - Atherosclerotic heart disease of [place] coronary artery without angina pectoris Is this a current diagnosis for this admission?: Yes Plan: Continue home meds. (5) COPD (chronic obstructive pulmonary disease) Qualifiers: COPD type: unspecified COPD Qualified Code(s): J44.9 - Chronic obstructive pulmonary disease, unspecified Is this a current diagnosis for this admission?: Yes Plan: Not in exacerbation. - Time Time Spent with patient: 15-24 minutes
[2019-05-11] MEDS: OXYCODONE-ACETAMINOPHEN 5-325 MG TABLET PO PRN (21:38)
[2019-05-11] MEDS: ATORVASTATIN CALCIUM 40 MG TABLET PO SCH (21:38)
[2019-05-12] MEDS: AMLODIPINE BESYLATE 5 MG TABLET PO SCH (11:08)
[2019-05-12] MEDS: PSYLLIUM SEED-SF 5.85 GM PACKET PO SCH (11:08)
[2019-05-12] MEDS: FAMOTIDINE 20 MG TABLET PO SCH ×2 (11:08→21:07)
[2019-05-12] MEDS: ASPIRIN 81 MG TABLET, ENT COATED PO SCH (11:09)
[2019-05-12] MEDS: ENOXAPARIN SODIUM INJ 40 MG/0.4 ML DISP.SYRIN SUBCUT SCH (11:09)
[2019-05-12] MEDS: CHOLECALCIFEROL (D3) 1,000 UNIT (25 MCG) TABLET PO SCH (11:09)
[2019-05-12] MEDS: DOCUSATE SODIUM 100 MG/10 ML UDC PO SCH (11:09)
[2019-05-12] MEDS: LISINOPRIL 10 MG TABLET PO SCH (11:10)
[2019-05-12] MEDS: FLUTICASONE/VILANTEROL 200-25 MCG/DOSE IH SCH (11:18)
[2019-05-12] MEDS: FLUTICASONE/UMECLIDIN/VILANTER 100-62.5-25 MCG/DOSE IH SCH (11:19)
--- NOTE | 2019-05-12 15:00 | PDOC PROGRESS REPORT ---
Subjective Progress Note for:: 05/12/19 Subjective:: This is an 83-year-old female who was admitted with a right shoulder anterior dislocation with a greater tuberosity fracture. Patient underwent open reduction of the dislocation and open reduction internal fixation of the greater tuberosity fracture by orthopedics. 05/09: Patient was discharged on 05/04/19 but family has appealed the discharge as they have requested patient to be discharged to a SNF. Upon encounter, patient denies acute complaints per denies chest pain or shortness of breath. 05/10: No acute event overnight. Still awaiting for response to patient's appeal to discharge. This morning, she appears comfortable. She reports of left foot and leg pain. Venous Doppler was negative for any DVT. Patient has been ambulating the hallways by herself using a walker but not requiring any other form of assistance. She has refused going to an assisted living facility as well. 05/11: No acute event overnight. Patient denies acute complaints. She continues to ambulate the hallways without any acute issues. 05/12: No acute event overnight. No acute issues. Denies acute complaints. She continues to ambulate on the hallway by herself without any issues. Still awaiting for results of patient's appeal to discharge. Reason For Visit: RIGHT SHOULDER FRACTURE Physical Exam Vital Signs: Temp Pulse Resp BP Pulse Ox 98.2 F 66 16 142/64 H 94 05/12/19 07:22 05/12/19 07:22 05/12/19 07:22 05/12/19 07:22 05/12/19 07:22 Intake & Output 05/11/19 05/12/19 05/13/19 06:59 06:59 06:59 Intake Total 740 1670 Output Total 300 750 Balance 440 920 Weight 132 lb 11.492 oz 132 lb 11.492 oz 132 lb 11.492 oz General appearance: PRESENT: no acute distress, well-developed, well-nourished Head exam: PRESENT: atraumatic, normocephalic Eye exam: PRESENT: conjunctiva pink, EOMI, PERRLA. ABSENT: scleral icterus Ear exam: PRESENT: normal external ear exam Mouth exam: PRESENT: moist, tongue midline Neck exam: ABSENT: carotid bruit, JVD, lymphadenopathy, thyromegaly Respiratory exam: PRESENT: clear to auscultation fabián. ABSENT: rales, rhonchi, wheezes Cardiovascular exam: PRESENT: RRR. ABSENT: diastolic murmur, rubs, systolic murmur Pulses: PRESENT: normal dorsalis pedis pul GI/Abdominal exam: PRESENT: normal bowel sounds, soft. ABSENT: distended, guarding, mass, organolmegaly, rebound, tenderness Rectal exam: PRESENT: deferred Extremities exam: ABSENT: calf tenderness Neurological exam: PRESENT: alert, awake, oriented to person, oriented to place, oriented to time, oriented to situation, CN II-XII grossly intact. ABSENT: motor sensory deficit Results Laboratory Results: 05/09/19 11:46 05/09/19 11:46 Impressions: Cervical Spine CT 04/27/19 13:32 IMPRESSION: CHRONIC DEGENERATIVE CHANGES. NO ACUTE FINDINGS. Upper Extremity CT 04/27/19 13:34 IMPRESSION: 1. ANTERIOR DISLOCATION WITH DISPLACED COMMINUTED FRACTURE OF THE GREATER TUBEROSITY. 2. AIRSPACE DISEASE IN THE RIGHT LOWER LOBE, INCOMPLETELY IMAGED. Head CT 04/27/19 18:39 IMPRESSION: NO ACUTE INTRACRANIAL FINDINGS. EVIDENCE OF ACUTE STROKE: NO. Chest X-Ray 04/28/19 00:00 IMPRESSION: Cardiomegaly without a superimposed acute cardiopulmonary process. Fluoroscopy 04/28/19 00:00 IMPRESSION: IMAGE(S) OBTAINED DURING PROCEDURE. Shoulder X-Ray 04/28/19 00:00 IMPRESSION: IMAGE(S) OBTAINED DURING PROCEDURE. Venous Doppler Study 05/10/19 00:00 IMPRESSION: NO EVIDENCE DVT OR SVT IN THE LEFT LEG. Assessment and Plan - Diagnosis (1) Closed fracture of greater tuberosity of right humerus Qualifiers: Encounter type: initial encounter Fracture alignment: displaced Qualified Code(s): S42.251A - Displaced fracture of greater tuberosity of right humerus, initial encounter for closed fracture Is this a current diagnosis for this admission?: Yes Plan: Status post open reduction by ortho. (2) Dislocation of shoulder, anterior, right, closed Is this a current diagnosis for this admission?: Yes Plan: S/P open reduction internal fixation of the greater tuberosity fracture. (3) Hypertension Qualifiers: Hypertension type: essential hypertension Qualified Code(s): I10 - Essential (primary) hypertension Is this a current diagnosis for this admission?: Yes Plan: Continue home meds. (4) CAD (coronary artery disease) Qualifiers: Coronary Disease-Associated Artery/Lesion type: unspecified vessel or lesion type [place] vs. transplanted heart: [place] heart Associated angina: without angina Qualified Code(s): I25.10 - Atherosclerotic heart disease of [place] cor onary artery without angina pectoris Is this a current diagnosis for this admission?: Yes Plan: Continue home meds. (5) COPD (chronic obstructive pulmonary disease) Qualifiers: COPD type: unspecified COPD Qualified Code(s): J44.9 - Chronic obstructive pulmonary disease, unspecified Is this a current diagnosis for this admission?: Yes Plan: Not in exacerbation. - Time Time Spent with patient: 15-24 minutes
[2019-05-12] MEDS: ATORVASTATIN CALCIUM 40 MG TABLET PO SCH (21:07)
[2019-05-12] MEDS: OXYCODONE-ACETAMINOPHEN 5-325 MG TABLET PO PRN (21:26)
[2019-05-13] MEDS: PSYLLIUM SEED-SF 5.85 GM PACKET PO SCH (08:25)
[2019-05-13] MEDS: OXYCODONE-ACETAMINOPHEN 5-325 MG TABLET PO PRN ×2 (10:41→23:39)
[2019-05-13] MEDS: FAMOTIDINE 20 MG TABLET PO SCH ×2 (10:42→21:16)
[2019-05-13] MEDS: AMLODIPINE BESYLATE 5 MG TABLET PO SCH (10:42)
[2019-05-13] MEDS: LISINOPRIL 10 MG TABLET PO SCH (10:42)
[2019-05-13] MEDS: ASPIRIN 81 MG TABLET, ENT COATED PO SCH (10:42)
[2019-05-13] MEDS: DOCUSATE SODIUM 100 MG/10 ML UDC PO SCH (10:44)
[2019-05-13] MEDS: ENOXAPARIN SODIUM INJ 40 MG/0.4 ML DISP.SYRIN SUBCUT SCH (10:44)
[2019-05-13] MEDS: FLUTICASONE/UMECLIDIN/VILANTER 100-62.5-25 MCG/DOSE IH SCH (10:47)
[2019-05-13] MEDS: CHOLECALCIFEROL (D3) 1,000 UNIT (25 MCG) TABLET PO SCH (10:47)
[2019-05-13] MEDS: FLUTICASONE/VILANTEROL 200-25 MCG/DOSE IH SCH (10:47)
--- NOTE | 2019-05-13 14:42 | PDOC PROGRESS REPORT ---
Subjective Progress Note for:: 05/13/19 Subjective:: This is an 83-year-old female who was admitted with a right shoulder anterior dislocation with a greater tuberosity fracture. Patient underwent open reduction of the dislocation and open reduction internal fixation of the greater tuberosity fracture by orthopedics. 05/09: Patient was discharged on 05/04/19 but family has appealed the discharge as they have requested patient to be discharged to a SNF. Upon encounter, patient denies acute complaints per denies chest pain or shortness of breath. 05/10: No acute event overnight. Still awaiting for response to patient's appeal to discharge. This morning, she appears comfortable. She reports of left foot and leg pain. Venous Doppler was negative for any DVT. Patient has been ambulating the hallways by herself using a walker but not requiring any other form of assistance. She has refused going to an assisted living facility as well. 05/11: No acute event overnight. Patient denies acute complaints. She continues to ambulate the hallways without any acute issues. 05/12: No acute event overnight. No acute issues. Denies acute complaints. She continues to ambulate on the hallway by herself without any issues. : No acute issues. Denies acute complaints. Still awaiting for results of patient's appeal to discharge. Reason For Visit: RIGHT SHOULDER FRACTURE Physical Exam Vital Signs: Temp Pulse Resp BP Pulse Ox 98.7 F 64 18 122/55 L 96 05/13/19 12:00 05/13/19 12:00 05/13/19 12:00 05/13/19 12:00 05/13/19 12:00 Intake & Output 05/12/19 05/13/19 05/14/19 06:59 06:59 06:59 Intake Total 1670 240 Output Total 750 Balance 920 240 Weight 132 lb 11.492 oz 128 lb 1.417 oz General appearance: PRESENT: no acute distress, well-developed, well-nourished Head exam: PRESENT: atraumatic, normocephalic Eye exam: PRESENT: conjunctiva pink, EOMI, PERRLA. ABSENT: scleral icterus Ear exam: PRESENT: normal external ear exam Mouth exam: PRESENT: moist, tongue midline Neck exam: ABSENT: carotid bruit, JVD, lymphadenopathy, thyromegaly Respiratory exam: PRESENT: clear to auscultation fabián. ABSENT: rales, rhonchi, wheezes Cardiovascular exam: PRESENT: RRR. ABSENT: diastolic murmur, rubs, systolic murmur Pulses: PRESENT: normal dorsalis pedis pul GI/Abdominal exam: PRESENT: normal bowel sounds, soft. ABSENT: distended, guarding, mass, organolmegaly, rebound, tenderness Rectal exam: PRESENT: deferred Extremities exam: ABSENT: calf tenderness Neurological exam: PRESENT: alert, awake, oriented to person, oriented to place, oriented to time, oriented to situation, CN II-XII grossly intact. ABSENT: motor sensory deficit Results Laboratory Results: 05/09/19 11:46 05/09/19 11:46 Impressions: Cervical Spine CT 04/27/19 13:32 IMPRESSION: CHRONIC DEGENERATIVE CHANGES. NO ACUTE FINDINGS. Upper Extremity CT 04/27/19 13:34 IMPRESSION: 1. ANTERIOR DISLOCATION WITH DISPLACED COMMINUTED FRACTURE OF THE GREATER TUBEROSITY. 2. AIRSPACE DISEASE IN THE RIGHT LOWER LOBE, INCOMPLETELY IMAGED. Head CT 04/27/19 18:39 IMPRESSION: NO ACUTE INTRACRANIAL FINDINGS. EVIDENCE OF ACUTE STROKE: NO. Chest X-Ray 04/28/19 00:00 IMPRESSION: Cardiomegaly without a superimposed acute cardiopulmonary process. Fluoroscopy 04/28/19 00:00 IMPRESSION: IMAGE(S) OBTAINED DURING PROCEDURE. Shoulder X-Ray 04/28/19 00:00 IMPRESSION: IMAGE(S) OBTAINED DURING PROCEDURE. Venous Doppler Study 05/10/19 00:00 IMPRESSION: NO EVIDENCE DVT OR SVT IN THE LEFT LEG. Assessment and Plan - Diagnosis (1) Closed fracture of greater tuberosity of right humerus Qualifiers: Encounter type: initial encounter Fracture alignment: displaced Qualified Code(s): S42.251A - Displaced fracture of greater tuberosity of right humerus, initial encounter for closed fracture Is this a current diagnosis for this admission?: Yes Plan: Status post open reduction by ortho. (2) Dislocation of shoulder, anterior, right, closed Is this a current diagnosis for this admission?: Yes Plan: S/P open reduction internal fixation of the greater tuberosity fracture. (3) Hypertension Qualifiers: Hypertension type: essential hypertension Qualified Code(s): I10 - Essential (primary) hypertension Is this a current diagnosis for this admission?: Yes Plan: Continue home meds. (4) CAD (coronary artery disease) Qualifiers: Coronary Disease-Associated Artery/Lesion type: unspecified vessel or lesion type [place] vs. transplanted heart: [place] heart Associated angina: without angina Qualified Code(s): I25.10 - Atherosclerotic heart disease of [place] coronary artery without angina pectoris Is this a current diagnosis for this admission?: Yes Plan: Continue home meds. (5) COPD (chronic obstructive pulmonary disease) Qualifiers: COPD type: unspecified COPD Qualified Code(s): J44.9 - Chronic obstructive pulmonary disease, unspecified Is this a current diagnosis for this admission?: Yes Plan: Not in exacerbation. - Time Time Spent with patient: 25-34 minutes
[2019-05-13] MEDS: ATORVASTATIN CALCIUM 40 MG TABLET PO SCH (21:16)
[2019-05-14] MEDS: PSYLLIUM SEED-SF 5.85 GM PACKET PO SCH (07:31)
[2019-05-14] MEDS: CHOLECALCIFEROL (D3) 1,000 UNIT (25 MCG) TABLET PO SCH (09:50)
[2019-05-14] MEDS: LISINOPRIL 10 MG TABLET PO SCH (09:50)
[2019-05-14] MEDS: AMLODIPINE BESYLATE 5 MG TABLET PO SCH (09:51)
[2019-05-14] MEDS: FAMOTIDINE 20 MG TABLET PO SCH ×2 (09:51→21:17)
[2019-05-14] MEDS: ASPIRIN 81 MG TABLET, ENT COATED PO SCH (09:51)
[2019-05-14] MEDS: DOCUSATE SODIUM 100 MG CAPSULE PO SCH (09:51)
[2019-05-14] MEDS: ENOXAPARIN SODIUM INJ 40 MG/0.4 ML DISP.SYRIN SUBCUT SCH (09:52)
[2019-05-14] MEDS: FLUTICASONE/VILANTEROL 200-25 MCG/DOSE IH SCH (09:53)
[2019-05-14] MEDS: FLUTICASONE/UMECLIDIN/VILANTER 100-62.5-25 MCG/DOSE IH SCH (09:53)
--- NOTE | 2019-05-14 14:19 | PDOC PROGRESS REPORT ---
Subjective Progress Note for:: 05/14/19 Subjective:: This is an 83-year-old female who was admitted with a right shoulder anterior dislocation with a greater tuberosity fracture. Patient underwent open reduction of the dislocation and open reduction internal fixation of the greater tuberosity fracture by orthopedics. 05/09: Patient was discharged on 05/04/19 but family has appealed the discharge as they have requested patient to be discharged to a SNF. Upon encounter, patient denies acute complaints per denies chest pain or shortness of breath. 05/10: No acute event overnight. Still awaiting for response to patient's appeal to discharge. This morning, she appears comfortable. She reports of left foot and leg pain. Venous Doppler was negative for any DVT. Patient has been ambulating the hallways by herself using a walker but not requiring any other form of assistance. She has refused going to an assisted living facility as well. 05/11: No acute event overnight. Patient denies acute complaints. She continues to ambulate the hallways without any acute issues. 05/12: No acute event overnight. No acute issues. Denies acute complaints. She continues to ambulate on the hallway by herself without any issues. : No acute issues. Denies acute complaints. 05/13: No acute issues. Denies acute complaints. Patient is at baseline. Still awaiting for results of patient's and family's appeal to discharge. Reason For Visit: RIGHT SHOULDER FRACTURE Physical Exam Vital Signs: Temp Pulse Resp BP Pulse Ox 98.5 F 62 18 107/56 L 97 05/14/19 12:00 05/14/19 12:00 05/14/19 12:00 05/14/19 12:05/14/19 12:00 Intake & Output 05/13/19 05/14/19 05/15/19 06:59 06:59 06:59 Intake Total 240 1180 500 Balance 240 1180 500 Weight 128 lb 1.417 oz 130 lb 15.273 oz General appearance: PRESENT: no acute distress, well-developed, well-nourished Head exam: PRESENT: atraumatic, normocephalic Eye exam: PRESENT: conjunctiva pink, EOMI, PERRLA. ABSENT: scleral icterus Ear exam: PRESENT: normal external ear exam Mouth exam: PRESENT: moist, tongue midline Neck exam: ABSENT: carotid bruit, JVD, lymphadenopathy, thyromegaly Respiratory exam: PRESENT: clear to auscultation fabián. ABSENT: rales, rhonchi, wheezes Cardiovascular exam: PRESENT: RRR. ABSENT: diastolic murmur, rubs, systolic murmur Pulses: PRESENT: normal dorsalis pedis pul GI/Abdominal exam: PRESENT: normal bowel sounds, soft. ABSENT: distended, guarding, mass, organolmegaly, rebound, tenderness Rectal exam: PRESENT: deferred Extremities exam: ABSENT: calf tenderness Neurological exam: PRESENT: alert, awake, oriented to person, oriented to place, oriented to time, oriented to situation, CN II-XII grossly intact. ABSENT: motor sensory deficit Results Laboratory Results: 05/09/19 11:46 05/09/19 11:46 Impressions: Cervical Spine CT 04/27/19 13:32 IMPRESSION: CHRONIC DEGENERATIVE CHANGES. NO ACUTE FINDINGS. Upper Extremity CT 04/27/19 13:34 IMPRESSION: 1. ANTERIOR DISLOCATION WITH DISPLACED COMMINUTED FRACTURE OF THE GREATER TUBEROSITY. 2. AIRSPACE DISEASE IN THE RIGHT LOWER LOBE, INCOMPLETELY IMAGED. Head CT 04/27/19 18:39 IMPRESSION: NO ACUTE INTRACRANIAL FINDINGS. EVIDENCE OF ACUTE STROKE: NO. Chest X-Ray 04/28/19 00:00 IMPRESSION: Cardiomegaly without a superimposed acute cardiopulmonary process. Fluoroscopy 04/28/19 00:00 IMPRESSION: IMAGE(S) OBTAINED DURING PROCEDURE. Shoulder X-Ray 04/28/19 00:00 IMPRESSION: IMAGE(S) OBTAINED DURING PROCEDURE. Venous Doppler Study 05/10/19 00:00 IMPRESSION: NO EVIDENCE DVT OR SVT IN THE LEFT LEG. Assessment and Plan - Diagnosis (1) Closed fracture of greater tuberosity of right humerus Qualifiers: Encounter type: initial encounter Fracture alignment: displaced Qualified Code(s): S42.251A - Displaced fracture of greater tuberosity of right humerus, initial encounter for closed fracture Is this a current diagnosis for this admission?: Yes Plan: Status post open reduction by ortho. (2) Dislocation of shoulder, anterior, right, closed Is this a current diagnosis for this admission?: Yes Plan: S/P open reduction internal fixation of the greater tuberosity fracture. (3) Hypertension Qualifiers: Hypertension type: essential hypertension Qualified Code(s): I10 - Essential (primary) hypertension Is this a current diagnosis for this admission?: Yes Plan: Continue home meds. (4) CAD (coronary artery disease) Qualifiers: Coronary Disease-Associated Artery/Lesion type: unspecified vessel or lesion type [place] vs. transplanted heart: [place] heart Associated angina: without angina Qualified Code(s): I25.10 - Atherosclerotic heart disease of [place] coronary artery without angina pectoris Is this a current diagnosis for this admission?: Yes Plan: Continue home meds. (5) COPD (chronic obstructive pulmonary disease) Qualifiers: COPD type: unspecified COPD Qualified Code(s): J44.9 - Chronic obstructive pulmonary disease, unspecified Is this a current diagnosis for this admission?: Yes Plan: Not in exacerbation. - Time Time Spent with patient: 15-24 minutes
[2019-05-14] MEDS: OXYCODONE-ACETAMINOPHEN 5-325 MG TABLET PO PRN (18:47)
[2019-05-14] MEDS: ATORVASTATIN CALCIUM 40 MG TABLET PO SCH (21:17)
[2019-05-15] MEDS: PSYLLIUM SEED-SF 5.85 GM PACKET PO SCH (08:21)
[2019-05-15] MEDS: FLUTICASONE/UMECLIDIN/VILANTER 100-62.5-25 MCG/DOSE IH SCH (09:51)
[2019-05-15] MEDS: ENOXAPARIN SODIUM INJ 40 MG/0.4 ML DISP.SYRIN SUBCUT SCH (09:51)
[2019-05-15] MEDS: FLUTICASONE/VILANTEROL 200-25 MCG/DOSE IH SCH (09:51)
[2019-05-15] MEDS: FAMOTIDINE 20 MG TABLET PO SCH ×2 (09:52→22:38)
[2019-05-15] MEDS: DOCUSATE SODIUM 100 MG CAPSULE PO SCH (09:52)
[2019-05-15] MEDS: LISINOPRIL 10 MG TABLET PO SCH (09:52)
[2019-05-15] MEDS: ASPIRIN 81 MG TABLET, ENT COATED PO SCH (09:52)
[2019-05-15] MEDS: AMLODIPINE BESYLATE 5 MG TABLET PO SCH (09:52)
[2019-05-15] MEDS: CHOLECALCIFEROL (D3) 1,000 UNIT (25 MCG) TABLET PO SCH (09:52)
--- NOTE | 2019-05-15 13:23 | PDOC PROGRESS REPORT ---
Subjective Progress Note for:: 05/15/19 Subjective:: This is an 83-year-old female who was admitted with a right shoulder anterior dislocation with a greater tuberosity fracture. Patient underwent open reduction of the dislocation and open reduction internal fixation of the greater tuberosity fracture by orthopedics. 05/09: Patient was discharged on 05/04/19 but family has appealed the discharge as they have requested patient to be discharged to a SNF. Upon encounter, patient denies acute complaints per denies chest pain or shortness of breath. 05/10: No acute event overnight. Still awaiting for response to patient's appeal to discharge. This morning, she appears comfortable. She reports of left foot and leg pain. Venous Doppler was negative for any DVT. Patient has been ambulating the hallways by herself using a walker but not requiring any other form of assistance. She has refused going to an assisted living facility as well. 05/11: No acute event overnight. Patient denies acute complaints. She continues to ambulate the hallways without any acute issues. 05/12: No acute event overnight. No acute issues. Denies acute complaints. She continues to ambulate on the hallway by herself without any issues. : No acute issues. Denies acute complaints. 05/13: No acute issues. Denies acute complaints. Patient is at baseline. 05/14: No acute event overnight. Denies acute complaints. She continues to ambulate well in the hallways. Still awaiting for results/adjudication of patient's and family's appeal to discharge. Unfortunately, this has been taking some time. Rediscussed with Dr. Garcia, orthopedics today to see if patient can get off the arm sling as it has been 2 weeks postop. Patient will need to be kept on the arm sling for 6 weeks post ORIF per orthopedics. Reason For Visit: RIGHT SHOULDER FRACTURE Physical Exam Vital Signs: Temp Pulse Resp BP Pulse Ox 97.9 F 74 18 122/55 L 97 05/15/19 12:00 05/15/19 12:00 05/15/19 12:00 05/15/19 12:05/15/19 12:00 Intake & Output 05/14/19 05/15/19 05/16/19 06:59 06:59 06:59 Intake Total 1180 740 Balance 1180 740 Weight 130 lb 15.273 oz 131 lb 2.801 oz Results Laboratory Results: 05/09/19 11:46 05/09/19 11:46 Impressions: Cervical Spine CT 04/27/19 13:32 IMPRESSION: CHRONIC DEGENERATIVE CHANGES. NO ACUTE FINDINGS. Upper Extremity CT 04/27/19 13:34 IMPRESSION: 1. ANTERIOR DISLOCATION WITH DISPLACED COMMINUTED FRACTURE OF THE GREATER TUBEROSITY. 2. AIRSPACE DISEASE IN THE RIGHT LOWER LOBE, INCOMPLETELY IMAGED. Head CT 04/27/19 18:39 IMPRESSION: NO ACUTE INTRACRANIAL FINDINGS. EVIDENCE OF ACUTE STROKE: NO. Chest X-Ray 04/28/19 00:00 IMPRESSION: Cardiomegaly without a superimposed acute cardiopulmonary process. Fluoroscopy 04/28/19 00:00 IMPRESSION: IMAGE(S) OBTAINED DURING PROCEDURE. Shoulder X-Ray 04/28/19 00:00 IMPRESSION: IMAGE(S) OBTAINED DURING PROCEDURE. Venous Doppler Study 05/10/19 00:00 IMPRESSION: NO EVIDENCE DVT OR SVT IN THE LEFT LEG. Assessment and Plan - Diagnosis (1) Closed fracture of greater tuberosity of right humerus Qualifiers: Encounter type: initial encounter Fracture alignment: displaced Qualified Code(s): S42.251A - Displaced fracture of greater tuberosity of right humerus, initial encounter for closed fracture Is this a current diagnosis for this admission?: Yes (2) Dislocation of shoulder, anterior, right, closed Is this a current diagnosis for this admission?: Yes (3) Hypertension Qualifiers: Hypertension type: essential hypertension Qualified Code(s): I10 - Essential (primary) hypertension Is this a current diagnosis for this admission?: Yes (4) CAD (coronary artery disease) Qualifiers: Coronary Disease-Associated Artery/Lesion type: unspecified vessel or lesion type [place] vs. transplanted heart: [place] heart Associated angina: without angina Qualified Code(s): I25.10 - Atherosclerotic heart disease of [place] coronary artery without angina pectoris Is this a current diagnosis for this admission?: Yes (5) COPD (chronic obstructive pulmonary disease) Qualifiers: COPD type: unspecified COPD Qualified Code(s): J44.9 - Chronic obstructive pulmonary disease, unspecified Is this a current diagnosis for this admission?: Yes
[2019-05-15] MEDS: ATORVASTATIN CALCIUM 40 MG TABLET PO SCH (22:37)
[2019-05-15] MEDS: OXYCODONE-ACETAMINOPHEN 5-325 MG TABLET PO PRN (22:38)
[2019-05-16] MEDS: PSYLLIUM SEED-SF 5.85 GM PACKET PO SCH (08:27)
[2019-05-16] MEDS: LISINOPRIL 10 MG TABLET PO SCH (09:47)
[2019-05-16] MEDS: DOCUSATE SODIUM 100 MG CAPSULE PO SCH (09:47)
[2019-05-16] MEDS: FAMOTIDINE 20 MG TABLET PO SCH ×2 (09:47→20:59)
[2019-05-16] MEDS: FLUTICASONE/UMECLIDIN/VILANTER 100-62.5-25 MCG/DOSE IH SCH (09:47)
[2019-05-16] MEDS: AMLODIPINE BESYLATE 5 MG TABLET PO SCH (09:47)
[2019-05-16] MEDS: ASPIRIN 81 MG TABLET, ENT COATED PO SCH (09:47)
[2019-05-16] MEDS: FLUTICASONE/VILANTEROL 200-25 MCG/DOSE IH SCH (09:47)
[2019-05-16] MEDS: ENOXAPARIN SODIUM INJ 40 MG/0.4 ML DISP.SYRIN SUBCUT SCH (09:47)
[2019-05-16] MEDS: CHOLECALCIFEROL (D3) 1,000 UNIT (25 MCG) TABLET PO SCH (09:47)
--- NOTE | 2019-05-16 15:19 | PDOC PROGRESS REPORT ---
Subjective Progress Note for:: 05/16/19 Subjective:: Patient continues to say she is unable to manage at home by herself. She is awaiting disposition Reason For Visit: RIGHT SHOULDER FRACTURE Physical Exam Vital Signs: Temp Pulse Resp BP Pulse Ox 98.3 F 67 16 120/75 96 05/16/19 11:09 05/16/19 11:09 05/16/19 11:09 05/16/19 11:09 05/16/19 11:09 Intake & Output 05/15/19 05/16/19 05/17/19 06:59 06:59 06:59 Intake Total 740 760 480 Balance 740 760 480 Weight 59.5 kg 58.5 kg General appearance: PRESENT: no acute distress Neck exam: PRESENT: full ROM. ABSENT: JVD Respiratory exam: PRESENT: clear to auscultation fabián Rectal exam: PRESENT: deferred Extremities exam: PRESENT: other - R shoulder in sling Musculoskeletal exam: PRESENT: ambulatory Neurological exam: PRESENT: alert, awake, oriented to person, oriented to place, oriented to time, oriented to situation Psychiatric exam: PRESENT: appropriate affect Results Laboratory Results: 05/09/19 11:46 05/09/19 11:46 Impressions: Cervical Spine CT 04/27/19 13:32 IMPRESSION: CHRONIC DEGENERATIVE CHANGES. NO ACUTE FINDINGS. Upper Extremity CT 04/27/19 13:34 IMPRESSION: 1. ANTERIOR DISLOCATION WITH DISPLACED COMMINUTED FRACTURE OF THE GREATER TUBEROSITY. 2. AIRSPACE DISEASE IN THE RIGHT LOWER LOBE, INCOMPLETELY IMAGED. Head CT 04/27/19 18:39 IMPRESSION: NO ACUTE INTRACRANIAL FINDINGS. EVIDENCE OF ACUTE STROKE: NO. Chest X-Ray 04/28/19 00:00 IMPRESSION: Cardiomegaly without a superimposed acute cardiopulmonary process. Fluoroscopy 04/28/19 00:00 IMPRESSION: IMAGE(S) OBTAINED DURING PROCEDURE. Shoulder X-Ray 04/28/19 00:00 IMPRESSION: IMAGE(S) OBTAINED DURING PROCEDURE. Venous Doppler Study 05/10/19 00:00 IMPRESSION: NO EVIDENCE DVT OR SVT IN THE LEFT LEG. Assessment and Plan - Diagnosis (1) Closed fracture of greater tuberosity of right humerus Qualifiers: Encounter type: subsequent encounter Fracture alignment: displaced Is this a current diagnosis for this admission?: Yes Plan: Status post open reduction (2) Fall Qualifiers: Encounter type: subsequent encounter Qualified Code(s): W19.XXXD - Unspecified fall, subsequent encounter Is this a current diagnosis for this admission?: Yes Plan: History of recurrent mechanical falls. Awaiting safe discharge (3) Hypertension Qualifiers: Hypertension type: essential hypertension Qualified Code(s): I10 - Essential (primary) hypertension Is this a current diagnosis for this admission?: Yes Plan: Continue home meds and adjust as needed - Plan Summary Summary: 05/14: No acute event overnight. Denies acute complaints. She continues to ambulate well in the hallways. Still awaiting for results/adjudication of patient's and family's appeal to discharge. Unfortunately, this has been taking some time. Rediscussed with Dr. Garcia, orthopedics today to see if patient can get off the arm sling as it has been 2 weeks postop. Patient will need to be kept on the arm sling for 6 weeks post ORIF per orthopedics. 05/15 she is medically stable for discharge currently awaiting disposition
[2019-05-16] MEDS: OXYCODONE-ACETAMINOPHEN 5-325 MG TABLET PO PRN (20:58)
[2019-05-16] MEDS: ATORVASTATIN CALCIUM 40 MG TABLET PO SCH (20:59)
[2019-05-17] MEDS: ENOXAPARIN SODIUM INJ 40 MG/0.4 ML DISP.SYRIN SUBCUT SCH (09:08)
[2019-05-17] MEDS: ASPIRIN 81 MG TABLET, ENT COATED PO SCH (09:09)
[2019-05-17] MEDS: AMLODIPINE BESYLATE 5 MG TABLET PO SCH (09:09)
[2019-05-17] MEDS: CHOLECALCIFEROL (D3) 1,000 UNIT (25 MCG) TABLET PO SCH (09:09)
[2019-05-17] MEDS: DOCUSATE SODIUM 100 MG CAPSULE PO SCH (09:10)
[2019-05-17] MEDS: PSYLLIUM SEED-SF 5.85 GM PACKET PO SCH (09:10)
[2019-05-17] MEDS: LISINOPRIL 10 MG TABLET PO SCH (09:10)
[2019-05-17] MEDS: FLUTICASONE/UMECLIDIN/VILANTER 100-62.5-25 MCG/DOSE IH SCH (09:14)
[2019-05-17] MEDS: FAMOTIDINE 20 MG TABLET PO SCH (09:15)
[2019-05-17] MEDS: FLUTICASONE/VILANTEROL 200-25 MCG/DOSE IH SCH (09:15)
--- NOTE | 2019-05-17 13:33 | RADIOLOGY REPORT (SQ) ---
EXAM DESCRIPTION: FOOT RIGHT 2 VIEWS COMPLETED DATE/TIME: 05/17/2019 1:16 pm REASON FOR STUDY: Swelling and Pain COMPARISON: None. NUMBER OF VIEWS: Two views. TECHNIQUE: AP and lateral radiographic images acquired of the right foot. LIMITATIONS: None. FINDINGS: MINERALIZATION: Osteopenia. BONES: No acute fracture or dislocation. No erosion or periosteal reaction. 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 SOFT TISSUES: Diffuse soft tissue swelling. OTHER: Vascular calcifications. IMPRESSION: 1. No acute osseous abnormality of the right foot. 2. 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 TECHNICAL DOCUMENTATION: JOB ID: [id number] 2010 [employer]- All Rights Reserved Reading location - IP/workstation name: [email or web address]
[2019-05-17] MEDS: OXYCODONE-ACETAMINOPHEN 5-325 MG TABLET PO PRN (15:35)
[2019-05-17 16:23] VITALS: BP 120/58
--- NOTE | 2019-05-17 18:55 | PDOC DISCHARGE SUMMARY ---
Impression - Admit/DC Date/PCP Admission Date/Primary Care Provider: 04/27/19 18:15 ROBERT ROSALES, Discharge Date: 05/17/19 - Discharge Diagnosis (1) Closed fracture of greater tuberosity of right humerus Is this a current diagnosis for this admission?: Yes (2) Fall Is this a current diagnosis for this admission?: Yes (3) Hypertension Is this a current diagnosis for this admission?: Yes (4) COPD (chronic obstructive pulmonary disease) Is this a current diagnosis for this admission?: Yes (5) Hyperlipidemia Is this a current diagnosis for this admission?: Yes - Assessment Summary: 05/14: No acute event overnight. Denies acute complaints. She continues to ambulate well in the hallways. Still awaiting for results/adjudication of patient's and family's appeal to discharge. Unfortunately, this has been taking some time. Rediscussed with Dr. Garcia, orthopedics today to see if patient can get off the arm sling as it has been 2 weeks postop. Patient will need to be kept on the arm sling for 6 weeks post ORIF per orthopedics. 05/15 she is medically stable for discharge currently awaiting disposition - Additional Information Resuscitation Status: Full Code Discharge Diet: Cardiac Discharge Activity: Activity As Tolerated, No Lifting Over 10 Pounds Referrals: SAMUEL GARCIA MD [ACTIVE PROVISIONAL STAFF] - 05/23/19 10:30 am Home Medications: Albuterol Sulfate [Proair HFA Inhalation Aerosol 8.5 gm MDI] 2 puff IH Q6HP PRN 04/27/19 Amlodipine Besylate [Norvasc 5 mg Tablet] 5 mg PO DAILY 04/27/19 Aspirin [Ecotrin 81 mg EC Tablet] 81 mg PO DAILY 04/27/19 Atorvastatin Calcium [Lipitor 40 mg Tablet] 40 mg PO QHS 04/27/19 Budesonide/Formoterol Fumarate [Symbicort HFA 160-4.5 mcg Inhaler 6 gm] 2 puff IH Q12 04/27/19 Cholecalciferol (Vitamin D3) [Vitamin D3 1000 Unit Tablet] 1,000 unit PO DAILY 04/27/19 Lisinopril [Zestril] 10 mg PO DAILY 04/27/19 Oxycodone HCl/Acetaminophen [Percocet 5-325 mg Tablet] 1 tab PO DAILYP PRN 04/27/19 Psyllium Husk (with Sugar) [Metamucil Packet] 1 packet PO DAILY 04/27/19 History of Present Illiness History of Present Illness: THEODORA JACKSON is a 83 year old female Hospital Course Hospital Course: Patient had a right shoulder anterior dislocation as well as greater tuberosity fracture. Open reduction and anterior internal fixation of greater tuberosity fracture as well as rotator cuff repair was performed on April 28. Patient is actually remained hemodynamically stable while in hospital however her hospital stay was prolonged as there was concern from family about sending patient home as she lives alone. Attempts were made to place her in a halfway but this was not successful. At this time as patient is felt to be stable to be discharged home with home health and not requiring rehabilitation she has been discharged home in stable condition. She still has Steri-Strips in place from her shoulder surgery but this apparently she will follow off by itself with no suture removal as needed. Physical Exam Vital Signs: Temp Pulse Resp BP Pulse Ox 98.4 F 68 20 94/57 L 96 05/17/19 16:16 05/17/19 16:16 05/17/19 16:16 05/17/19 16:16 05/17/19 16:16 Intake & Output 05/16/19 05/17/19 05/18/19 06:59 06:59 06:59 Intake Total 760 1170 600 Balance 760 1170 600 Weight 58.5 kg 58.5 kg General appearance: PRESENT: no acute distress, well-developed Head exam: PRESENT: atraumatic Neck exam: PRESENT: full ROM. ABSENT: JVD Respiratory exam: PRESENT: clear to auscultation fabián, unlabored. ABSENT: rhonchi, tachypnea Cardiovascular exam: PRESENT: RRR, +S1, +S2 GI/Abdominal exam: ABSENT: tenderness Rectal exam: PRESENT: deferred Gentrourinary exam: PRESENT: other - R Shoulder sling Psychiatric exam: PRESENT: appropriate affect Results Laboratory Results: WBC 10.1 10^3/uL (4.0-10.5) 05/09/19 11:46 RBC 3.54 10^6/uL (3.72-5.28) L 05/09/19 11:46 Hgb 10.5 g/dL (12.0-15.5) L 05/09/19 11:46 Hct 31.0 % (36.0-47.0) L 05/09/19 11:46 MCV 88 fl (80-97) 05/09/19 11:46 MCH 29.5 pg (27.0-33.4) 05/09/19 11:46 MCHC 33.7 g/dL (32.0-36.0) 05/09/19 11:46 RDW 14.7 % (11.5-14.0) H 05/09/19 11:46 Plt Count 363 10^3/uL (150-450) 05/09/19 11:46 Lymph % (Auto) 15.7 % (13-45) 05/09/19 11:46 [place] % (Auto) 9.8 % (3-13) 05/09/19 11:46 Eos % (Auto) 5.1 % (0-6) 05/09/19 11:46 Baso % (Auto) 0.7 % (0-2) 05/09/19 11:46 Absolute Neuts (auto) 6.9 10^3/uL (1.7-8.2) 05/09/19 11:46 Absolute Lymphs (auto) 1.6 10^3/uL (0.5-4.7) 05/09/19 11:46 Absolute Monos (auto) 1.0 10^3/uL (0.1-1.4) 05/09/19 11:46 Absolute Eos (auto) 0.5 10^3/uL (0.0-0.6) 05/09/19 11:46 Absolute Basos (auto) 0.1 10^3/uL (0.0-0.2) 05/09/19 11:46 Seg Neutrophils % 68.7 % (42-78) 05/09/19 11:46 PT 13.4 SEC (11.4-15.4) 04/28/19 04:23 INR 1.02 04/28/19 04:23 INR (Anticoag Therapy) Cancelled 04/27/19 14:29 APTT 34.1 SEC (23.5-35.8) 04/28/19 04:23 Sodium 135.0 mmol/L (137-145) L 05/09/19 11:46 Potassium 4.2 mmol/L (3.6-5.0) 05/09/19 11:46 Chloride 96 mmol/L (98-107) L 05/09/19 11:46 Carbon Dioxide 29 mmol/L (22-30) 05/09/19 11:46 Anion Gap 10 (5-19) 05/09/19 11:46 BUN 16 mg/dL (7-20) 05/09/19 11:46 Creatinine 0.61 mg/dL (0.52-1.25) 05/09/19 11:46 Est GFR ( Amer) > 60 (>60) 05/09/19 11:46 Est GFR (MDRD) Non-Af > 60 (>60) 05/09/19 11:46 Glucose 75 mg/dL (75-110) 05/09/19 11:46 Calcium 9.1 mg/dL (8.4-10.2) 05/09/19 11:46 Magnesium 2.3 mg/dL (1.6-2.3) 04/28/19 04:23 Total Bilirubin 1.8 mg/dL (0.2-1.3) H 04/28/19 04:23 Direct Bilirubin 0.1 mg/dL (0.0-0.4) 04/28/19 04:23 Neonat Total Bilirubin Not Reportable 04/28/19 04:23 Neonat Direct Bilirubin Not Reportable 04/28/19 04:23 Neonat Indirect Bili Not Reportable 04/28/19 04:23 AST 33 U/L (14-36) 04/28/19 04:23 ALT 20 U/L (<35) 04/28/19 04:23 Alkaline Phosphatase 77 U/L (38-126) 04/28/19 04:23 Total Protein 7.1 g/dL (6.3-8.2) 04/28/19 04:23 Albumin 4.0 g/dL (3.5-5.0) 04/28/19 04:23 Impressions: Shoulder X-Ray 04/27/19 00:00 IMPRESSION: LIMITED STUDY. ANTERIOR DISLOCATION OF THE HUMERAL HEAD. SUBOPTIM AL VISUALIZATION OF THE HUMERAL HEAD, CANNOT EXCLUDE FRACTURE. THERE IS A POSSIBLE FRACTURE OF THE INFERIOR GLENOID. Shoulder X-Ray 04/27/19 00:00 IMPRESSION: Dislocation has not been reduced. There is a displaced fracture of the greater tuberosity. Cervical Spine CT 04/27/19 13:32 IMPRESSION: CHRONIC DEGENERATIVE CHANGES. NO ACUTE FINDINGS. Upper Extremity CT 04/27/19 13:34 IMPRESSION: 1. ANTERIOR DISLOCATION WITH DISPLACED COMMINUTED FRACTURE OF THE GREATER TUBEROSITY. 2. AIRSPACE DISEASE IN THE RIGHT LOWER LOBE, INCOMPLETELY IMAGED. Head CT 04/27/19 18:39 IMPRESSION: NO ACUTE INTRACRANIAL FINDINGS. EVIDENCE OF ACUTE STROKE: NO. Chest X-Ray 04/28/19 00:00 IMPRESSION: Cardiomegaly without a superimposed acute cardiopulmonary process. Fluoroscopy 04/28/19 00:00 IMPRESSION: IMAGE(S) OBTAINED DURING PROCEDURE. Shoulder X-Ray 04/28/19 00:00 IMPRESSION: IMAGE(S) OBTAINED DURING PROCEDURE. Venous Doppler Study 05/10/19 00:00 IMPRESSION: NO EVIDENCE DVT OR SVT IN THE LEFT LEG. Foot X-Ray 05/17/19 00:00 IMPRESSION: 1. No acute osseous abnormality of the right foot. 2. 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 Stroke Is this a Stroke Patient?: No Acute Heart Failure - Is this a Heart Failure Patient?: No
== END 2019-05-17 18:00 | disposition home health service (06) | DRG 494 ==
LOC: ER 11:54 → EH 18:15 → 4W 23:33 → 5 05-04 16:29
PROVIDERS: ADMIT Internal Medicine; ATTEND Internal Medicine
PROC: 0LQ10ZZ Repair Right Shoulder Tendon, Open Approach (ICD-10-PCS; 2019-04-28)
PROC: 0RSJ0ZZ Reposition Right Shoulder Joint, Open Approach (ICD-10-PCS; 2019-04-28)
PROC: 0PSC04Z Reposition Right Humeral Head with Internal Fixation Device, Open Approach (ICD-10-PCS; principal; 2019-04-28 16:00)
DX: S42.251A Displaced fracture of greater tuberosity of right humerus, initial encounter for closed fracture (principal); S43.004A Unspecified dislocation of right shoulder joint, initial encounter; S46.011A Strain of muscle(s) and tendon(s) of the rotator cuff of right shoulder, initial encounter; I25.10 Atherosclerotic heart disease of native coronary artery without angina pectoris; E78.00 Pure hypercholesterolemia, unspecified; I10 Essential (primary) hypertension; J44.9 Chronic obstructive pulmonary disease, unspecified; K59.00 Constipation, unspecified; M19.90 Unspecified osteoarthritis, unspecified site; Z60.2 Problems related to living alone; W18.39XA Other fall on same level, initial encounter; Y93.89 Activity, other specified; Y92.018 Other place in single-family (private) house as the place of occurrence of the external cause; Z88.0 Allergy status to penicillin; Z88.2 Allergy status to sulfonamides; Z88.8 Allergy status to other drugs, medicaments and biological substances; Z91.040 Latex allergy status; Z79.82 Long term (current) use of aspirin; Z79.51 Long term (current) use of inhaled steroids; Z79.899 Other long term (current) drug therapy
CPT/HCPCS: 01630; 36415; 70450; 71045; 72125; 80048; 80053; 83735; 85025; 85610; 85730; 87040; 93005; 93010; 93971; 94640; 96374; 96375; 99285; 99152; C1713; C1769; J0690; J1100; J1170; J1650; J2250; J2405; J2704; J2795; J3010; J3490; J7030; J7060; J7620; L3650

== ENCOUNTER 2019-10-31 09:07 | Observation (INO) | payer MEDICARE, MEDICAID ==
--- NOTE | 2019-10-31 10:30 | ER Document Report ---
ED General - General Chief Complaint: Eye Problem Stated Complaint: LEFT EYE PAIN/BLURRED VISION Time Seen by Provider: 10/31/19 09:38 Mode of Arrival: Ambulatory Information source: Patient, Relative Notes: Patient is an 83-year-old female who was sent over by Dr. Simeon's office. Patient has a significant past medical history that is pertinent for an aortic valve replacement and about 2017. She also has had eye problems the last couple of years that she states is gotten worse. Given that she also states that she went to [facility] ophthalmology yesterday had an entire work-up on her eyes and the diesel engine specialist felt that patient needed to be seen semi-emergently by her physician and since he is not in on today she was sent to the emergency room. The diesel engine specialist is concerned the patient was experiencing a condition called Amaurosis Fugas. The grandson is the relative that brought her in concerned because she is having increasing pain in the left thigh she is having falls. Patient denies any recent chest pain or shortness of breath. Patient states that the eye problem has been going on and off for several months but is getting worse over the past several days. Patient states she only takes a baby aspirin a day as a blood thinner. She is unsure of her cholesterol background. She does take cholesterol medication. She also states that when the reason she went to the eye doctor was because she had a white curtain around her eye. TRAVEL OUTSIDE OF THE [place] IN LAST 30 DAYS: No - HPI Onset: Last week Onset/Duration: Gradual Quality of pain: Achy Severity: Moderate Pain Level: 3 Associated symptoms: None Exacerbated by: Denies Relieved by: Denies Similar symptoms previously: Yes Recently seen / treated by doctor: Yes - Related Data Allergies/Adverse Reactions: Sulfa (Sulfonamide Antibiotics) Allergy (Severe, Verified 10/31/19 09:28) Anaphylaxis latex Allergy (Mild, Verified 10/31/19 09:28) Generalized rash codeine Allergy (Verified 10/31/19 09:28) Penicillins Adverse Reaction (Severe, Verified 10/31/19 09:28) Anaphylaxis Home Medications: list at bedside. Past Medical History - Social History Smoking Status: Never Smoker Chew tobacco use (# tins/day): No Frequency of alcohol use: None Drug Abuse: None Family History: Reviewed & Not Pertinent, COPD Patient has homicidal ideation: No - Past Medical History Cardiac Medical History: Reports: Hx Coronary Artery Disease, Hx Hypercholesterolemia, Hx Hypertension Denies: Hx Heart Attack Pulmonary Medical History: Reports: Hx Asthma, Hx Bronchitis, Hx COPD - SEVERE Denies: Hx Pneumonia Neurological Medical History: Denies: Hx Cerebrovascular Accident, Hx Seizures Endocrine Medical History: Denies: Hx Diabetes Mellitus Type 1, Hx Diabetes Mellitus Type 2, Hx Hyperthyroidism, Hx Hypothyroidism Renal/ Medical History: Denies: Hx End Stage Renal Disease Malignancy Medical History: Denies: Hx Bone Cancer, Hx Brain Cancer, Hx Breast Cancer, Hx Cervical Cancer, Hx Colorectal Cancer, Hx Leukemia, Hx Liver Cancer, Hx Lung Cancer, Hx Lymphoma, Hx Ovarian Cancer, Hx Pancreatic Cancer, Hx Renal (Kidney) Cancer, Hx Skin Cancer GI Medical History: Denies: Hx Cirrhosis, Hx Crohn's Disease, Hx Diverticulitis, Hx Gastroesophageal Reflux Disease, Hx Hepatitis, Hx Hiatal Hernia, Hx Ulcerative Colitis Musculoskeletal Medical History: 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 Skin Medical History: Denies Hx Eczema, Denies Hx Psoriasis Psychiatric Medical History: Denies: Hx Depression Traumatic Medical History: Denies: Hx Gunshot Wound, Hx Pneumothorax, Hx Traumatic Brain Injury Infectious Medical History: Denies: Hx C-Diff, Hx Hepatitis, Hx HIV, Hx MRSA, Hx VRE Past Surgical History: Reports: Hx Orthopedic Surgery - Percutaneous pinning of hip fracture, Hx Vascular Surgery - Repair of aortic rupture, Other - Vascular surgery of thoracic aorta - Immunizations Hx Diphtheria, Pertussis, Tetanus Vaccination: No Hx Pneumococcal Vaccination: 01/13/17 Review of Systems - Review of Systems Constitutional: No symptoms reported EENT: Eye pain, Blurred vision Cardiovascular: No symptoms reported Respiratory: No symptoms reported Gastrointestinal: No symptoms reported Genitourinary: No symptoms reported Female Genitourinary: No symptoms reported Musculoskeletal: No symptoms reported Skin: No symptoms reported Hematologic/Lymphatic: No symptoms reported Neurological/Psychological: See HPI Physical Exam - Vital signs Vitals: Temp Pulse Resp BP Pulse Ox 97.7 F 81 16 140/68 H 98 10/31/19 09:12 10/31/19 09:12 10/31/19 09:12 10/31/19 09:12 10/31/19 09:12 Interpretation: Hypertensive - Notes Notes: PHYSICAL EXAMINATION: GENERAL: Patient is a well-nourished well-developed 83-year-old female no apparent distress on examination today. HEAD: Atraumatic, normocephalic. EYES: Pupils equal round and reactive to light, extraocular movements intact, conjunctiva are normal. ENT: Nares patent, oropharynx clear without exudates. Moist mucous membranes. NECK: Normal range of motion, supple without lymphadenopathy LUNGS: Breath sounds clear to auscultation bilaterally and equal. No wheezes rales or rhonchi. HEART: Regular rate and rhythm patient displays a 4-6 diastolic murmur ABDOMEN: Soft, nontender, nondistended abdomen. No guarding, no rebound. No m asses appreciated. Female : deferred Musculoskeletal: Normal range of motion, no pitting or edema. No cyanosis. NEUROLOGICAL: Cranial nerves grossly intact. Normal speech, normal gait. Normal sensory, motor exams PSYCH: Normal mood, normal affect. SKIN: Warm, Dry, normal turgor, no rashes or lesions noted. Course - Re-evaluation Re-evalutation: 10/31/19 10:55 Patient's NIH score is 0 10/31/19 10:55 I discussed case with Dr. Mccord who was made aware patient coming here from Dr. Simeon's office. He has had me do a work-up to include getting a carotid Doppler ordered out of ER. He also wanted me to contact patient's paint mixer which I did Dr. Eckert however he is on vacation although he did talk to me. He felt that an echocardiogram was going to be necessary as well. Given patient's history of the aortic valve replacement and only anticoagulation with the baby aspirin and having similar TIA kind of symptoms and this felt that admission should be considered. - Vital Signs Vital signs: Temp Pulse Resp BP Pulse Ox 97.9 F 66 17 143/60 H 97 10/31/19 13:32 10/31/19 13:32 10/31/19 13:32 10/31/19 13:32 10/31/19 13:32 - Laboratory Result Diagrams: 10/31/19 10:40 10/31/19 10:40 Laboratory results interpreted by me: 10/31/19 10/31/19 10/31/19 10:25 10:40 10:40 RDW 15.4 H APTT 36.2 H Total Bilirubin Urine Blood MODERATE H Ur Leukocyte Esterase TRACE H 10/31/19 10:40 RDW APTT Total Bilirubin 1.4 H Urine Blood Ur Leukocyte Esterase Discharge - Discharge Clinical Impression: TIA (transient ischemic attack) Condition: Stable Disposition: ADMITTED INPATIENT Admitting Provider: Sai (Hospitalist)
[2019-10-31 10:44] LABS: APPEARANCE,URINE CLEAR; BILIRUBIN,URINE NEGATIVE (NEGATIVE); COLOR,URINE YELLOW; GLUCOSE, URINE NEGATIVE (NEGATIVE); KETONES,URINE NEGATIVE (NEGATIVE); LEUKOCYTE ESTERASE,URINE TRACE (NEGATIVE); NITRITE,URINE NEGATIVE (NEGATIVE); PROTEIN,URINE NEGATIVE (NEGATIVE); URINE SPECIFIC GRAVITY 1.014; UROBILINOGEN,URINE NEGATIVE mg/dL (<2.0)
[2019-10-31 10:53] LABS: ABSOLUTE EOSINOPHILS # (AUTO) 0.3 10^3/uL (0.0-0.6); ABSOLUTE LYMPHOCYTES (AUTO) 2.1 10^3/uL (0.5-4.7); ABSOLUTE MONOCYTES (AUTO) 0.8 10^3/uL (0.1-1.4); ABSOLUTE NEUT (AUTO) 7.3 10^3/uL (1.7-8.2); BASOPHILS % (AUTO) 0.4 % (0-2); EOSINOPHILS % (AUTO) 2.5 % (0-6); HEMATOCRIT 39.4 % (36.0-47.0); HEMOGLOBIN 13.2 g/dL (12.0-15.5); LYMPHOCYTES % (AUTO) 19.8 % (13-45); MEAN CORPUSCULAR HEMOGLOBIN 29.1 pg (27.0-33.4); MEAN CORPUSCULAR HGB CONC 33.6 g/dL (32.0-36.0); MEAN CORPUSCULAR VOLUME 87 fl (80-97); MONOCYTES % (AUTO) 7.8 % (3-13); PLATELET COUNT 305 10^3/uL (150-450); RED BLOOD COUNT 4.55 10^6/uL (3.72-5.28); RED CELL DISTRIBUTION WIDTH 15.4 % (11.5-14.0); SEGMENTED NEUTROPHILS % (AUTO) 69.5 % (42-78); TOTAL CELLS COUNTED % (AUTO) 100 %; WHITE BLOOD COUNT 10.4 10^3/uL (4.0-10.5)
[2019-10-31 10:59] LABS: INTERNATIONAL RATION (INR) 0.91; PROTHROMBIN TIME 12.5 SEC (11.4-15.4)
[2019-10-31 11:00] LABS: PARTIAL THROMBOPLASTIN TIME 36.2 SEC (23.5-35.8)
[2019-10-31 11:10] LABS: ALBUMIN 4.5 g/dL (3.5-5.0); ALKALINE PHOSPHATASE 87 U/L (38-126); ANION GAP 11 (5-19); ASPARTATE AMINO TRANSFERASE 27 U/L (14-36); BILIRUBIN,TOTAL 1.4 mg/dL (0.2-1.3); BLOOD UREA NITROGEN 19 mg/dL (7-20); CALCIUM 9.6 mg/dL (8.4-10.2); CARBON DIOXIDE 29 mmol/L (22-30); CHLORIDE 103 mmol/L (98-107); GLUCOSE 106 mg/dL (75-110); POTASSIUM 4.1 mmol/L (3.6-5.0); TOTAL PROTEIN 7.8 g/dL (6.3-8.2)
--- NOTE | 2019-10-31 11:38 | RADIOLOGY REPORT (SQ) ---
EXAM DESCRIPTION: CHEST SINGLE VIEW IMAGES COMPLETED DATE/TIME: 10/31/2019 11:16 am REASON FOR STUDY: cough COMPARISON: AP view of the chest from 04/28/2019. EXAM PARAMETERS: NUMBER OF VIEWS: One view. TECHNIQUE: An AP view of the chest was obtained. RADIATION DOSE: NA LIMITATIONS: None. FINDINGS: LUNGS AND PLEURA: Patchy asymmetric opacities in the inferior aspect of the right hemithor ax. There is no sizable pleural effusion or pneumothorax. MEDIASTINUM AND HILAR STRUCTURES: No mediastinal or hilar contour abnormality. HEART AND VASCULAR STRUCTURES: The cardiac silhouette is enlarged. BONES: No acute findings. HARDWARE: None in the chest. OTHER: Sternotomy wires and left atrial appendage occlusion device. IMPRESSION: Acute patchy asymmetric opacities in the inferior aspect of the right hemithorax that co uld represent atelectasis or pneumonia. TECHNICAL DOCUMENTATION: JOB ID: [id number] 2010 [employer]- All Rights Reserved Reading location - IP/workstation name: [email or web address]
[2019-10-31] MEDS ORDERED: ACETAMINOPHEN 325 MG TABLET PO PRN (11:41)
--- NOTE | 2019-10-31 11:51 | ER Document Report ---
Doctor's Note Notes: I was asked see this patient along with midlevel provider regarding visual symptoms of the left eye. 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 This is an elderly lady with past history of stroke who uses a quad cane normally for ambulation. She is reporting no other new deficits. She is on atorvastatin 40 mg daily and also takes aspirin daily. She is not on any other type of antiplatelet agent or anticoagulant. 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. Neurologic exam at this time shows no focal deficit. She has a grade 2 systolic murmur with a regular rhythm with occasional extrasystoles. Her vital signs are stable. No acute changes noted on noncontrast head CT. 10/31/19 11:46 I would recommend admission of this patient in consideration of additional Plavix. She needs carotid duplex scan and echocardiogram.
[2019-10-31] MEDS ORDERED: ALBUTEROL SULFATE 0.042% NEB (1.25 MG/3 ML) AMPUL NEB PRN (12:11)
[2019-10-31] MEDS ORDERED: OXYCODONE-ACETAMINOPHEN 5-325 MG TABLET PO PRN (12:12)
[2019-10-31] MEDS ORDERED: SIMETHICONE 80 MG TAB.CHEW PO PRN (12:13)
--- NOTE | 2019-10-31 12:17 | PDOC H&P ---
History of Present Illness Admission Date/PCP: 10/31/19 11:23 ROBERT SIMEON DO Patient complains of: Left eye pain and feeling of curtain coming over left eye History of Present Illness: THEODORA JACKSON is a 83 year old female with PMH significant for HTN, dys lipidemia, remote tissue AVR, COPD, asthma, and IBS who presented to the ED from Dr. Simeon's office. According to the patient she has been having left eye pain for the past 1 to 2 years which is gotten worse. She was seen at [facility] on 10/30/2019 where she had a comprehensive work-up. The production analyst felt that the patient needed to be seen semi- urgently by her PCP because of concerns that the patient was experiencing amaurosis fugax. Patient's PCP was not in the office today and referred her to the ED. In the ED the labs were obtained which were unremarkable. An electrocardiogram was completed which revealed sinus rhythm. A CT of the head and carotid Doppler were ordered however they are pending at the time of this discharge. The hospitalist service was consulted to admit the patient for further evaluation and treatment. Past Medical History Cardiac Medical History: Reports: Hyperlipidema, Hypertension Denies: Myocardial Infarction Pulmonary Medical History: Reports: Asthma, Bronchitis, Chronic Obstructive Pulmonary Disease (COPD) - SEVERE Denies: Pneumonia, Respiratory Failure, Sleep Apnea EENT Medical History: Reports: Other - Left eye pain and possible amaurosis fugax Neurological Medical History: Denies: Hemorrhagic CVA, Ischemic CVA, Migraine, Multiple Sclerosis, Seizures Endocrine Medical History: Denies: Diabetes Mellitus Type 1, Diabetes Mellitus Type 2, Hyperthyroidism, Hypothyroidism Renal/ Medical History: Denies: Chronic Kidney Disease, End Stage Renal Disease Malignancy Medical History: Denies: Bone Cancer, Brain Cancer, Breast Cancer, Cervical Cancer, Colorectal Cancer, Leukemia, Liver Cancer, Lung Cancer, Lymphoma, Ovarian Cancer, Pancreatic Cancer, Renal (Kidney) Cancer, Skin Cancer GI Medical History: Reports: Other - IBS Denies: Cirrhosis, Crohn's Disease, Diverticulitis, Gastroesophageal Reflux Disease, Hepatitis, Hiatal Hernia, Peptic Ulcer Disease, Ulcerative Colitis Musculoskeltal Medical History: Reports: Arthritis - GENERALIZED Denies: Fibromyalgia, Gout Skin Medical History: Denies: Eczema, Psoriasis Psychiatric Medical History: Denies: Alcohol Dependency, Dementia, Depression, General Anxiety Disorder, Personality Disorder, Schizoaffective Disorder, Substance Abuse, Tobacco Dependency Traumatic Medical History: Denies: Gunshot Wound, Pneumothorax, Stab Wound, Traumatic Brain Injury Hematology: Denies: Anemia, Hemophilia, Bleeding Tendencies Infectious Medical History: Denies: Clostridium Difficile, HIV, Methicillin-Resistant Staph Aureus, Vancomycin-Resistant Enterococci Past Surgical History Past Surgical History: Reports: Orthopedic Surgery - Percutaneous pinning of hip fracture, Vascular Surgery - Repair of aortic rupture, Other - Tissue AVR Social History Information Source: Patient Lives with: Alone Smoking Status: Never Smoker Electronic Cigarette use?: No Frequency of Alcohol Use: None Hx Recreational Drug Use: No Drugs: None Hx Prescription Drug Abuse: No Family History Family History: Reviewed & Not Pertinent, COPD Parental Family History Reviewed: Yes - Father in his 90s. Mother of CHF in her 70s Children Family History Reviewed: Yes Sibling(s) Family History Reviewed.: Yes Medication/Allergy Home Medications: Albuterol Sulfate [Proair HFA Inhalation Aerosol 8.5 gm MDI] 2 puff IH Q6HP PRN 04/27/19 Amlodipine Besylate [Norvasc 5 mg Tablet] 5 mg PO DAILY 04/27/19 Aspirin [Ecotrin 81 mg EC Tablet] 81 mg PO DAILY 04/27/19 Atorvastatin Calcium [Lipitor 40 mg Tablet] 40 mg PO QHS 04/27/19 Budesonide/Formoterol Fumarate [Symbicort HFA 160-4.5 mcg Inhaler 6 gm] 2 puff IH Q12 04/27/19 Cholecalciferol (Vitamin D3) [Vitamin D3 1000 Unit Tablet] 1,000 unit PO DAILY 04/27/19 Lisinopril [Zestril] 10 mg PO DAILY 04/27/19 Oxycodone HCl/Acetaminophen [Percocet 5-325 mg Tablet] 1 tab PO DAILYP PRN 04/27/19 Psyllium Husk (with Sugar) [Metamucil Packet] 1 packet PO DAILY 04/27/19 Allergies/Adverse Reactions: Sulfa (Sulfonamide Antibiotics) Allergy (Severe, Verified 10/31/19 09:28) Anaphylaxis latex Allergy (Mild, Verified 10/31/19 09:28) Generalized rash codeine Allergy (Verified 10/31/19 09:28) Penicillins Adverse Reaction (Severe, Verified 08/18/20 09:28) Anaphylaxis Review of Systems Constitutional: ABSENT: anorexia, chills, fever(s), headache(s), night sweats, weakness Eyes: PRESENT: as per HPI, visual disturbances Ears: ABSENT: hearing changes Nose, Mouth, and Throat: ABSENT: headache(s), sore throat, vertigo Cardiovascular: ABSENT: chest pain, dyspnea on exertion, edema, orthropnea, palpitations Respiratory: ABSENT: cough, dyspnea, hemoptysis, sputum Gastrointestinal: PRESENT: constipation, diarrhea, other - Patient has IBS with alternating diarrhea and constipation. ABSENT: abdominal pain, coffee ground emesis, dysphagia, heartburn, hematemesis, hematochezia, melena, nausea, vomiting Genitourinary: ABSENT: difficulty urinating, dysuria, hematuria Musculoskeletal: ABSENT: back pain, muscle weakness Integumentary: ABSENT: diaphoresis, wounds Neurological: PRESENT: abnormal gait - Secondary to chronic hip disease/arthritis, lack of coordination, paresthesias - Intermittent numbness/tingling of the feet, tingling. ABSENT: abnormal movements, abnormal speech, confusion, convulsions, dizziness, focal weakness, memory loss, numbness, restless legs, syncope, tremor(s), vertigo, weakness Psychiatric: ABSENT: anxiety, depression, hallucinations, homidical ideation, cox icidal ideation Endocrine: ABSENT: cold intolerance, heat intolerance, polydipsia, polyphagia, polyuria Hematologic/Lymphatic: ABSENT: easy bleeding, easy bruising Physical Exam Vital Signs: Temp Pulse Resp BP Pulse Ox 97.7 F 81 16 140/68 H 98 10/31/19 09:12 10/31/19 09:12 10/31/19 09:12 10/31/19 09:12 10/31/19 09:12 Intake & Output 10/30/19 10/31/19 11/01/19 06:59 06:59 06:59 Weight 58.1 kg General appearance: PRESENT: no acute distress, cooperative, well-developed, well-nourished Head exam: PRESENT: atraumatic, normocephalic Eye exam: PRESENT: conjunctiva pink Ear exam: PRESENT: normal external ear exam Mouth exam: PRESENT: moist, tongue midline Neck exam: ABSENT: carotid bruit, JVD, thyromegaly, tracheostomy Respiratory exam: PRESENT: clear to auscultation fabián, symmetrical, unlabored. ABSENT: accessory muscle use, decreased breath sounds Cardiovascular exam: PRESENT: RRR, +S1, +S2, systolic murmur Pulses: PRESENT: normal carotid pulses, normal radial pulses Vascular exam: PRESENT: normal capillary refill GI/Abdominal exam: PRESENT: normal bowel sounds, soft. ABSENT: ascites, distended, tenderness Rectal exam: PRESENT: deferred Extremities exam: ABSENT: calf tenderness, pedal edema Musculoskeletal exam: PRESENT: ambulatory Neurological exam: PRESENT: alert, awake, oriented to person, oriented to place, oriented to time, oriented to situation, CN II-XII grossly intact. ABSENT: motor sensory deficit Psychiatric exam: PRESENT: appropriate affect, normal mood. ABSENT: agitated, anxious Skin exam: PRESENT: dry, normal color, warm Results Laboratory Results: 10/31/19 10:40 10/31/19 10:40 10/31/19 10/31/19 10/31/19 10:25 10:40 10:40 WBC 10.4 RBC 4.55 Hgb 13.2 Hct 39.4 MCV 87 MCH 29.1 MCHC 33.6 RDW 15.4 H Plt Count 305 Seg Neutrophils % 69.5 Sodium 142.8 Potassium 4.1 Chloride 103 Carbon Dioxide 29 Anion Gap 11 BUN 19 Creatinine 0.76 Est GFR ( Amer) > 60 Glucose 106 Calcium 9.6 Total Bilirubin 1.4 H AST 27 Alkaline Phosphatase 87 Total Protein 7.8 Albumin 4.5 Urine Color YELLOW Urine Appearance CLEAR Urine pH 5.0 Ur Specific [place] 1.014 Urine Protein NEGATIVE Urine Glucose (UA) NEGATIVE Urine Ketones NEGATIVE Urine Blood MODERATE H Urine Nitrite NEGATIVE Ur Leukocyte Esterase TRACE H Urine WBC (Auto) 1 Urine RBC (Auto) 2 10/31/19 10:40 Troponin I < 0.012 Impressions: Chest X-Ray 10/31/19 10:08 IMPRESSION: Acute patchy asymmetric opacities in the inferior aspect of the ri ght hemithorax that could represent atelectasis or pneumonia. Assessment and Plan - Diagnosis (1) TIA (transient ischemic attack) Is this a current diagnosis for this admission?: Yes Plan: CT of the head, carotid Dopplers, and echocardiogram pending Once results of current imaging available we will evaluate if further imaging necessary (2) Amaurosis fugax of left eye Is this a current diagnosis for this admission?: Yes (3) Left eye pain Is this a current diagnosis for this admission?: Yes Plan: The etiology of the patient's left eye pain is unclear Defer ultimate treatment to outpatient ophthalmology Continue oxycodone/APAP 5/325 mg p.o. every 6 hours as needed (4) Hypertension Qualifiers: Hypertension type: essential hypertension Qualified Code(s): I10 - Essential (primary) hypertension Is this a current diagnosis for this admission?: Yes Plan: Continue amlodipine 5 mg p.o. daily Continue lisinopril 10 mg p.o. daily (5) Dyslipidemia Is this a current diagnosis for this admission?: Yes Plan: Continue atorvastatin 40 mg p.o. daily (6) COPD (chronic obstructive pulmonary disease) Qualifiers: COPD type: unspecified COPD Qualified Code(s): J44.9 - Chronic obstructive pulmonary disease, unspecified Is this a current diagnosis for this admission?: Yes Plan: Continued inhaled steroid, patient takes Symbicort at home however this is nonf ormulary Start fluticasone/Vilanterol 100/25 mcg inhaled daily - Time Time Spent with patient: 35 or more minutes Medications reviewed and adjusted accordingly: Yes Anticipated Discharge Disposition: Home, Self Care Anticipated Discharge Timeframe: within 72 hours
--- NOTE | 2019-10-31 12:38 | RADIOLOGY REPORT (SQ) ---
EXAM DESCRIPTION: CT HEAD WITHOUT IMAGES COMPLETED DATE/TIME: 10/31/2019 12:12 pm REASON FOR STUDY: tia COMPARISON: 04/27/2019 TECHNIQUE: Axial images acquired through the brain without intravenous contrast. Images reviewed wi th bone, brain and subdural windows. Additional sagittal and coronal reconstructions were generated. Images stored on PACS. All CT scanners at this facility use dose modulation, iterative reconstruction, and/or weight based d osing when appropriate to reduce radiation dose to as low as reasonably achievable (ALARA). [facility]: Dose Right [facility]: CareDose [facility]: Dose Right [facility]: Teradose 4D [facility]: [employer] RADIATION DOSE: CT Rad equipment meets quality standard of care and radiation dose reduction techniq ues were employed. CTDIvol: 53.2 mGy. DLP: 1070 mGy-cm. mGy. LIMITATIONS: None. FINDINGS: VENTRICLES: Normal size and contour. CEREBRUM: No masses. No hemorrhage. No midline shift. No evidence for acute infarction. Normal gra y/white matter differentiation. No areas of low density in the white matter. CEREBELLUM: No masses. No hemorrhage. No alteration of density. No evidence for acute infarction. EXTRAAXIAL SPACES: No fluid collections. No masses. ORBITS AND GLOBE: No intra- or extraconal masses. Normal contour of globe without masses. CALVARIUM: No fracture. PARANASAL SINUSES: No fluid or mucosal thickening. SOFT TISSUES: No mass or hematoma. OTHER: No other significant finding. IMPRESSION: NORMAL BRAIN CT WITHOUT CONTRAST. EVIDENCE OF ACUTE STROKE: NO. COMMENT: Quality ID # [id number]: Final reports with documentation of one or more dose reduction techniques (e.g., Automated exposure control, adjustment of the mA and/or kV according to patient size, use of iterative reconstruction technique) TECHNICAL DOCUMENTATION: JOB ID: [id number] 2010 [employer]- All Rights Reserved Reading location - IP/workstation name: [email or web address]
--- NOTE | 2019-10-31 13:59 | RADIOLOGY REPORT (SQ) ---
EXAM DESCRIPTION: CAROTID DOPPLER IMAGES COMPLETED DATE/TIME: 10/31/2019 1:32 pm REASON FOR STUDY: tia COMPARISON: 04/23/2016 TECHNIQUE: Grayscale ultrasound, Doppler velocity and spectra, and color Doppler images acquired of the extra-cranial carotid and vertebral arteries. Images stored on PACS. LIMITATIONS: None. FINDINGS: RIGHT CAROTID CCA Velocities: Within normal limits. ICA Velocities Peak systolic 77 cm/s. End diastolic 16 cm/s. Proximal ICA/CCA peak systolic ratio 1. There is a small amount of plaque in the proximal ICA. The more distal ICA is tortuous. LEFT CAROTID CCA Velocities: Within normal limits. ICA Velocities Peak systolic 107 cm/s. End diastolic 25 cm/s. Proximal ICA/CCA peak systolic ratio 1.4. There is some plaque in the carotid bulb and proximal ICA. Some higher velocity is seen in the dista l ICA VERTEBRAL ARTERIES: Antegrade flow. Normal waveforms. SUBCLAVIAN ARTERIES: No finding. OTHER: No other significant finding. IMPRESSION: NO HEMODYNAMICALLY SIGNIFICANT STENOSIS. COMMENT: Quality ID #[id number]: Velocity criteria are extrapolated from the diameter data as defined by t he Society of Radiologists in Ultrasound Consensus Conference. Radiology 2003: 229; 340-346. TECHNICAL DOCUMENTATION: JOB ID: [id number] 2010 [employer]- All Rights Reserved Reading location - IP/workstation name: [email or web address]
[2019-10-31] MEDS: ENOXAPARIN SODIUM INJ 40 MG/0.4 ML DISP.SYRIN SUBCUT SCH (14:49)
--- NOTE | 2019-10-31 19:31 | EKG REPORT ---
SEVERITY:- ABNORMAL ECG - SINUS RHYTHM RIGHT BUNDLE BRANCH BLOCK : Confirmed by: Maryann Chavez 31-Oct-2019 19:30:05
[2019-10-31] MEDS ORDERED: ATORVASTATIN CALCIUM 40 MG TABLET PO SCH (22:00)
--- NOTE | 2019-10-31 22:42 | RADIOLOGY REPORT (SQ) ---
MRA of the brain: 10/31/2019 9:40 PM CDT TECHNIQUE: Noncontrast swhn-mo-zalbsc images were obtained through the cerebral circulation. Reconstructed MIP and 3-D reconstructed images were also obtained for pertinent clinical evaluation. COMPARISON: None available HISTORY: 83-year-old patient with concern for an acute stroke. FINDINGS: No discrete filling defect is seen within the middle, anterior, and posterior cerebral arteries. The bilateral posterior communicating arteries are unremarkable. The visualized vertebral arteries appear unremarkable. The carotid arteries appear to be well opacified. No obvious aneurysm or stenosis is readily apparent. The basilar artery and visualized portions of the posterior circulation appear unremarkable. There is mild mucoperiosteal thickening at the visualized ethmoid sinuses. IMPRESSION: No discrete filling defect, aneurysm, or obvious stenosis is seen within the anterior or posterior intracranial circulation.
--- NOTE | 2019-10-31 22:44 | RADIOLOGY REPORT (SQ) ---
MRI of the brain without intravenous contrast: 10/31/2019 9:41 PM CDT INDICATION: 83-year-old patient with TIA COMPARISON: CT the head from 10/31/2019 TECHNIQUE: Sagittal T1; axial diffusion, ADC, T2, FLAIR images through the brain were obtained without intravenous contrast administered. FINDINGS: There is mild prominence of the cerebral sulci and ventricles, suggestive of cerebral atrophy. Mild nonspecific periventricular hyperintense signal is also seen, which may reflect chronic microvascular ischemia. No obvious restricted diffusion is seen. The cervicomedullary junction is unremarkable. The visualized orbits also appear unremarkable. No extra-axial fluid collection is seen. No midline shift or mass effect is seen. The visualized vascular flow voids appear normal. The cerebellopontine angles appear normal. No abnormal signal is seen to suggest acute hemorrhage. The thompson-white matter differentiation is normal. No focal signal abnormality is seen. There is mild mucoperiosteal thickening at the ethmoid sinuses. IMPRESSION: 1. No acute intracranial process is seen. 2. Mild cerebral atrophy and periventricular white matter changes are seen.
[2019-11-01 04:32] LABS: HEMOGLOBIN 11.5 g/dL (12.0-15.5); MEAN CORPUSCULAR HEMOGLOBIN 29.6 pg (27.0-33.4); MEAN CORPUSCULAR HGB CONC 33.9 g/dL (32.0-36.0); MEAN CORPUSCULAR VOLUME 87 fl (80-97); PLATELET COUNT 235 10^3/uL (150-450); RED CELL DISTRIBUTION WIDTH 15.4 % (11.5-14.0); WHITE BLOOD COUNT 9.2 10^3/uL (4.0-10.5)
[2019-11-01 04:50] LABS: ANION GAP 5 (5-19); BLOOD UREA NITROGEN 26 mg/dL (7-20); CALCIUM 8.7 mg/dL (8.4-10.2); CARBON DIOXIDE 28 mmol/L (22-30); CHLORIDE 106 mmol/L (98-107); CHOLESTEROL 157.95 mg/dL (0-200); GLUCOSE 98 mg/dL (75-110); POTASSIUM 4.4 mmol/L (3.6-5.0); TRIGLYCERIDES 111 mg/dL (<150)
[2019-11-01 05:01] LABS: DIRECT LDL 87 mg/dL (<100)
[2019-11-01 08:36] LABS: APPEARANCE,URINE CLEAR; BILIRUBIN,URINE NEGATIVE (NEGATIVE); COLOR,URINE STRAW; GLUCOSE, URINE NEGATIVE (NEGATIVE); KETONES,URINE NEGATIVE (NEGATIVE); LEUKOCYTE ESTERASE,URINE NEGATIVE (NEGATIVE); NITRITE,URINE NEGATIVE (NEGATIVE); PROTEIN,URINE NEGATIVE (NEGATIVE); URINE SPECIFIC GRAVITY 1.008; UROBILINOGEN,URINE NEGATIVE mg/dL (<2.0)
[2019-11-01] MEDS ORDERED: FLUTICASONE/VILANTEROL 100-25 MCG/DOSE IH SCH (10:00)
[2019-11-01] MEDS ORDERED: DOCUSATE SODIUM 100 MG CAPSULE PO SCH (10:00)
[2019-11-01] MEDS ORDERED: ASPIRIN 81 MG TABLET, ENT COATED PO SCH (10:00)
[2019-11-01] MEDS ORDERED: AMLODIPINE BESYLATE 5 MG TABLET PO SCH (10:00)
[2019-11-01] MEDS ORDERED: LISINOPRIL 10 MG TABLET PO SCH (10:00)
[2019-11-01] MEDS: ENOXAPARIN SODIUM INJ 40 MG/0.4 ML DISP.SYRIN SUBCUT SCH (10:11)
--- NOTE | 2019-11-01 13:15 | XCELERA REPORT ---
[address] [address] Transthoracic Echocardiogram Report Name: THEODORA JACKSON Age: 83 yrs Gender: Female : 1935 Patient Status: Inpatient Patient Location: [address] [place] [address] Study Date: 10/31/2019 05:37 PM History: ROB Height: 62 in Weight: 128 lb BSA: 1.6 m2 Procedure: A complete two-dimensional transthoracic echocardiogram was performed (2D, M-mode, spectral and color flow Doppler). The study was technically adequate with some images being suboptimal in quality. Reason For Study: TIA Previous Evaluation: A previous study was performed on LVEF was normal. History: TIA. Ordering Physician: ROBERT COLON Performed By: Paula Simpson Interpretation Summary Left ventricular systolic function is normal. The Ejection Fraction estimate is 55-60% The right ventricle is normal in size and function. There is a trace amount of mitral regurgitation There is mild aortic stenosis Ao V=261 cm/s Mean PG=14 mm Hg There is a trace to mild amount of aortic regurgitation There is no pericardial effusion. MMode/2D Measurements & Calculations RVDd: 2.6 cm LVIDd: 3.5 cm FS: 37.2 % Ao root diam: 2.6 cm IVSd: 1.2 cm LVIDs: 2.2 cm EDV(Teich): 52.5 ml Ao root area: 5.4 cm2 LVPWd: 0.99 cm ESV(Teich): 16.7 ml LA dimension: 3.4 cm EF(Teich): 68.1 % LVOT diam: 2.2 cm LVOT area: 3.9 cm2 Doppler Measurements & Calculations MV E max leigh: MV P1/2t max leigh: Ao V2 max: AI max leigh: 80.9 cm/sec 106.0 cm/sec 261.8 cm/sec 234.6 cm/sec MV A max leigh: MV P1/2t: 77.3 msec Ao max PG: AI max P.7 cm/sec MVA(P1/2t): 2.8 cm2 27.4 mmHg 22.0 mmHg MV E/A: 0.80 MV dec slope: Ao V2 mean: AI dec slope: 171.0 cm/sec 108.4 cm/sec2 401.4 cm/sec2 Ao mean PG: AI P1/2t: MV dec time: 0.21 sec14.0 mmHg 633.9 msec Ao V2 VTI: 58.9 cm DARSHAN(I,D): 1.7 cm2 DARSHAN(V,D): 1.6 cm2 LV V1 max PG: SV(LVOT): 98.5 ml PA V2 max: AV P1/2t-pr_phl: 4.4 mmHg 116.0 cm/sec 633.9 msec LV V1 mean PG: PA max P.3 mmHg 5.4 mmHg LV V1 max: 104.6 cm/sec LV V1 mean: 69.8 cm/sec LV V1 VTI: 25.1 cm MV P1/2t-pr_phl: 77.3 msec Left Ventricle The left ventricular cavity is small. There is mild to moderate concentric left ventricular hypertrophy. Left ventricular systolic function is normal. The Ejection Fraction estimate is 55-60%. Doppler measurements suggest impaired left ventricular relaxation, which is associated with grade I/IV or mild diastolic dysfunction. No regional wall motion abnormalities noted. There is no thrombus. Right Ventricle The right ventricle is normal in size and function. Atria The right atrium is normal. The left atrium is borderline dilated. The interatrial septum is intact with no evidence for an atrial septal defect. There is no Doppler evidence for an interatrial shunt. Mitral Valve The mitral valve is grossly normal. There is a trace amount of mitral regurgitation. Aortic Valve The aortic valve is moderately calcified. The aortic valve is sclerotic and shows some degree of functional abnormality. The aortic valve opens well. There is mild aortic stenosis. Ao V=261 cm/s Mean PG=14 mm Hg. There is a trace to mild amount of aortic regurgitation. Tricuspid Valve The tricuspid valve is normal in structure and function. There is a trace amount of tricuspid regurgitation. Tricuspid regurgitation jet envelope not well defined to measure RV systolic pressure accurately. Pulmonic Valve The pulmonic valve is not well visualized. There is a trace or physiologic amount of pulmonic regurgitation. Great Vessels The aortic root is normal size. The inferior vena cava appeared normal and decreased > 50% with respiration (RAP 5-10 mmHg). Effusions There is no pericardial effusion. : ROBERT COLON Anil
--- NOTE | 2019-11-01 15:35 | PDOC DISCHARGE SUMMARY ---
Impression - Admit/DC Date/PCP Admission Date/Primary Care Provider: 10/31/19 11:23 ROBERT SIMEON DO Discharge Date: 11/01/19 - Discharge Diagnosis (1) TIA (transient ischemic attack) Is this a current diagnosis for this admission?: Yes (2) Amaurosis fugax of left eye Is this a current diagnosis for this admission?: Yes (3) Left eye pain Is this a current diagnosis for this admission?: Yes (4) Hypertension Is this a current diagnosis for this admission?: Yes (5) Dyslipidemia Is this a current diagnosis for this admission?: Yes (6) COPD (chronic obstructive pulmonary disease) Is this a current diagnosis for this admission?: Yes - Additional Information Discharge Diet: As Tolerated Discharge Activity: Activity As Tolerated Referrals: ROBERT SIMEON DO [Primary Care Provider] - 11/08/19 1:30 pm ROBERT QUINONEZ MD [NO LOCAL MD] - Home Medications: Albuterol Sulfate [Proair HFA Inhalation Aerosol 8.5 gm MDI] 2 puff IH Q6HP PRN 04/27/19 Amlodipine Besylate [Norvasc 5 mg Tablet] 5 mg PO DAILY 04/27/19 Aspirin [Ecotrin 81 mg EC Tablet] 81 mg PO DAILY 04/27/19 Atorvastatin Calcium [Lipitor 40 mg Tablet] 40 mg PO QHS 04/27/19 Budesonide/Formoterol Fumarate [Symbicort HFA 160-4.5 mcg Inhaler 6 gm] 2 puff IH Q12 04/27/19 Cholecalciferol (Vitamin D3) [Vitamin D3 1000 Unit Tablet] 5,000 unit PO DAILY 04/27/19 Lisinopril [Zestril] 10 mg PO DAILY 04/27/19 Oxycodone HCl/Acetaminophen [Percocet 5-325 mg Tablet] 1 tab PO DAILYP PRN 04/27/19 Psyllium Husk (with Sugar) [Metamucil Packet] 1 packet PO DAILY 04/27/19 Ascorbic Acid [Vitamin C 500 mg Tablet] 500 mg PO DAILY 10/31/19 Biotin 1,000 mcg PO DAILY 10/31/19 Calcium Carbonate [Calcium] 500 mg PO DAILY 10/31/19 Cyanocobalamin (Vitamin B-12) [Vitamin B-12 1000 mcg Tablet] 1 tab PO DAILY 08/18/20 Simethicone 125 mg PO DAILYP PRN 10/31/19 History of Present Illiness History of Present Illness: THEODORA JACKSON is a 83 year old female with PMH significant for HTN, dyslipidemia, remote tissue AVR, COPD, asthma, and IBS who presented to the ED from Dr. Simeon's office. According to the patient she has been having left eye pain for the past 1 to 2 years which is gotten worse. She was seen at [facility] on 10/30/2019 where she had a comprehensive work-up. The branch office manager felt that the patient needed to be seen semi- urgently by her PCP because of concerns that the patient was experiencing amaurosis fugax. Patient's PCP was not in the office today and referred her to the ED. In the ED the labs were obtained which were unremarkable. An electrocardiogram was completed which revealed sinus rhythm. A CT of the head and carotid Doppler were ordered however they are pending at the time of this discharge. The hospitalist service was consulted to admit the patient for further evaluation and treatment. Hospital Course Hospital Course: Patient underwent CT of the brain, MRI of the brain, carotid Dopplers, and echocardiogram while hospitalized, none of which revealed obvious cause of her symptoms. Her lipid profile was also reviewed which was appropriate for her current therapy. It was explained to the patient and the patient's grandson that at this time we have not identified a specific cause for the patient's symptoms. I recommend outpatient neurology follow-up as well as follow-up with the patient's PCP and return visit to the patient's branch office manager. Copies of all reports were given to the patient so that she could take them her follow-up appointments. Patient was discharged in stable condition. Physical Exam Vital Signs: Temp Pulse Resp BP Pulse Ox 97.8 F 85 15 123/64 96 11/01/19 11:10 11/01/19 14:00 11/01/19 12:00 11/01/19 12:00 11/01/19 12:00 Intake & Output 10/31/19 11/01/19 11/02/19 06:59 06:59 06:59 Intake Total 1020 240 Output Total 200 320 Balance 820 -80 Weight 58.5 kg General appearance: PRESENT: no acute distress, cooperative, well-developed, well-nourished Head exam: PRESENT: atraumatic, normocephalic Eye exam: PRESENT: conjunctiva pink. ABSENT: scleral icterus Mouth exam: PRESENT: moist, tongue midline Neck exam: ABSENT: JVD Respiratory exam: PRESENT: clear to auscultation fabián, symmetrical, unlabored. ABSENT: accessory muscle use Cardiovascular exam: PRESENT: RRR, +S1, +S2 Pulses: PRESENT: normal carotid pulses, normal radial pulses GI/Abdominal exam: PRESENT: normal bowel sounds, soft. ABSENT: distended, tenderness Rectal exam: PRESENT: deferred Extremities exam: ABSENT: calf tenderness, pedal edema Musculoskeletal exam: PRESENT: ambulatory Neurological exam: PRESENT: alert, awake, oriented to person, oriented to place, oriented to time, oriented to situation, CN II-XII grossly intact. ABSENT: motor sensory deficit Psychiatric exam: PRESENT: appropriate affect, normal mood. ABSENT: agitated, anxious Skin exam: PRESENT: dry, normal color, warm Results Laboratory Results: WBC 9.2 10^3/uL (4.0-10.5) 11/01/19 04:19 RBC 3.90 10^6/uL (3.72-5.28) 11/01/19 04:19 Hgb 11.5 g/dL (12.0-15.5) L 11/01/19 04:19 Hct 34.0 % (36.0-47.0) L 11/01/19 04:19 MCV 87 fl (80-97) 11/01/19 04:19 MCH 29.6 pg (27.0-33.4) 11/01/19 04:19 MCHC 33.9 g/dL (32.0-36.0) 11/01/19 04:19 RDW 15.4 % (11.5-14.0) H 11/01/19 04:19 Plt Count 235 10^3/uL (150-450) 11/01/19 04:19 Lymph % (Auto) 19.8 % (13-45) 10/31/19 10:40 [place] % (Auto) 7.8 % (3-13) 10/31/19 10:40 Eos % (Auto) 2.5 % (0-6) 10/31/19 10:40 Baso % (Auto) 0.4 % (0-2) 10/31/19 10:40 Absolute Neuts (auto) 7.3 10^3/uL (1.7-8.2) 10/31/19 10:40 Absolute Lymphs (auto) 2.1 10^3/uL (0.5-4.7) 10/31/19 10:40 Absolute Monos (auto) 0.8 10^3/uL (0.1-1.4) 10/31/19 10:40 Absolute Eos (auto) 0.3 10^3/uL (0.0-0.6) 10/31/19 10:40 Absolute Basos (auto) 0.0 10^3/uL (0.0-0.2) 10/31/19 10:40 Seg Neutrophils % 69.5 % (42-78) 10/31/19 10:40 ESR 29 mm/hr (0-30) 10/31/19 10:40 PT 12.5 SEC (11.4-15.4) 10/31/19 10:40 INR 0.91 10/31/19 10:40 APTT 36.2 SEC (23.5-35.8) H 10/31/19 10:40 Sodium 138.9 mmol/L (137-145) 11/01/19 04:19 Potassium 4.4 mmol/L (3.6-5.0) 11/01/19 04:19 Chloride 106 mmol/L (98-107) 11/01/19 04:19 Carbon Dioxide 28 mmol/L (22-30) 11/01/19 04:19 Anion Gap 5 (5-19) 11/01/19 04:19 BUN 26 mg/dL (7-20) H 11/01/19 04:19 Creatinine 0.95 mg/dL (0.52-1.25) 11/01/19 04:19 Est GFR ( Amer) > 60 (>60) 11/01/19 04:19 Est GFR (MDRD) Non-Af 56 (>60) L 11/01/19 04:19 Glucose 98 mg/dL (75-110) 11/01/19 04:19 Hemoglobin A1c % 5.5 % (4.7-6.0) 11/01/19 04:19 Calcium 8.7 mg/dL (8.4-10.2) 11/01/19 04:19 Total Bilirubin 1.4 mg/dL (0.2-1.3) H 10/31/19 10:40 Direct Bilirubin 0.0 mg/dL (0.0-0.4) 10/31/19 10:40 Neonat Total Bilirubin Not Reportable 10/31/19 10:40 Neonat Direct Bilirubin Not Reportable 10/31/19 10:40 Neonat Indirect Bili Not Reportable 10/31/19 10:40 AST 27 U/L (14-36) 10/31/19 10:40 ALT 20 U/L (<35) 10/31/19 10:40 Alkaline Phosphatase 87 U/L (38-126) 10/31/19 10:40 Troponin I < 0.012 ng/mL 10/31/19 10:40 Total Protein 7.8 g/dL (6.3-8.2) 10/31/19 10:40 Albumin 4.5 g/dL (3.5-5.0) 10/31/19 10:40 Triglycerides 111 mg/dL (<150) 11/01/19 04:19 Cholesterol 157.95 mg/dL (0-200) 11/01/19 04:19 LDL Cholesterol Direct 87 mg/dL (<100) 11/01/19 04:19 VLDL Cholesterol 22.0 mg/dL (10-31) 11/01/19 04:19 HDL Cholesterol 54 mg/dL (>40) 11/01/19 04:19 Urine Color STRAW 11/01/19 07:50 Urine Appearance CLEAR 11/01/19 07:50 Urine pH 6.0 (5.0-9.0) 11/01/19 07:50 Ur Specific [place] 1.008 11/01/19 07:50 Urine Protein NEGATIVE mg/dL (NEGATIVE) 11/01/19 07:50 Urine Glucose (UA) NEGATIVE mg/dL (NEGATIVE) 11/01/19 07:50 Urine Ketones NEGATIVE mg/dL (NEGATIVE) 11/01/19 07:50 Urine Blood SMALL (NEGATIVE) H 11/01/19 07:50 Urine Nitrite NEGATIVE (NEGATIVE) 11/01/19 07:50 Urine Bilirubin NEGATIVE (NEGATIVE) 11/01/19 07:50 Urine Urobilinogen NEGATIVE mg/dL (<2.0) 11/01/19 07:50 Ur Leukocyte Esterase NEGATIVE (NEGATIVE) 11/01/19 07:50 Urine WBC (Auto) 1 /HPF 11/01/19 07:50 Urine RBC (Auto) 1 /HPF 11/01/19 07:50 U Hyaline Cast (Auto) 6 /LPF 10/31/19 10:25 Urine Bacteria (Auto) TRACE /HPF 11/01/19 07:50 Squamous Epi Cells Auto <1 /HPF 11/01/19 07:50 Urine Mucus (Auto) OCC /LPF 10/31/19 10:25 Urine Ascorbic Acid NEGATIVE (NEGATIVE) 11/01/19 07:50 10/31/19 10:40 Troponin I < 0.012 Impressions: Brain MRI with MRA 10/31/19 00:00 IMPRESSION: No discrete filling defect, aneurysm, or obvious stenosis is seen within the anterior or posterior intracranial circulation. Head MRI 10/31/19 00:00 IMPRESSION: 1. No acute intracranial process is seen. 2. Mild cerebral atrophy and periventricular white matter changes are seen. Chest X-Ray 10/31/19 10:08 IMPRESSION: Acute patchy asymmetric opacities in the inferior aspect of the right hemithorax that could represent atelectasis or pneumonia. Carotid Doppler Study 10/31/19 10:09 IMPRESSION: NO HEMODYNAMICALLY SIGNIFICANT STENOSIS. Head CT 10/31/19 10:46 IMPRESSION: NORMAL BRAIN CT WITHOUT CONTRAST. EVIDENCE OF ACUTE STROKE: NO. Plan Plan of Treatment: Follow-up with PCP Follow-up with branch office manager Follow-up with outpatient neurologist You have been provided with a copy of your test results, please take these with you to all of your follow-up appointments Time Spent: Greater than 30 Minutes Stroke Is this a Stroke Patient?: No Acute Heart Failure - Is this a Heart Failure Patient?: No
[2019-11-01 16:18] VITALS: BP 138/71
== END 2019-11-01 22:16 | disposition home or self-care (01) ==
LOC: ER 09:07 → INTOOBSV 11:23 → EH 11:23 → 5 13:02
PROVIDERS: ADMIT Hospitalist; ATTEND Nurse Practitioner
DX: G45.9 Transient cerebral ischemic attack, unspecified (principal); G45.3 Amaurosis fugax; H57.12 Ocular pain, left eye; R29.6 Repeated falls; I10 Essential (primary) hypertension; E78.5 Hyperlipidemia, unspecified; R01.1 Cardiac murmur, unspecified; J44.9 Chronic obstructive pulmonary disease, unspecified; R27.9 Unspecified lack of coordination; R20.0 Anesthesia of skin; R20.2 Paresthesia of skin; M79.652 Pain in left thigh; I25.10 Atherosclerotic heart disease of native coronary artery without angina pectoris; K58.9 Irritable bowel syndrome, unspecified; M13.852 Other specified arthritis, left hip; M13.851 Other specified arthritis, right hip; I69.322 Dysarthria following cerebral infarction; Z79.51 Long term (current) use of inhaled steroids; Z79.899 Other long term (current) drug therapy; Z79.82 Long term (current) use of aspirin; Z95.2 Presence of prosthetic heart valve; Z60.2 Problems related to living alone; R29.700 NIHSS score 0
CPT/HCPCS: 93005; 99285; 36415 ×2; 85025; 85027; 85652; 85610; 85730; 80048; 80053; 81001 ×2; 84484; 83036; 80061; 93306; 93880; 70551; 70544; 71045; 70450; 94799; 93010; 97116; 97162; 92522; 97535; 97165; G0378 ×2; A9270 ×5; J1650 ×2; J3490 ×3